=== PATIENT | male | born 1965 | race African-American/Black ===

== ENCOUNTER 2021-09-11 08:19 | Emergency (ER) | payer OTHER ==
[2021-09-11 08:28] VITALS: TEMP 98.8
[2021-09-11] MEDS ORDERED: SODIUM CHLORIDE 0.9% 1,000 ML IV STA (08:35)
[2021-09-11] MEDS ORDERED: HYDROmorphone 1 MG/ML 1 ML SYRINGE IVP STA (08:40)
[2021-09-11 08:55] LABS: Basophils # (A) 0.1 k/uL (0-0.2); Basophils % (A) 1 %; Eosinophils # (A) 0.2 k/uL (0-0.7); Eosinophils % (A) 4 %; HCT 44.8 % (39.0-53.0); HGB 14.7 gm/dL (13.0-17.5); Lymphocytes # (A) 2.5 k/uL (1.0-4.8); Lymphocytes % (A) 38 %; MCH 25.8 pg (25.0-35.0); MCHC 32.7 g/dL (31.0-37.0); MCV 78.9 fL (80.0-100.0); Mean Platelet Volume 7.1; Monocytes # (A) 0.6 k/uL (0-1.0); Monocytes % (A) 9 %; Neutrophils # (A) 3.1 k/uL (1.3-7.7); Neutrophils % (A) 47 %; Platelet Count 267 k/uL (150-450); RBC 5.68 m/uL (4.30-5.90); RDW 14.7 % (11.5-15.5); WBC 6.6 k/uL (3.8-10.6)
[2021-09-11 08:59] LABS: Appearance,Urine Clear (Clear); Bilirubin,Urine Negative (Negative); Blood,Urine Small (Negative); Color,Urine Yellow; Glucose,Urine (UA) Negative (Negative); Ketones,Urine Negative (Negative); Leukocyte Esterase,Urine Negative (Negative); Mucus,Urine Rare /hpf; Nitrite,Urine Negative (Negative); Protein,Urine Negative (Negative); RBC,Urine 1 /hpf (0-5); Specific Gravity,Urine 1.026 (1.001-1.035); Urobilinogen,Urine <2.0 mg/dL (<2.0); WBC,Urine 2 /hpf (0-5)
[2021-09-11 09:05] LABS: ALT 24 U/L (4-49); AST 25 U/L (17-59); African American GFR (CKD) >90 (>60 ml/min/1.73 sqM); Albumin 4.2 g/dL (3.5-5.0); Alkaline Phosphatase 91 U/L (38-126); Amylase 95 U/L (30-110); Anion Gap 9 mmol/L; Blood Urea Nitrogen 18 mg/dL (9-20); Calcium 9.4 mg/dL (8.4-10.2); Carbon Dioxide 24 mmol/L (22-30); Chloride 105 mmol/L (98-107); Glucose 120 mg/dL (74-99); Lipase 66 U/L (23-300); Non-African American GFR(CKD) 79 (>60 ml/min/1.73 sqM); Potassium 4.3 mmol/L (3.5-5.1); Sodium 138 mmol/L (137-145); Total Bilirubin 0.5 mg/dL (0.2-1.3); Total Protein 8.1 g/dL (6.3-8.2)
--- NOTE | 2021-09-11 10:03 | CT ---
EXAMINATION TYPE: CT abdomen pelvis w con DATE OF EXAM: 09/11/2021 COMPARISON: None HISTORY: Left lower quadrant pain. CT DLP: 1332.4 mGycm, Automated Exposure Control for Dose Reduction was Utilized. CONTRAST: CT scan of the abdomen and pelvis is performed without oral but with IV Contrast, patient injected wi th 100 mL of Isovue 300. FINDINGS: LUNG BASES: No significant abnormality is appreciated. LIVER/GB: There is rim calcified 2.3 cm inferior gallstone. No surrounding inflammatory change or fat stranding. PANCREAS: No significant abnormality is seen. SPLEEN: No significant abnormality is seen. ADRENALS: No significant abnormality is seen. KIDNEYS: There are simple appearing 2.8 cm thin-walled cyst lower pole left kidney. Subcentimeter les ion centrally axial image 23 delayed phase images. Symmetric cortical uptake and excretion without hy dronephrosis seen bilaterally. BOWEL: Small bowel feces sign terminal ileum. No suspicious small bowel dilatation. Findings consist ent with delayed passage of ingested material to colonic level. Normal-appearing appendix ascending f rom cecum. PROSTATE/SEMINAL VESICLES: Enlarged prostate consistent with BPH. Scattered tiny bilateral pelvic phl eboliths. LYMPH NODES: No greater than 1cm abdominal or pelvic lymph nodes are appreciated. OSSEOUS STRUCTURES: Mild to moderate multilevel spurring. [id number] disc space narrowing L3-L4 and L4-L5 levels. Facet arthropathy in the lower lumbar spine. OTHER: No significant additional abnormality is seen. IMPRESSION: No significant acute finding is seen to account for patient's clinical symptoms of left lower quadrant pain.
--- NOTE | 2021-09-11 10:30 | ED ---
Abdominal Pain HPI - General Chief Complaint: Abdominal Pain Stated Complaint: L side swollen & tingling, Hypertension Time Seen by Provider: 09/11/21 08:33 Source: patient, RN notes reviewed Mode of arrival: ambulatory Limitations: no limitations - History of Present Illness Initial Comments: Patient is a 55-year-old male that presents to the emergency department complaining of high blood pressure left lower quadrant abdominal pain. Patient notes this pain started late last night early this morning. Patient denied any history of kidney stones diverticulitis or any other abdominal issues. Patient did appear to be moderately uncomfortable sitting up in bed. Patient denied any ALLERGIES to medications. Patient denied chest pain shortness of breath headache nausea vomiting diarrhea constipation fever fatigue chills. - Related Data Home Medications Medication Instructions Recorded Confirmed Albuterol Sulfate [Ventolin HFA] 1 puff INHALATION RT-QID PRN 09/11/21 09/11/21 Budesonide/Formoterol Fumarate 2 puff INHALATION RT-BID 09/11/21 09/11/21 [Symbicort 160-4.5 Mcg Inhaler] Chlorthalidone [Hygroton] 25 mg PO DAILY 09/11/21 09/11/21 Ergocalciferol [Vitamin D2 (1250 1,250 mcg PO Q30D 09/11/21 09/11/21 Mcg = 99017 Iu)] Ipratropium-Albuterol Nebulize 3 ml INHALATION RT-QID 09/11/21 09/11/21 [Duoneb 0.5 mg-3 mg/3 ml Soln] Losartan Potassium [Cozaar] 100 mg PO DAILY 09/11/21 09/11/21 Montelukast [Singulair] 10 mg PO DAILY 09/11/21 09/11/21 amLODIPine [Norvasc] 10 mg PO DAILY 09/11/21 09/11/21 hydrALAZINE HCL [Apresoline] 25 mg PO TID 09/11/21 09/11/21 Allergies Allergy/AdvReac Type Severity Reaction Status Date / Time No Known Allergies Allergy Verified 09/11/21 10:26 Review of Systems ROS Statement: Those systems with pertinent positive or pertinent negative responses have been documented in the HPI. ROS Other: All systems not noted in ROS Statement are negative. Past Medical History Past Medical History: Asthma, Hypertension History of Any Multi-Drug Resistant Organisms: None Reported Past Surgical History: No Surgical Hx Reported Past Psychological History: No Psychological Hx Reported Smoking Status: Never smoker Past Alcohol Use History: None Reported Past Drug Use History: None Reported General Exam Limitations: no limitations General appearance: alert, in no apparent distress Head exam: Present: atraumatic, normocephalic, normal inspection Eye exam: Present: normal appearance, PERRL, EOMI. Absent: scleral icterus, conjunctival injection, periorbital swelling ENT exam: Present: normal exam, mucous membranes moist Neck exam: Present: normal inspection Respiratory exam: Present: normal lung sounds bilaterally. Absent: respiratory distress, wheezes, rales, rhonchi, stridor Cardiovascular Exam: Present: regular rate, normal rhythm, normal heart sounds. Absent: systolic murmur, diastolic murmur, rubs, gallop, clicks GI/Abdominal exam: Present: soft, tenderness (Left lower quadrant, left flank.), normal bowel sounds. Absent: distended, guarding, rebound, rigid Extremities exam: Present: normal inspection, full ROM, normal capillary refill. Absent: tenderness, pedal edema, joint swelling, calf tenderness Neurological exam: Present: alert, oriented X3 Psychiatric exam: Present: normal affect, normal mood Skin exam: Present: warm, dry, intact, normal color. Absent: rash Course Vital Signs 09/11/21 09/11/21 08:25 10:27 Temperature 98.8 F Pulse Rate 74 64 Respiratory 20 18 Rate Blood Pressure 151/91 128/80 O2 Sat by Pulse 98 94 L Oximetry Medical Decision Making - Medical Decision Making 55-year-old male complaining of left lower quadrant pain was one. Labs, 1 L normal saline, a milligram of Dilaudid CT of the abdomen and pelvis ordered. Labs unremarkable. CT shows no acute findings. Given small to blood in the urine patient most likely has a small kidney stone. Case discussed with Dr. Hernandez, patient discharge home. Patient will be given referral to GI specialist. - Lab Data Result diagrams: 09/11/21 08:42 09/11/21 08:42 Lab Results 09/11/21 09/11/21 09/11/21 Range/Units 08:42 08:42 08:42 WBC 6.6 (3.8-10.6) k/uL RBC 5.68 (4.30-5.90) m/uL Hgb 14.7 (13.0-17.5) gm/dL Hct 44.8 (39.0-53.0) % MCV 78.9 L (80.0-100.0) fL MCH 25.8 (25.0-35.0) pg MCHC 32.7 (31.0-37.0) g/dL RDW 14.7 (11.5-15.5) % Plt Count 267 (150-450) k/uL MPV 7.1 Neutrophils % 47 % Lymphocytes % 38 % Monocytes % 9 % Eosinophils % 4 % Basophils % 1 % Neutrophils # 3.1 (1.3-7.7) k/uL Lymphocytes # 2.5 (1.0-4.8) k/uL Monocytes # 0.6 (0-1.0) k/uL Eosinophils # 0.2 (0-0.7) k/uL Basophils # 0.1 (0-0.2) k/uL Sodium 138 (137-145) mmol/L Potassium 4.3 (3.5-5.1) mmol/L Chloride 105 (98-107) mmol/L Carbon Dioxide 24 (22-30) mmol/L Anion Gap 9 mmol/L BUN 18 (9-20) mg/dL Creatinine 1.07 (0.66-1.25) mg/dL Est GFR (CKD-EPI)AfAm >90 (>60 ml/min/1.73 sqM) Est GFR (CKD-EPI)NonAf 79 (>60 ml/min/1.73 sqM) Glucose 120 H (74-99) mg/dL Calcium 9.4 (8.4-10.2) mg/dL Total Bilirubin 0.5 (0.2-1.3) mg/dL AST 25 (17-59) U/L ALT 24 (4-49) U/L Alkaline Phosphatase 91 (38-126) U/L Total Protein 8.1 (6.3-8.2) g/dL Albumin 4.2 (3.5-5.0) g/dL Amylase 95 (30-110) U/L Lipase 66 (23-300) U/L Urine Color Yellow Urine Appearance Clear (Clear) Urine pH 5.0 (5.0-8.0) Ur Specific [place] 1.026 (1.001-1.035) Urine Protein Negative (Negative) Urine Glucose (UA) Negative (Negative) Urine Ketones Negative (Negative) Urine Blood Small H (Negative) Urine Nitrite Negative (Negative) Urine Bilirubin Negative (Negative) Urine Urobilinogen <2.0 (<2.0) mg/dL Ur Leukocyte Esterase Negative (Negative) Urine RBC 1 (0-5) /hpf Urine WBC 2 (0-5) /hpf Urine Mucus Rare H (None) /hpf - EKG Data -: EKG Interpreted by Me EKG shows normal: sinus rhythm Rate: normal EKG Comments: Ventricular rate 62 bpm, WV interval 146 ms, QRS duration 96 ms, QTC 456 ms, PRT axes 62/49/67, normal sinus rhythm, normal ECG. - Radiology Data Radiology results: report reviewed, image reviewed CT of the abdomen and pelvis: No significant acute findings seen to come for patient's clinical symptoms of left lower quadrant pain. Disposition Clinical Impression: Abdominal pain Disposition: HOME SELF-CARE Condition: Stable Instructions (If sedation given, give patient instructions): Abdominal Pain (ED) Additional Instructions: Please return to the Emergency Department if symptoms worsen or any other concerns. Follow-up with primary care 1-2 days. Follow-up with GI specialist when feasible. Take Tylenol Motrin alternating every 3 hours as needed for pain. Is patient prescribed a controlled substance at d/c from ED?: No Referrals: Jeff Fine MD [Primary Care Provider] - 1-2 days Time of Disposition: 10:41
[2021-09-11 10:36] VITALS: BP 128/80; PULSE 64; RESP 18
== END 2021-09-11 10:55 | disposition home or self-care (01) ==
LOC: EC 08:19
DX: R10.9 Unspecified abdominal pain (principal); J45.909 Unspecified asthma, uncomplicated; I10 Essential (primary) hypertension; Z79.51 Long term (current) use of inhaled steroids; Z79.899 Other long term (current) drug therapy
CPT/HCPCS: 36415; 80053; 82150; 83690; 85025; 81001; 74177; 99284; 96374; 96361; J1170; Q9967

== ENCOUNTER → 2022-05-14 | Outpatient (CLI) | payer OTHER ==
--- NOTE | 2022-05-14 23:02 | CT ---
EXAMINATION TYPE: CT abdomen w con CT DLP: 903 mGycm, Automated exposure control for dose reduction was used. DATE OF EXAM: 05/14/2022 6:17 PM COMPARISON: 09/11/2021 CT abdomen pelvis. CLINICAL INDICATION:Male, 56 years old with history of R10.12 LUQ abd pain; LUQ sharp pain that radia jackson to his side and back x2 months TECHNIQUE: Axial CT of the abdomen. Sagittal and [facility] Contrast used:100 mL of Isovue 300 with IV Contrast, Oral contrast used: with Oral Contrast FINDINGS: LOWER CHEST: Unremarkable ABDOMEN LIVER: Diffusely hypoattenuating parenchyma. GALLBLADDER AND BILE DUCTS: The gallbladder demonstrates diffuse circumferential wall thickening chacho uring up to 15 mm with ill-defined borders of the gallbladder extending along the inferior margin of the liver. PANCREAS: Unremarkable. SPLEEN: Unremarkable. ADRENAL GLANDS: Unremarkable. KIDNEYS AND URETERS: No evidence of hydronephrosis or renal calculus. The ureters are unremarkable. STOMACH AND BOWEL: There is circumferential thickening of the distal esophagus extending into the gas tric cardia measuring up to 9 mm in thickness and the distal esophagus with diffusely thickened super ior aspect of the gastric lumen measuring up to 2.1 cm. No evidence of bowel obstruction. Appendix is normal/ PERITONEUM: No evidence of pneumoperitoneum or free fluid. VASCULATURE: No evidence of aortic aneurysm. MUSCULOSKELETAL: Destructive osseous lesion with soft tissue component involving the redundant abdome n (no medial aspect of the left 11th rib measuring approximately 3.4 x 2.5 x by 2.3 cm. There is a crowe spicious lesion within the right iliac bone series 3 image 61 measuring 6 mm along with the vertebral body L1 measuring up to 15 mm. Lucent area within the right zone 1 of the sacrum measuring up to 16 mm with another 6 mm lesion more anteriorly. LYMPH NODES: Scattered enlarged lymph nodes are seen along the retroperitoneum example includes more confluent area to the left of the aorta measuring at least 3.8 x 1.6 cm. SOFT TISSUE/ABDOMINAL WALL: Unremarkable IMPRESSION: 1. Distal esophageal wall thickening extending into the gastric cardia , this in combination with le ft rib #11 expansile soft tissue lesion, retroperitoneal lymphadenopathy and other osseous lesions ar e concerning for primary malignancy with metastatic disease. 2. Diffuse marked gallbladder wall thickening measuring up to 15 mm with ill-defined border with the liver. This may represent a separate infectious/inflammatory process versus metastatic disease from # 1 versus primary synchronous malignancy. Further evaluation with dedicated right upper quadrant limit ed ultrasound of the gallbladder is recommended. 3. Hepatic steatosis.
== END | disposition home or self-care (01) ==
LOC: RADCTMAIN 16:58
PROVIDERS: ATTEND Family Medicine
DX: K76.0 Fatty (change of) liver, not elsewhere classified (principal); K82.8 Other specified diseases of gallbladder
CPT/HCPCS: 74160; Q9967

== ENCOUNTER 2022-06-09 04:43 | Inpatient (IN) | payer OTHER ==
[2022-06-09] MEDS ORDERED: HYDROmorphone 1 MG/ML 1 ML SYRINGE IVP STA (05:04)
[2022-06-09] MEDS ORDERED: PANTOPRAZOLE 40 MG/10 ML VIAL IVP STA (05:04)
[2022-06-09] MEDS ORDERED: PROCHLORPERAZINE INJ 10 MG/2 ML VIAL IVP STA (05:04)
--- NOTE | 2022-06-09 05:05 | ED ---
GI Bleed HPI - General Chief complaint: GI Bleed Stated complaint: SOB Time Seen by Provider: 06/09/22 04:48 Source: patient, EMS, RN notes reviewed, old records reviewed Mode of arrival: EMS Limitations: no limitations - History of Present Illness Initial comments: This is a 56-year-old male to the emergency department for evaluation. Patient's well-known to our emergency department, patient presents today for evaluation of abdominal pain chest pain and vomiting blood. Patient is significantly nauseous. Patient does have chest pain and abdominal pain. Patient is not lightheaded dizzy or weak. Patient has no prior history of bleeding from his stomach MD complaint: blood streaked emesis -: hour(s) Radiation: none Severity scale (1-10): 7 Quality: sharp, constant Consistency: constant Improves with: none Worsens with: vomiting Context: history of GI bleed Associated Symptoms: abdominal pain, nausea, vomiting Treatments Prior to Arrival: none - Related Data Home Medications Medication Instructions Recorded Confirmed Budesonide/Formoterol Fumarate 2 puff INHALATION RT-BID 09/11/21 05/26/22 [Symbicort 160-4.5 Mcg Inhaler] Chlorthalidone [Hygroton] 25 mg PO DAILY 09/11/21 05/26/22 Losartan Potassium [Cozaar] 100 mg PO DAILY 09/11/21 05/26/22 Montelukast [Singulair] 10 mg PO DAILY 09/11/21 05/26/22 amLODIPine [Norvasc] 10 mg PO DAILY 09/11/21 05/26/22 Albuterol Sulfate [Proair Hfa] 1 puff INHALATION RT-QID PRN 05/26/22 05/26/22 hydrALAZINE HCL [Apresoline] 10 mg PO BID 05/26/22 05/26/22 Previous Rx's Medication Instructions Recorded Tamsulosin [Flomax] 0.4 mg PO PC-SUPPER #30 cap 05/29/22 Allergies Allergy/AdvReac Type Severity Reaction Status Date / Time No Known Allergies Allergy Verified 06/09/22 04:48 Review of Systems ROS Statement: Those systems with pertinent positive or pertinent negative responses have been documented in the HPI. ROS Other: All systems not noted in ROS Statement are negative. Past Medical History Past Medical History: Asthma, Cancer, Hypertension Additional Past Medical History / Comment(s): Recent difficulty swallowing/esophageal stricture. Stomach CA History of Any Multi-Drug Resistant Organisms: None Reported Past Surgical History: No Surgical Hx Reported Past Anesthesia/Blood Transfusion Reactions: Unable to Obtain Additional Past Anesthesia/Blood Transfusion Reaction / Comment(s): Pt has never had surgery/anesthesia. Past Psychological History: No Psychological Hx Reported Smoking Status: Never smoker Past Alcohol Use History: None Reported Past Drug Use History: None Reported - Past Family History Father Family Medical History: No Reported History Additional Family Medical History / Comment(s): Father is healthy Mother Additional Family Medical History / Comment(s): Mother has a trach/pt cannot recall reason. Brother(s) Additional Family Medical History / Comment(s): Brother has colostomy, pt cannot recall reason. General Exam Limitations: no limitations General appearance: alert, in no apparent distress Head exam: Present: atraumatic, normocephalic, normal inspection Eye exam: Present: normal appearance, PERRL, EOMI. Absent: scleral icterus, conjunctival injection, periorbital swelling ENT exam: Present: normal exam, mucous membranes moist Neck exam: Present: normal inspection. Absent: tenderness, meningismus, lymphadenopathy Respiratory exam: Present: normal lung sounds bilaterally. Absent: respiratory distress, wheezes, rales, rhonchi, stridor Cardiovascular Exam: Present: normal rhythm, tachycardia, normal heart sounds. Absent: systolic murmur, diastolic murmur, rubs, gallop, clicks GI/Abdominal exam: Present: soft, normal bowel sounds. Absent: distended, tenderness, guarding, rebound, rigid Extremities exam: Present: normal inspection, full ROM, normal capillary refill. Absent: tenderness, pedal edema, joint swelling, calf tenderness Back exam: Present: normal inspection Neurological exam: Present: alert, oriented X3, CN II-XII intact Psychiatric exam: Present: normal affect, normal mood Skin exam: Present: warm, dry, intact, normal color. Absent: rash Course Vital Signs 06/09/22 06/09/22 06/09/22 04:48 04:55 06:00 Temperature 100 F H 98.9 F Pulse Rate 100 96 100 Respiratory 16 16 Rate Blood Pressure 86/59 102/62 97/62 O2 Sat by Pulse 98 97 Oximetry - Reevaluation(s) Reevaluation #1: 06/09/22 07:54 Record is reviewed Reevaluation #2: 06/09/22 07:54 No active upper GI bleeding or vomiting of blood here in the ER Reevaluation #3: 06/09/22 07:55 Patient informed results questions answered - Consultations Consultation #1: Spoke with Dr. Fine who agrees to admit this patient Medical Decision Making - Medical Decision Making 56 male presents today for evaluation. Presents for known history of stomach cancer today vomiting blood. He does have significant anemia which she will transfuse. Surgery consult - Lab Data Result diagrams: 06/09/22 05:04 06/09/22 05:04 Lab Results 06/09/22 06/09/22 06/09/22 Range/Units 05:00 05:04 05:04 WBC 10.4 (3.8-10.6) k/uL RBC 2.61 L (4.30-5.90) m/uL Hgb 6.3 L* D (13.0-17.5) gm/dL Hct 20.5 L (39.0-53.0) % MCV 78.4 L (80.0-100.0) fL MCH 24.0 L (25.0-35.0) pg MCHC 30.6 L (31.0-37.0) g/dL RDW 16.4 H (11.5-15.5) % Plt Count 552 H (150-450) k/uL MPV 7.6 Neutrophils % 73 % Lymphocytes % 20 % Monocytes % 4 % Eosinophils % 1 % Basophils % 1 % Neutrophils # 7.6 (1.3-7.7) k/uL Lymphocytes # 2.1 (1.0-4.8) k/uL Monocytes # 0.4 (0-1.0) k/uL Eosinophils # 0.1 (0-0.7) k/uL Basophils # 0.1 (0-0.2) k/uL Hypochromasia Moderate Anisocytosis Slight PT 11.7 (9.0-12.0) sec INR 1.1 (<1.2) APTT 21.7 L (22.0-30.0) sec Sodium (137-145) mmol/L Potassium (3.5-5.1) mmol/L Chloride (98-107) mmol/L Carbon Dioxide (22-30) mmol/L Anion Gap mmol/L BUN (9-20) mg/dL Creatinine (0.66-1.25) mg/dL Est GFR (CKD-EPI)AfAm (>60 ml/min/1.73 sqM) Est GFR (CKD-EPI)NonAf (>60 ml/min/1.73 sqM) Glucose (74-99) mg/dL Calcium (8.4-10.2) mg/dL Total Bilirubin (0.2-1.3) mg/dL AST (17-59) U/L ALT (4-49) U/L Alkaline Phosphatase (38-126) U/L Troponin I (0.000-0.034) ng/mL Total Protein (6.3-8.2) g/dL Albumin (3.5-5.0) g/dL Lipase (23-300) U/L Blood Type Blood Type Confirm O Positive Blood Type Recheck Bld Type Recheck Status Antibody Screen Crossmatch Spec Expiration Date 06/09/22 06/09/22 06/09/22 Range/Units 05:04 05:04 05:04 WBC (3.8-10.6) k/uL RBC (4.30-5.90) m/uL Hgb (13.0-17.5) gm/dL Hct (39.0-53.0) % MCV (80.0-100.0) fL MCH (25.0-35.0) pg MCHC (31.0-37.0) g/dL RDW (11.5-15.5) % Plt Count (150-450) k/uL MPV Neutrophils % % Lymphocytes % % Monocytes % % Eosinophils % % Basophils % % Neutrophils # (1.3-7.7) k/uL Lymphocytes # (1.0-4.8) k/uL Monocytes # (0-1.0) k/uL Eosinophils # (0-0.7) k/uL Basophils # (0-0.2) k/uL Hypochromasia Anisocytosis PT (9.0-12.0) sec INR (<1.2) APTT (22.0-30.0) sec Sodium 130 L (137-145) mmol/L Potassium 3.5 (3.5-5.1) mmol/L Chloride 94 L (98-107) mmol/L Carbon Dioxide 20 L (22-30) mmol/L Anion Gap 16 mmol/L BUN 35 H (9-20) mg/dL Creatinine 1.09 (0.66-1.25) mg/dL Est GFR (CKD-EPI)AfAm 88 (>60 ml/min/1.73 sqM) Est GFR (CKD-EPI)NonAf 76 (>60 ml/min/1.73 sqM) Glucose 196 H (74-99) mg/dL Calcium 8.4 (8.4-10.2) mg/dL Total Bilirubin 0.3 (0.2-1.3) mg/dL AST 23 (17-59) U/L ALT 18 (4-49) U/L Alkaline Phosphatase 96 (38-126) U/L Troponin I <0.012 (0.000-0.034) ng/mL Total Protein 6.5 (6.3-8.2) g/dL Albumin 3.2 L (3.5-5.0) g/dL Lipase (23-300) U/L Blood Type O Positive Blood Type Confirm Blood Type Recheck No Previous Record Bld Type Recheck Status CABO Indicated Antibody Screen NEGATIVE Crossmatch See Detail Spec Expiration Date 06/12/2022 - 230306/09/22 Range/Units 05:04 WBC (3.8-10.6) k/uL RBC (4.30-5.90) m/uL Hgb (13.0-17.5) gm/dL Hct (39.0-53.0) % MCV (80.0-100.0) fL MCH (25.0-35.0) pg MCHC (31.0-37.0) g/dL RDW (11.5-15.5) % Plt Count (150-450) k/uL MPV Neutrophils % % Lymphocytes % % Monocytes % % Eosinophils % % Basophils % % Neutrophils # (1.3-7.7) k/uL Lymphocytes # (1.0-4.8) k/uL Monocytes # (0-1.0) k/uL Eosinophils # (0-0.7) k/uL Basophils # (0-0.2) k/uL Hypochromasia Anisocytosis PT (9.0-12.0) sec INR (<1.2) APTT (22.0-30.0) sec Sodium (137-145) mmol/L Potassium (3.5-5.1) mmol/L Chloride (98-107) mmol/L Carbon Dioxide (22-30) mmol/L Anion Gap mmol/L BUN (9-20) mg/dL Creatinine (0.66-1.25) mg/dL Est GFR (CKD-EPI)AfAm (>60 ml/min/1.73 sqM) Est GFR (CKD-EPI)NonAf (>60 ml/min/1.73 sqM) Glucose (74-99) mg/dL Calcium (8.4-10.2) mg/dL Total Bilirubin (0.2-1.3) mg/dL AST (17-59) U/L ALT (4-49) U/L Alkaline Phosphatase (38-126) U/L Troponin I (0.000-0.034) ng/mL Total Protein (6.3-8.2) g/dL Albumin (3.5-5.0) g/dL Lipase 83 (23-300) U/L Blood Type Blood Type Confirm Blood Type Recheck Bld Type Recheck Status Antibody Screen Crossmatch Spec Expiration Date - EKG Data -: EKG Interpreted by Me (EKG is sinus rhythm 97 NE 144 QRS 94 QTC 462) Critical Care Time Critical Care Time: Yes Total Critical Care Time: 31 Disposition Clinical Impression: Anemia, Abdominal pain, Stomach cancer, UGIB (upper gastrointestinal bleed) Disposition: ADMITTED IP TO THIS [facility] Condition: Serious Is patient prescribed a controlled substance at d/c from ED?: No Referrals: Jeff Fine MD [Primary Care Provider] - 1-2 days Time of Disposition: 07:55
[2022-06-09 05:23] LABS: Anisocytosis Slight; Basophils # (A) 0.1 k/uL (0-0.2); Basophils % (A) 1 %; Eosinophils # (A) 0.1 k/uL (0-0.7); Eosinophils % (A) 1 %; HCT 20.5 % (39.0-53.0); Hypochromasia Moderate; Lymphocytes # (A) 2.1 k/uL (1.0-4.8); Lymphocytes % (A) 20 %; MCHC 30.6 g/dL (31.0-37.0); MCV 78.4 fL (80.0-100.0); Mean Platelet Volume 7.6; Monocytes # (A) 0.4 k/uL (0-1.0); Monocytes % (A) 4 %; Neutrophils # (A) 7.6 k/uL (1.3-7.7); Neutrophils % (A) 73 %; Platelet Count 552 k/uL (150-450); RBC 2.61 m/uL (4.30-5.90); RDW 16.4 % (11.5-15.5); WBC 10.4 k/uL (3.8-10.6)
[2022-06-09 05:33] LABS: Albumin 3.2 g/dL (3.5-5.0); Calcium 8.4 mg/dL (8.4-10.2); Potassium 3.5 mmol/L (3.5-5.1); Total Bilirubin 0.3 mg/dL (0.2-1.3); Total Protein 6.5 g/dL (6.3-8.2)
[2022-06-09 05:34] LABS: HGB 6.3 gm/dL (13.0-17.5)
[2022-06-09 05:40] LABS: INR 1.1 (<1.2); Partial Thromboplastin Time 21.7 sec (22.0-30.0); Prothrombin Time 11.7 sec (9.0-12.0)
[2022-06-09] MEDS ORDERED: NALOXONE 0.4 MG/ML 1 ML VIAL IV PRN (07:28)
[2022-06-09] MEDS ORDERED: HYDROmorphone 1 MG/ML 1 ML SYRINGE IVP PRN (07:29)
[2022-06-09] MEDS: SODIUM CHLORIDE 0.9% 1,000 ML IV SCH ×3 (11:49→23:12)
--- NOTE | 2022-06-09 18:35 | P.GSCN ---
History of Present Illness Consult date: 06/09/22 Reason for Consult: Vomiting blood History of present illness: Patient is known to me due to recent EGD where we diagnosed cancer at the GE junction. Tomorrow he scheduled to start chemotherapy. He still hasn't been able to eat well. He's taking some liquids. The patient has had some vomiting blood and was very lightheaded and dizzy so CBC done showing marked anemia denies blood in the stool or dark tarry stool. Denies abdominal pain Review of Systems All systems: negative Past Medical History Past Medical History: Asthma, Cancer, Hypertension Additional Past Medical History / Comment(s): Recent difficulty swallowing/esophageal stricture. Stomach CA History of Any Multi-Drug Resistant Organisms: None Reported Past Surgical History: No Surgical Hx Reported Past Anesthesia/Blood Transfusion Reactions: Unable to Obtain Additional Past Anesthesia/Blood Transfusion Reaction / Comm: Pt has never had surgery/anesthesia. Past Psychological History: No Psychological Hx Reported Additional Psychological History / Comment(s): Pt resides alone. He uses no assitive device. He does not drive, he walks. Smoking Status: Never smoker Past Alcohol Use History: None Reported Past Drug Use History: None Reported - Past Family History Father Family Medical History: No Reported History Additional Family Medical History / Comment(s): Father is healthy Mother Additional Family Medical History / Comment(s): Mother has a trach/pt cannot recall reason. Brother(s) Additional Family Medical History / Comment(s): Brother has colostomy, pt cannot recall reason. Medications and Allergies Home Medications Medication Instructions Recorded Confirmed Type Budesonide/Formoterol Fumarate 2 puff INHALATION RT-BID 09/11/21 06/09/22 History [Symbicort 160-4.5 Mcg Inhaler] Chlorthalidone [Hygroton] 25 mg PO DAILY 09/11/21 06/09/22 History Losartan Potassium [Cozaar] 100 mg PO DAILY 09/11/21 06/09/22 History Montelukast [Singulair] 10 mg PO DAILY 09/11/21 06/09/22 History amLODIPine [Norvasc] 10 mg PO DAILY 09/11/21 06/09/22 History Albuterol Sulfate [Proair Hfa] 1 puff INHALATION RT-QID PRN 05/26/22 06/09/22 History hydrALAZINE HCL [Apresoline] 10 mg PO BID 05/26/22 06/09/22 History Tamsulosin [Flomax] 0.4 mg PO PC-SUPPER #30 cap 05/29/22 06/09/22 Rx HYDROcodone/APAP 5-325MG [[place] 1 tab PO QID PRN 06/09/22 06/09/22 History 5-325] Allergies Allergy/AdvReac Type Severity Reaction Status Date / Time No Known Allergies Allergy Verified 06/09/22 08:11 Surgical - Exam Osteopathic Statement: *. No significant issues noted on an osteopathic structural exam other than those noted in the History and Physical/Consult. Vital Signs Temp Pulse Resp BP Pulse Ox 100 F H 100 16 86/59 98 06/09/22 04:48 06/09/22 04:48 06/09/22 04:48 06/09/22 04:48 06/09/22 04:48 - General no distress - Eyes normal ocular movement - Abdomen Abdomen: soft, non tender Results - Labs 06/09/22 05:04 06/09/22 05:04 Abnormal Lab Results - Last 24 Hours (Table) 06/09/22 06/09/22 06/09/22 Range/Units 05:04 05:04 05:04 RBC 2.61 L (4.30-5.90) m/uL Hgb 6.3 L* D (13.0-17.5) gm/dL Hct 20.5 L (39.0-53.0) % MCV 78.4 L (80.0-100.0) fL MCH 24.0 L (25.0-35.0) pg MCHC 30.6 L (31.0-37.0) g/dL RDW 16.4 H (11.5-15.5) % Plt Count 552 H (150-450) k/uL APTT 21.7 L (22.0-30.0) sec Sodium 130 L (137-145) mmol/L Chloride 94 L (98-107) mmol/L Carbon Dioxide 20 L (22-30) mmol/L BUN 35 H (9-20) mg/dL Glucose 196 H (74-99) mg/dL Albumin 3.2 L (3.5-5.0) g/dL Crossmatch 06/09/22 Range/Units 05:04 RBC (4.30-5.90) m/uL Hgb (13.0-17.5) gm/dL Hct (39.0-53.0) % MCV (80.0-100.0) fL MCH (25.0-35.0) pg MCHC (31.0-37.0) g/dL RDW (11.5-15.5) % Plt Count (150-450) k/uL APTT (22.0-30.0) sec Sodium (137-145) mmol/L Chloride (98-107) mmol/L Carbon Dioxide (22-30) mmol/L BUN (9-20) mg/dL Glucose (74-99) mg/dL Albumin (3.5-5.0) g/dL Crossmatch See Detail Diabetes panel 06/09/22 Range/Units 05:04 Sodium 130 L (137-145) mmol/L Potassium 3.5 (3.5-5.1) mmol/L Chloride 94 L (98-107) mmol/L Carbon Dioxide 20 L (22-30) mmol/L BUN 35 H (9-20) mg/dL Creatinine 1.09 (0.66-1.25) mg/dL Glucose 196 H (74-99) mg/dL Calcium 8.4 (8.4-10.2) mg/dL AST 23 (17-59) U/L ALT 18 (4-49) U/L Alkaline Phosphatase 96 (38-126) U/L Total Protein 6.5 (6.3-8.2) g/dL Albumin 3.2 L (3.5-5.0) g/dL Calcium panel 06/09/22 Range/Units 05:04 Calcium 8.4 (8.4-10.2) mg/dL Albumin 3.2 L (3.5-5.0) g/dL Pituitary panel 06/09/22 Range/Units 05:04 Sodium 130 L (137-145) mmol/L Potassium 3.5 (3.5-5.1) mmol/L Chloride 94 L (98-107) mmol/L Carbon Dioxide 20 L (22-30) mmol/L BUN 35 H (9-20) mg/dL Creatinine 1.09 (0.66-1.25) mg/dL Glucose 196 H (74-99) mg/dL Calcium 8.4 (8.4-10.2) mg/dL Adrenal panel 06/09/22 Range/Units 05:04 Sodium 130 L (137-145) mmol/L Potassium 3.5 (3.5-5.1) mmol/L Chloride 94 L (98-107) mmol/L Carbon Dioxide 20 L (22-30) mmol/L BUN 35 H (9-20) mg/dL Creatinine 1.09 (0.66-1.25) mg/dL Glucose 196 H (74-99) mg/dL Calcium 8.4 (8.4-10.2) mg/dL Total Bilirubin 0.3 (0.2-1.3) mg/dL AST 23 (17-59) U/L ALT 18 (4-49) U/L Alkaline Phosphatase 96 (38-126) U/L Total Protein 6.5 (6.3-8.2) g/dL Albumin 3.2 L (3.5-5.0) g/dL Assessment and Plan (1) Adenocarcinoma of gastroesophageal junction Current Visit: Yes Status: Acute Code(s): C16.0 - MALIGNANT NEOPLASM OF CARDIA SNOMED Code(s): 171041022 (2) Anemia Current Visit: Yes Status: Acute Code(s): D64.9 - ANEMIA, UNSPECIFIED SNOMED Code(s): 789987947 Plan: Bleeding is due to the known gastroesophageal junction cancer. With no active bleeding at would not recommend endoscopy. Have him transfused for symptoms of anemia. Follow-up with his oncologist.
[2022-06-09 18:48] LABS: Anisocytosis Slight; Basophils # (A) 0.1 k/uL (0-0.2); Basophils % (A) 0 %; Eosinophils # (A) 0.1 k/uL (0-0.7); Eosinophils % (A) 1 %; HCT 28.1 % (39.0-53.0); HGB 8.9 gm/dL (13.0-17.5); Hypochromasia Slight; Lymphocytes # (A) 1.9 k/uL (1.0-4.8); Lymphocytes % (A) 16 %; MCH 26.6 pg (25.0-35.0); MCHC 31.9 g/dL (31.0-37.0); MCV 83.5 fL (80.0-100.0); Mean Platelet Volume 7.6; Monocytes # (A) 0.7 k/uL (0-1.0); Monocytes % (A) 6 %; Neutrophils # (A) 9.5 k/uL (1.3-7.7); Neutrophils % (A) 77 %; Platelet Count 425 k/uL (150-450); Poikilocytosis Slight; RBC 3.36 m/uL (4.30-5.90); RDW 17.8 % (11.5-15.5); WBC 12.3 k/uL (3.8-10.6)
[2022-06-09] MEDS: ONDANSETRON 4 MG/2 ML VIAL IVP PRN (23:11)
[2022-06-10 08:17] LABS: Anisocytosis Slight; Basophils # (A) 0.1 k/uL (0-0.2); Basophils % (A) 1 %; Eosinophils # (A) 0.2 k/uL (0-0.7); Eosinophils % (A) 1 %; HCT 25.3 % (39.0-53.0); HGB 8.2 gm/dL (13.0-17.5); Hypochromasia Moderate; Lymphocytes % (A) 18 %; MCH 27.4 pg (25.0-35.0); MCHC 32.2 g/dL (31.0-37.0); MCV 85.1 fL (80.0-100.0); Mean Platelet Volume 7.8; Monocytes # (A) 0.6 k/uL (0-1.0); Monocytes % (A) 5 %; Neutrophils # (A) 8.3 k/uL (1.3-7.7); Neutrophils % (A) 74 %; Platelet Count 365 k/uL (150-450); Poikilocytosis Slight; RBC 2.97 m/uL (4.30-5.90); RDW 18.3 % (11.5-15.5); WBC 11.2 k/uL (3.8-10.6)
[2022-06-10 08:39] LABS: ALT 13 U/L (4-49); AST 17 U/L (17-59); African American GFR (CKD) >90 (>60 ml/min/1.73 sqM); Albumin 2.8 g/dL (3.5-5.0); Alkaline Phosphatase 85 U/L (38-126); Anion Gap 9 mmol/L; Blood Urea Nitrogen 23 mg/dL (9-20); Calcium 8.5 mg/dL (8.4-10.2); Carbon Dioxide 24 mmol/L (22-30); Chloride 99 mmol/L (98-107); Glucose 104 mg/dL (74-99); Non-African American GFR(CKD) >90 (>60 ml/min/1.73 sqM); Potassium 3.8 mmol/L (3.5-5.1); Sodium 132 mmol/L (137-145); Total Bilirubin 0.5 mg/dL (0.2-1.3); Total Protein 5.8 g/dL (6.3-8.2)
[2022-06-10] MEDS: PANTOPRAZOLE 40 MG/10 ML VIAL IV SCH (09:26)
[2022-06-10] MEDS: HYDROmorphone 1 MG/ML 1 ML SYRINGE IVP PRN (17:30)
[2022-06-10] MEDS ORDERED: RX INFO: IV CONTRAST WAS GIVEN 1 EACH MISC MISCELLANE PRN (17:40)
--- NOTE | 2022-06-10 17:58 | P.CONS ---
History of Present Illness - Reason for Consult Consult date: 06/10/22 New diagnosis of GE junction adenocarcinoma Requesting physician: Lily Foster - Chief Complaint Hematemesis, anorexia - History of Present Illness Mr Jovel is a very pleasant 56-year-old man who was seen initially in consult about 2 weeks ago. He was admitted with left abdominal pain, radiating through to the back, constipation for about 3-4 weeks, dysphagia and weight loss as he had not been able to eat. He was seen by his PCP Dr. Fine who sent him for a CT scan when he 1st presented with c/o. CT AP showed esophageal wall thickening extending into the gastric cardia, expansile soft tissue lesion into 11th rib, retroperitoneal lymphadenopathy and other osseous lesions. Diffuse gallbladder thickening. Patient was scheduled to see gastroenterology but, he ended up inpatient. He was seen by Dr. Foster. He had an EGD 05/28/22, mass, found, biopsy positive for adenocarcinoma. Patient was scheduled to see the Medical Oncologist today for biopsy results and plan of care. Patient states he was found on the floor at home, unconscious, and a pool of blood. Currently patient is denying ongoing hematemesis, black or bloody stool, no abdominal pain unless it is being palpated. He can tolerate liquids. He is status post 2 units of blood for a hemoglobin of 6.3 on admit. His hemoglobin is now 8.2. Review of Systems 10 point review of systems is negative except as stated in HPI Past Medical History Past Medical History: Asthma, Cancer, Hypertension Additional Past Medical History / Comment(s): Recent difficulty swallowing/esophageal stricture. Stomach CA History of Any Multi-Drug Resistant Organisms: None Reported Past Surgical History: No Surgical Hx Reported Past Anesthesia/Blood Transfusion Reactions: Unable to Obtain Additional Past Anesthesia/Blood Transfusion Reaction / Comm: Pt has never had surgery/anesthesia. Past Psychological History: No Psychological Hx Reported Additional Psychological History / Comment(s): Pt resides alone. He uses no assitive device. He does not drive, he walks. Smoking Status: Never smoker Past Alcohol Use History: None Reported Past Drug Use History: None Reported - Past Family History Father Family Medical History: No Reported History Additional Family Medical History / Comment(s): Father is healthy Mother Additional Family Medical History / Comment(s): Mother has a trach/pt cannot recall reason. Brother(s) Additional Family Medical History / Comment(s): Brother has colostomy, pt cannot recall reason. Medications and Allergies Home Medications Medication Instructions Recorded Confirmed Type Budesonide/Formoterol Fumarate 2 puff INHALATION RT-BID 09/11/21 06/09/22 History [Symbicort 160-4.5 Mcg Inhaler] Chlorthalidone [Hygroton] 25 mg PO DAILY 09/11/21 06/09/22 History Losartan Potassium [Cozaar] 100 mg PO DAILY 09/11/21 06/09/22 History Montelukast [Singulair] 10 mg PO DAILY 09/11/21 06/09/22 History amLODIPine [Norvasc] 10 mg PO DAILY 09/11/21 06/09/22 History Albuterol Sulfate [Proair Hfa] 1 puff INHALATION RT-QID PRN 05/26/22 06/09/22 History hydrALAZINE HCL [Apresoline] 10 mg PO BID 05/26/22 06/09/22 History Tamsulosin [Flomax] 0.4 mg PO PC-SUPPER #30 cap 05/29/22 06/09/22 Rx HYDROcodone/APAP 5-325MG [[place] 1 tab PO QID PRN 06/09/22 06/09/22 History 5-325] Allergies Allergy/AdvReac Type Severity Reaction Status Date / Time No Known Allergies Allergy Verified 06/09/22 08:11 Physical Exam Vitals: Vital Signs Temp Pulse Pulse Pulse Resp BP BP 06/10/22 04:00 74 16 101/62 06/09/22 23:19 83 99/64 06/09/22 19:47 98.2 F 81 18 98/65 06/09/22 17:00 97.8 F 82 97/63 06/09/22 16:00 97.8 F 82 97/63 06/09/22 14:50 98.0 F 80 102/66 06/09/22 14:20 97.9 F 84 102/67 06/09/22 14:10 98.0 F 84 100/60 06/09/22 14:00 81 20 06/09/22 11:44 97.4 F L 81 20 102/65 06/09/22 10:54 98.0 F 83 102/63 06/09/22 10:52 97 F L 74 20 98/70 06/09/22 08:56 97 F L 81 20 100/70 Pulse Ox 06/10/22 04:00 98 06/09/22 23:19 100 06/09/22 19:47 100 06/09/22 17:00 99 06/09/22 16:00 99 06/09/22 14:50 99 06/09/22 14:20 100 06/09/22 14:10 100 06/09/22 14:00 06/09/22 11:44 100 06/09/22 10:54 100 06/09/22 10:52 100 06/09/22 08:56 100 Intake and Output 06/09/22 06/10/22 06/10/22 22:59 06:59 14:59 Intake Total 310 240 Balance 310 240 Intake: Oral 240 Blood Product 310 Rc As-1 Unit 310 [id number] Other: # Voids 2 - Constitutional General appearance: average body habitus, cooperative, no acute distress - EENT Eyes: anicteric sclerae, EOMI ENT: hearing grossly normal, normal oropharynx - Neck Neck: no lymphadenopathy - Respiratory Respiratory: bilateral: CTA - Cardiovascular Rhythm: regular Heart sounds: normal: S1, S2 Abnormal Heart Sounds: no systolic murmur, no diastolic murmur, no rub, no S3 Gallop, no S4 Gallop, no click, no other leg Peripheral Edema: bilateral: None - Gastrointestinal General gastrointestinal: no absent bowel sounds, no decreased bowel sounds, no distended, no hepatomegaly, no hyperactive bowel sounds, normal bowel sounds, no organomegaly, no rigid, no scaphoid, soft, no splenomegaly, tenderness, no umbilical hernia, no ventral hernia Localized gastrointestinal: tender: RUQ (severe) - Integumentary Integumentary: normal turgor - Neurologic Neurologic: CNII-XII intact - Musculoskeletal Musculoskeletal: strength equal bilaterally - Psychiatric Psychiatric: A&O x's 3, appropriate affect, intact judgment & insight Results CBC & Chem 7: 06/10/22 07:24 06/10/22 07:24 Labs: Abnormal Lab Results - Last 24 Hours (Table) 06/09/22 06/09/22 06/10/22 Range/Units 05:04 18:03 07:24 WBC 12.3 H 11.2 H (3.8-10.6) k/uL RBC 3.36 L 2.97 L (4.30-5.90) m/uL Hgb 8.9 L D 8.2 L (13.0-17.5) gm/dL Hct 28.1 L 25.3 L (39.0-53.0) % RDW 17.8 H 18.3 H (11.5-15.5) % Neutrophils # 9.5 H 8.3 H (1.3-7.7) k/uL Sodium (137-145) mmol/L BUN (9-20) mg/dL Glucose (74-99) mg/dL Total Protein (6.3-8.2) g/dL Albumin (3.5-5.0) g/dL Crossmatch See Detail 06/10/22 Range/Units 07:24 WBC (3.8-10.6) k/uL RBC (4.30-5.90) m/uL Hgb (13.0-17.5) gm/dL Hct (39.0-53.0) % RDW (11.5-15.5) % Neutrophils # (1.3-7.7) k/uL Sodium 132 L (137-145) mmol/L BUN 23 H (9-20) mg/dL Glucose 104 H (74-99) mg/dL Total Protein 5.8 L (6.3-8.2) g/dL Albumin 2.8 L (3.5-5.0) g/dL Crossmatch Assessment and Plan (1) Adenocarcinoma of gastroesophageal junction Current Visit: Yes Status: Acute Priority: High Code(s): C16.0 - MALIGNANT NEOPLASM OF CARDIA SNOMED Code(s): 784462562 (2) Anemia Current Visit: Yes Status: Acute Code(s): D64.9 - ANEMIA, UNSPECIFIED SNOMED Code(s): 918271032 Plan: 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 NGS and PDL 1 pending. Patient does need CT of the chest and the pelvis to complete staging. This will be done while he is inpatient. Trying to find an appointment for patient in the next several days or very early next week so that options for treatment can be discussed davi. Until treatment of the cancer is started episodes of GI bleeding can happen spontaneously. We will keep his CBC monitored in the outpatient setting. Transfuse as needed. For his anemia, 2 doses of IV iron are ordered. We can continue to give iron in the outpatient setting as well. Recommended to patient to ingest a soft diet, mainly liquids for now, so as to not irritate the mucosa of his esophagus or stomach. He verbalized understanding. attests: I have seen and examined patient, performed H&P, developed impression and plan of care. Discussed with dictator. Agree with dictation, documented as a scribe
[2022-06-10] MEDS: IOPAMIDOL CONTRAST (ORAL USE) VIAL PO PRN ×2 (18:31→20:04)
[2022-06-10] MEDS: SODIUM CHLORIDE 0.9% 1,000 ML IV SCH ×2 (19:18→20:58)
[2022-06-10] MEDS: SODIUM FERRIC GLUCONAT-SUCROSE 125 MG in SODIUM CHLORIDE 0.9% 100 ML IVPB SCH (20:59)
--- NOTE | 2022-06-10 21:50 | CT ---
EXAMINATION TYPE: CT ChestAbdPelvis w con DATE OF EXAM: 06/10/2022 COMPARISON: CT abdomen 09/11/2021 HISTORY: staging for eso adenocarcinoma CT DLP: 1033.5 mGycm Automated exposure control for dose reduction was used. CONTRAST: Performed with IV Contrast, patient injected with 100 mL of Isovue 300. Images obtained from the thoracic inlet to the floor of the pelvis with the IV contrast. The lungs are clear of infiltrate. Heart size is normal. No pericardial effusion. No mediastinal elijah opathy. There are no hilar masses. There is no evidence of filling defect in the pulmonary arteries. The thoracic aorta is intact. No aneurysm. There is 2 cm rounded hypodensity with some peripheral enhancement in the inferior right lobe of the liver. There is fluid and apparent wall thickening involving the gallbladder. Gallbladder wall measur es up to 12 mm. There is adjacent fat stranding. There is no evidence of pancreatic mass. There is in creased density at the gastroesophageal junction consistent with tumor. There is circumferential wall thickening at the junction measuring up to 2 cm in thickness. The distal stomach appears intact. Spl een is intact. There is no adrenal mass. Kidneys show satisfactory contrast opacification. There is no hydronephrosi s. There is renal cortical cysts that measure up to 3 cm. No retroperitoneal adenopathy. There is mil d abdominal ascites fluid. The bladder distends smoothly. There is enlarged prostate that measures 5. 6 cm. There is no mesenteric edema. No free air. No sign of a bowel obstruction. There is destructive changes in the T2 vertebral body with compression deformity 25%. There is a 3 cm destructive lesion in the right lateral aspect of the S2 vertebra. This extends to the sacroiliac leyla int. There is some lytic and blastic changes in the right ilium adjacent to the inferior sacroiliac j oint. There is acetabular spurring with degenerative cyst formation in the right acetabulum. There is destructive change involving the posterior left 11th rib with pleural thickening. The sternum is int act. IMPRESSION: Irregular mass at the gastroesophageal junction consistent with tumor. Edematous gallbladder with wall thickening and suggestive of cholecystitis. Gallbladder mass not excl uded. Appearance is not changed compared to recent exam. Destructive changes in the pelvis and sacrum and the T2 vertebra and left 11th rib consistent with me tastatic disease..
[2022-06-11 04:53] LABS: Anisocytosis Slight; HCT 24.4 % (39.0-53.0); Hypochromasia Moderate; MCH 28.1 pg (25.0-35.0); MCHC 32.8 g/dL (31.0-37.0); MCV 85.8 fL (80.0-100.0); Mean Platelet Volume 8.3; Platelet Count 362 k/uL (150-450); Poikilocytosis Slight; RBC 2.84 m/uL (4.30-5.90); RDW 18.7 % (11.5-15.5); WBC 12.4 k/uL (3.8-10.6)
[2022-06-11] MEDS: HYDROmorphone 1 MG/ML 1 ML SYRINGE IVP PRN ×2 (06:41→13:56)
[2022-06-11] MEDS: SODIUM CHLORIDE 0.9% 1,000 ML IV SCH ×3 (06:45→19:32)
[2022-06-11] MEDS: PANTOPRAZOLE 40 MG/10 ML VIAL IV SCH (09:33)
[2022-06-11] MEDS: HYDROcodone/APAP 5-325MG 1 EACH TAB PO PRN ×3 (09:33→21:41)
[2022-06-11] MEDS: polyethylene glycoL 3350 17 GM POWD.PACK PO SCH ×3 (09:34→21:41)
[2022-06-11] MEDS: SODIUM FERRIC GLUCONAT-SUCROSE 125 MG in SODIUM CHLORIDE 0.9% 100 ML IVPB SCH (09:34)
[2022-06-12] MEDS: HYDROmorphone 1 MG/ML 1 ML SYRINGE IVP PRN ×4 (00:10→21:47)
[2022-06-12] MEDS: SODIUM CHLORIDE 0.9% 1,000 ML IV SCH ×3 (06:06→23:15)
--- NOTE | 2022-06-12 06:45 | PN ---
PROGRESS NOTE CHIEF COMPLAINT: Difficulty swallowing and hematemesis. HISTORY OF PRESENT ILLNESS: This gentleman is fairly stable. Dilaudid has been increased and that is helping the pain in his abdomen. He is being evaluated by the Oncology and Radiation Therapy. PHYSICAL EXAMINATION: CHEST: Clear. CARDIAC: Normal. ABDOMEN: Slightly distended, and he has upper abdominal fullness and tenderness. IMPRESSION: Metastatic adenocarcinoma of the esophagus. PLAN: 1. Referred to Palliative Care. 2. Await recommendations from Oncology and by Radiation Therapy. MMODL / IJN: [id number] /
[2022-06-12] MEDS: PANTOPRAZOLE 40 MG/10 ML VIAL IV SCH (08:34)
[2022-06-12] MEDS: polyethylene glycoL 3350 17 GM POWD.PACK PO SCH ×3 (08:35→23:15)
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
[2022-06-12] MEDS: HYDROcodone/APAP 5-325MG 1 EACH TAB PO PRN ×2 (13:28→20:08)
--- NOTE | 2022-06-12 14:29 | P.PN ---
Progress Note - Text Progress Note Date: 06/12/22 PEG tube can be placed if oncology doesn't feel he will be a candidate for surgical resection. If he is a surgical candidate, a jejunal feeding tube can be placed. Await oncology recommendations
[2022-06-12 15:24] LABS: Anisocytosis Slight; Basophils % (A) 0 %; Eosinophils # (A) 0.1 k/uL (0-0.7); Eosinophils % (A) 0 %; HCT 24.2 % (39.0-53.0); HGB 7.7 gm/dL (13.0-17.5); Hypochromasia Marked; Lymphocytes # (A) 1.2 k/uL (1.0-4.8); Lymphocytes % (A) 7 %; MCH 27.9 pg (25.0-35.0); MCHC 31.9 g/dL (31.0-37.0); MCV 87.5 fL (80.0-100.0); Mean Platelet Volume 7.6; Monocytes % (A) 6 %; Neutrophils # (A) 15.2 k/uL (1.3-7.7); Neutrophils % (A) 86 %; Platelet Count 342 k/uL (150-450); Poikilocytosis Slight; RBC 2.77 m/uL (4.30-5.90); RDW 19.6 % (11.5-15.5); WBC 17.6 k/uL (3.8-10.6)
[2022-06-12 15:29] LABS: ALT 11 U/L (4-49); AST 22 U/L (17-59); African American GFR (CKD) >90 (>60 ml/min/1.73 sqM); Albumin 2.7 g/dL (3.5-5.0); Alkaline Phosphatase 115 U/L (38-126); Anion Gap 11 mmol/L; Blood Urea Nitrogen 9 mg/dL (9-20); Calcium 8.6 mg/dL (8.4-10.2); Carbon Dioxide 21 mmol/L (22-30); Chloride 100 mmol/L (98-107); Glucose 95 mg/dL (74-99); Magnesium 1.6 mg/dL (1.6-2.3); Non-African American GFR(CKD) >90 (>60 ml/min/1.73 sqM); Potassium 3.8 mmol/L (3.5-5.1); Sodium 132 mmol/L (137-145); Total Bilirubin 0.6 mg/dL (0.2-1.3); Total Protein 5.7 g/dL (6.3-8.2)
--- NOTE | 2022-06-12 20:07 | P.PN ---
Subjective Progress Note Date: 06/12/[address] with patient and educated on bone scan, discussed nutrition with nursing and agree with feeding tube temporary Objective - Vital Signs Vital signs: Vital Signs Temp 99.0 F 06/12/22 11:23 Pulse 142 H 06/12/22 11:23 Resp 16 06/12/22 11:23 BP 104/69 06/12/22 11:23 Pulse Ox 97 06/12/22 11:23 FiO2 Intake & Output 06/11/22 06/12/22 06/12/22 18:59 06:59 18:59 Intake Total 828 677 6192 Balance 265 999 8320 Intake: Intake, IV Titration 1200 Amount Sodium Chloride 0.9% 1, 1200 000 ml @ 130 mls/hr IV . Q7H42M [facility] Rx#:[id number] Oral 120 100 Other: # Voids 1 1 - Exam - Constitutional General appearance: average body habitus, cooperative, no acute distress - EENT Eyes: anicteric sclerae, EOMI ENT: hearing grossly normal, normal oropharynx - Neck Neck: no lymphadenopathy - Respiratory Respiratory: bilateral: CTA - Cardiovascular Rhythm: regular Heart sounds: normal: S1, S2 Abnormal Heart Sounds: no systolic murmur, no diastolic murmur, no rub, no S3 Gallop, no S4 Gallop, no click, no other leg Peripheral Edema: bilateral: None - Gastrointestinal General gastrointestinal: no absent bowel sounds, no decreased bowel sounds, no distended, no hepatomegaly, no hyperactive bowel sounds, normal bowel sounds, no organomegaly, no rigid, no scaphoid, soft, no splenomegaly, tenderness, no umbilical hernia, no ventral hernia Localized gastrointestinal: tender: RUQ (severe) - Integumentary Integumentary: normal turgor - Neurologic Neurologic: CNII-XII intact - Musculoskeletal Musculoskeletal: strength equal bilaterally - Psychiatric Psychiatric: A&O x's 3, appropriate affect, intact judgment & insight - Labs CBC & Chem 7: 06/12/22 14:39 06/12/22 14:39 Assessment and Plan Plan: Assessment and Plan (1) Adenocarcinoma of gastroesophageal junction Current Visit: Yes Status: Acute Priority: High Code(s): C16.0 - MALIGNANT NEOPLASM OF CARDIA SNOMED Code(s): 641488850 (2) Anemia Current Visit: Yes Status: Acute Code(s): D64.9 - ANEMIA, UNSPECIFIED SNOMED Code(s): 051025596 Plan: 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 NGS and PDL [address] revealed destructive bone lesions sacrum - Bone scan ordered Decreqased po intake - dysphagia, Dr. Foster following, ?Feeding tube temprarily can be considered Repeat CBC today and daily Evidence iron deficiency and status post 2 doses of IV iron are ordered. attests: I have seen and examined patient, performed H&P, developed impression and plan of care. Discussed with dictator. Agree with dictation, documented as a scribe
--- NOTE | 2022-06-12 23:00 | NM ---
EXAMINATION TYPE: NM bone scan whole body DATE OF EXAM: 06/12/2022 COMPARISON: NONE HISTORY: Metastatic disease Delayed whole-body scanning was performed following the injection of 23 mCi Tc 99m MDP. Images acqui red 5.5 hours post injection. FINDINGS: There is focal increased uptake in the inferior aspect of the right sacroiliac joint. There is some i ncreased uptake in the proximal left femur at the greater trochanter. No significant increased uptake seen in the T2 vertebral body or in the left 11th rib. No significant increased uptake in the right lateral mass of the sacrum which is the area of destructive change on the recent CT scan. IMPRESSION: Increased uptake in the right inferior lateral sacroiliac joint is in the area of osteoblastic change in the ileum that measures 2 cm on the recent CT scan of 06/10/2022. The CT appearance is nonspecific . There is increased uptake in the region of the left greater trochanter of the left femur which coul d be osseous metastatic disease. In any event the multiple lytic lesions seen in the 11th rib and the T2 vertebra and the left side of the sacrum on the recent CT scan do not have increased uptake and c ould be rapidly progressing metastatic disease. Also consider myeloma.
[2022-06-13] MEDS: HYDROmorphone 1 MG/ML 1 ML SYRINGE IVP PRN ×4 (02:40→21:37)
--- NOTE | 2022-06-13 04:57 | HP ---
HISTORY AND PHYSICAL CHIEF COMPLAINT: Abdominal pain and hematemesis. HISTORY OF PRESENT ILLNESS: This is a first admission of this 56-year-old -Al[place] male. He has been in the office over the last several weeks with complaints of left abdominal pain and chest pain with difficulty swallowing and weight loss. Studies have determined that he likely has a large carcinoma at the distal esophagus with possible metastasis of the chest. He started to throw up blood and came to the emergency room. He is having significant abdominal pain. He is awaiting endoscopy. REVIEW OF SYSTEMS: He has had no headaches, cough, hemoptysis, melena, hematochezia, urinary complaints, etc. He has lost a great deal of weight over the last several months. Remainder of his history is unremarkable. PHYSICAL EXAMINATION: VITAL SIGNS: Pulse 99, blood pressure is 94/66. GENERAL: He appeared to be in a great deal of discomfort. HEENT: Head, ears, eyes, nose, mouth and throat are normal. CHEST: Clear. CARDIAC: Normal. He does have a tenderness in the left chest wall area. ABDOMEN: Slightly distended and he is tender over the epigastrium. Bowel sounds present. EXTREMITIES: Normal. Neurologically is intact. DIAGNOSES: He was admitted with hospital diagnoses, 1. Hematemesis. 2. Dysphagia. 3. Abnormal weight loss. 4. 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 PLAN: 1. Bedrest. 2. IV fluids. 3. Further workup. 4. Consult with Radiation therapy and Oncology. 5. for discharge planning. MMODL / IJN: [id number] /
[2022-06-13] MEDS: polyethylene glycoL 3350 17 GM POWD.PACK PO SCH ×3 (07:50→21:41)
[2022-06-13] MEDS: PANTOPRAZOLE 40 MG/10 ML VIAL IV SCH (07:50)
[2022-06-13] MEDS: SODIUM CHLORIDE 0.9% 1,000 ML IV SCH ×3 (07:50→18:18)
[2022-06-13] MEDS ORDERED: IV FLUID CONTINUATION 1,000 ML IV ONE ×2 (08:56)
[2022-06-13] MEDS ORDERED: BUPIVACAIN-EPI 0.25%-1:200,000 30 ML VIAL SQ ONE (09:10)
--- NOTE | 2022-06-13 09:19 | P.OP ---
Date of Procedure: 06/13/22 Preoperative Diagnosis: Adenocarcinoma GE junction, dysphagia, protein calorie malnutrition Postoperative Diagnosis: Adenocarcinoma GE junction, protein calorie malnutrition, dysphasia Procedure(s) Performed: PEG tube placement Anesthesia: MAC Surgeon: Lily Foster Estimated Blood Loss (ml): 2 Pathology: none sent Condition: stable Disposition: PACU Description of Procedure: The patient's taken to the endoscopy suite were gastroscope is passed per mouth into the stomach. The tumor is noted at the GE junction but I am able to easily traversed pass this. The stomach is insufflated and palpated no site for placement was chosen. The abdomen was prepped with ChloraPrep. Local anesthetic was instilled in the skin and abdominal wall. A skin lizandro was made. An introducer needle was placed into the stomach. A guidewire was then placed through the needle and grasped with a polypectomy snare. The endoscope and guidewire are removed per mouth. A Ponsky pull PEG tube is attached to the guidewire and this is placed on traction and brought through the abdominal wall. The tube was then trimmed to size and the appropriate adapters were placed. The endoscope was reinserted and the márquez was noted to seat against the gastric wall with no bleeding. He tolerated the procedure without difficulty and is taken to recovery room in satisfactory condition.
[2022-06-13 10:52] LABS: Anisocytosis Slight; Basophils % (A) 0 %; Eosinophils # (A) 0.1 k/uL (0-0.7); Eosinophils % (A) 1 %; HCT 22.3 % (39.0-53.0); Hypochromasia Marked; Lymphocytes # (A) 1.1 k/uL (1.0-4.8); Lymphocytes % (A) 8 %; MCH 27.5 pg (25.0-35.0); MCHC 31.1 g/dL (31.0-37.0); MCV 88.5 fL (80.0-100.0); Mean Platelet Volume 8.1; Monocytes # (A) 0.9 k/uL (0-1.0); Monocytes % (A) 7 %; Neutrophils # (A) 11.2 k/uL (1.3-7.7); Neutrophils % (A) 83 %; Platelet Count 327 k/uL (150-450); RBC 2.52 m/uL (4.30-5.90); RDW 18.9 % (11.5-15.5); WBC 13.5 k/uL (3.8-10.6)
[2022-06-13 10:56] LABS: HGB 6.9 gm/dL (13.0-17.5)
[2022-06-13 11:05] LABS: ALT 11 U/L (4-49); African American GFR (CKD) >90 (>60 ml/min/1.73 sqM); Albumin 2.5 g/dL (3.5-5.0); Anion Gap 9 mmol/L; Blood Urea Nitrogen 8 mg/dL (9-20); Calcium 7.9 mg/dL (8.4-10.2); Carbon Dioxide 22 mmol/L (22-30); Chloride 102 mmol/L (98-107); Glucose 81 mg/dL (74-99); Non-African American GFR(CKD) >90 (>60 ml/min/1.73 sqM); Sodium 133 mmol/L (137-145); Total Bilirubin 0.7 mg/dL (0.2-1.3); Total Protein 5.4 g/dL (6.3-8.2)
[2022-06-13 11:07] LABS: AST 28 U/L (17-59); Alkaline Phosphatase 97 U/L (38-126); Potassium 3.9 mmol/L (3.5-5.1)
--- NOTE | 2022-06-13 11:13 | PN ---
PROGRESS NOTE CHIEF COMPLAINT: Abdominal pain with dysphagia. HISTORY OF PRESENT ILLNESS: This gentleman is doing about the same. Pain is under little bit better control with the Dilaudid. He is talking to people. PHYSICAL EXAMINATION: CHEST: Clear. ABDOMEN: Slightly distended, it is quite firm in the upper quadrant. IMPRESSION: Metastatic carcinoma of the distal esophagus. PLAN: Await treatment planning from Oncology and Radiation Therapy and then discharge to home care. MMODL / IJN: [id number] /
--- NOTE | 2022-06-13 20:33 | PN ---
PROGRESS NOTE CHIEF COMPLAINT: Upper abdominal pain. HISTORY OF PRESENT ILLNESS: This gentleman is having a lot of abdominal pain. He is having trouble swallowing his oral medications. His IV analgesic program will be increased. PHYSICAL EXAMINATION: CHEST: Clear. CARDIAC: Normal. ABDOMEN: Tender over the epigastrium. IMPRESSION: Esophageal carcinoma. PLAN: 1. Increase analgesics. 2. Await for treatment plan. He was told his course will be difficult and his prognosis is poor. MMODL / IJN: [id number] /
[2022-06-14] MEDS: SODIUM CHLORIDE 0.9% 1,000 ML IV SCH ×3 (00:01→16:56)
[2022-06-14] MEDS: HYDROmorphone 1 MG/ML 1 ML SYRINGE IVP PRN ×4 (03:35→21:45)
[2022-06-14] MEDS: polyethylene glycoL 3350 17 GM POWD.PACK PO SCH ×3 (07:31→21:46)
[2022-06-14] MEDS: PANTOPRAZOLE 40 MG/10 ML VIAL IV SCH (09:06)
--- NOTE | 2022-06-14 11:29 | P.PN ---
Subjective Progress Note Date: 06/13/22 Principal diagnosis: Adenocarcinoma GE junction, dysphagia, protein calorie malnutrition Status post PEG tube placement 56-year-old male to the emergency department for evaluation. Patient's well- known to our emergency department, patient presents today for evaluation of abdominal pain chest pain and vomiting blood. Patient is significantly nauseous. Patient does have chest pain and abdominal pain. Patient is not lightheaded dizzy or weak. 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; patient underwent PEG tube placement this morning; dietary consulted for recommendations on tube feedings Objective - Vital Signs Vital signs: Vital Signs Temp 98.9 F 06/13/22 11:58 Pulse 115 H 06/13/22 11:58 Resp 18 06/13/22 11:58 BP 115/77 06/13/22 11:58 Pulse Ox 98 06/13/22 11:58 FiO2 Intake & Output 06/12/22 06/13/22 06/13/22 18:59 06:59 18:59 Intake Total 1380 500 Balance 1380 500 Weight 68.039 kg Intake: IV 500 Intake, IV Titration 1200 Amount Sodium Chloride 0.9% 1, 1200 000 ml @ 130 mls/hr IV . Q7H42M [facility] Rx#:[id number] Oral 180 Other: Voiding Method Toilet Toilet Urinal Urinal - Exam General appearance: alert, in no apparent distress Head exam: Present: atraumatic, normocephalic, normal inspection Eye exam: Present: normal appearance, PERRL, EOMI. Absent: scleral icterus, conjunctival injection, periorbital swelling ENT exam: Present: normal exam, mucous membranes moist Neck exam: Present: normal inspection. Absent: tenderness, meningismus, lymphadenopathy Respiratory exam: Present: normal lung sounds bilaterally. Absent: respiratory distress, wheezes, rales, rhonchi, stridor Cardiovascular Exam: Present: normal rhythm, tachycardia, normal heart sounds. Absent: systolic murmur, diastolic murmur, rubs, gallop, clicks GI/Abdominal exam: Present: soft, normal bowel sounds. Absent: distended, tenderness, guarding, rebound, rigid Extremities exam: Present: normal inspection, full ROM, normal capillary refill. Absent: tenderness, pedal edema, joint swelling, calf tenderness Back exam: Present: normal inspection Neurological exam: Present: alert, oriented X3, CN II-XII intact - Labs CBC & Chem 7: 06/13/22 09:47 06/13/22 09:47 Labs: Abnormal Lab Results - Last 24 Hours (Table) 06/12/22 06/12/22 06/13/22 Range/Units 14:39 14:39 09:47 WBC 17.6 H 13.5 H (3.8-10.6) k/uL RBC 2.77 L 2.52 L (4.30-5.90) m/uL Hgb 7.7 L 6.9 L* (13.0-17.5) gm/dL Hct 24.2 L 22.3 L (39.0-53.0) % RDW 19.6 H 18.9 H (11.5-15.5) % Neutrophils # 15.2 H 11.2 H (1.3-7.7) k/uL Sodium 132 L (137-145) mmol/L Carbon Dioxide 21 L (22-30) mmol/L BUN (9-20) mg/dL Creatinine (0.66-1.25) mg/dL Calcium (8.4-10.2) mg/dL Total Protein 5.7 L (6.3-8.2) g/dL Albumin 2.7 L (3.5-5.0) g/dL 06/13/22 Range/Units 09:47 WBC (3.8-10.6) k/uL RBC (4.30-5.90) m/uL Hgb (13.0-17.5) gm/dL Hct (39.0-53.0) % RDW (11.5-15.5) % Neutrophils # (1.3-7.7) k/uL Sodium 133 L (137-145) mmol/L Carbon Dioxide (22-30) mmol/L BUN 8 L (9-20) mg/dL Creatinine 0.63 L (0.66-1.25) mg/dL Calcium 7.9 L (8.4-10.2) mg/dL Total Protein 5.4 L (6.3-8.2) g/dL Albumin 2.5 L (3.5-5.0) g/dL Assessment and Plan Assessment: 1. Abdominal pain/dysphagia - Related to adenocarcinoma of distal esophagus - Oncology and radiation oncology on board for further treatment likely postdischarge 2. Severe protein calorie malnutrition; related to dysphagia secondary to metas tatic carcinoma of distal esophagus - Patient has been evaluated by general surgery and underwent PEG tube placement; dietary service on board for recommendations 3. 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 NGS and PDL [address] revealed destructive bone lesions sacrum - Bone scan ordered 4. Chronic anemia; patient does have evidence of patient's; patient is status post 2 doses of IV iron supplement; we will continue to monitor CBC 5. COPD; not in exacerbation; continue with Symbicort inhaler; Singulair 10 mg daily; albuterol inhaler 4 times a day when necessary 6. Hypertension; hydralazine 10 mg twice a day; losartan 100 mg daily 7. BPH; Flomax 0.4 milligrams daily
[2022-06-14 11:57] LABS: ALT 13 U/L (4-49); AST 31 U/L (17-59); African American GFR (CKD) >90 (>60 ml/min/1.73 sqM); Albumin 2.7 g/dL (3.5-5.0); Alkaline Phosphatase 112 U/L (38-126); Anion Gap 11 mmol/L; Blood Urea Nitrogen 6 mg/dL (9-20); Calcium 8.3 mg/dL (8.4-10.2); Carbon Dioxide 23 mmol/L (22-30); Chloride 100 mmol/L (98-107); Glucose 95 mg/dL (74-99); Magnesium 1.8 mg/dL (1.6-2.3); Non-African American GFR(CKD) >90 (>60 ml/min/1.73 sqM); Potassium 3.7 mmol/L (3.5-5.1); Sodium 134 mmol/L (137-145); Total Bilirubin 1.2 mg/dL (0.2-1.3); Total Protein 5.9 g/dL (6.3-8.2)
[2022-06-14 12:11] LABS: Anisocytosis Slight; Basophils % (A) 0 %; Eosinophils # (A) 0.2 k/uL (0-0.7); Eosinophils % (A) 2 %; HCT 28.5 % (39.0-53.0); Hypochromasia Marked; Lymphocytes % (A) 8 %; MCH 28.2 pg (25.0-35.0); MCHC 31.8 g/dL (31.0-37.0); MCV 88.6 fL (80.0-100.0); Monocytes # (A) 0.7 k/uL (0-1.0); Monocytes % (A) 5 %; Neutrophils # (A) 10.3 k/uL (1.3-7.7); Neutrophils % (A) 83 %; Platelet Count 374 k/uL (150-450); Poikilocytosis Moderate; RBC 3.21 m/uL (4.30-5.90); RDW 18.2 % (11.5-15.5); WBC 12.3 k/uL (3.8-10.6)
[2022-06-14 12:21] LABS: HGB 9.1 gm/dL (13.0-17.5)
--- NOTE | 2022-06-14 12:51 | P.PN ---
Progress Note - Text Progress Note Date: 06/14/22 The patient is seen on rounds. Denies any abdominal pain. Tube feeding has just been started. Tube feeding to be slowly advanced to goal. I'll follow up as needed.
--- NOTE | 2022-06-14 16:38 | P.PN ---
Subjective Progress Note Date: 06/14/22 Principal diagnosis: Adenocarcinoma GE junction, dysphagia, protein calorie malnutrition Status post PEG tube placement 56-year-old male to the emergency department for evaluation. Patient's well- known to our emergency department, patient presents today for evaluation of abdominal pain chest pain and vomiting blood. Patient is significantly nauseous. Patient does have chest pain and abdominal pain. Patient is not lightheaded dizzy or weak. 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; patient underwent PEG tube placement this morning; dietary consulted for recommendations on tube feedings 06/14/2022 Patient is seen and evaluated sitting up in bedside chair; has been started on tube feedings Vital signs are reviewed and remained stable Lab review shows CBC of 12.3, hemoglobin improved to 9.1 from 6.9 yesterday after transfusion with 1 unit of packed RBCs, sodium of 134, potassium 3.7, BUN/creatinine of 6/0.63 Patient admitted for severe protein calorie malnutrition related to dysphagia related to adenocarcinoma at GE junction Dietary consulted for optimization of tube feeding Objective - Vital Signs Vital signs: Vital Signs Temp 98.8 F 06/14/22 09:26 Pulse 90 06/14/22 09:26 Resp 16 06/14/22 09:26 BP 121/78 06/14/22 09:26 Pulse Ox 96 06/14/22 09:26 FiO2 Intake & Output 06/13/22 06/14/22 06/14/22 18:59 06:59 18:59 Intake Total 500 1510 Balance 500 1510 Weight 73.5 kg Intake: IV 500 Intake, IV Titration 1200 Amount Sodium Chloride 0.9% 1, 1200 000 ml @ 130 mls/hr IV . Q7H42M [facility] Rx#:[id number] Blood Product 0 310 Rc As-1 Unit 0 310 [id number] Other: Voiding Method Toilet Toilet Toilet Urinal Urinal Urinal # Voids 2 # Bowel Movements 0 - Exam General appearance: alert, in no apparent distress Head exam: Present: atraumatic, normocephalic, normal inspection Eye exam: Present: normal appearance, PERRL, EOMI. Absent: scleral icterus, conjunctival injection, periorbital swelling ENT exam: Present: normal exam, mucous membranes moist Neck exam: Present: normal inspection. Absent: tenderness, meningismus, lymphadenopathy Respiratory exam: Present: normal lung sounds bilaterally. Absent: respiratory distress, wheezes, rales, rhonchi, stridor Cardiovascular Exam: Present: normal rhythm, tachycardia, normal heart sounds. Absent: systolic murmur, diastolic murmur, rubs, gallop, clicks GI/Abdominal exam: Present: soft, normal bowel sounds. Absent: distended, tenderness, guarding, rebound, rigid Extremities exam: Present: normal inspection, full ROM, normal capillary refill. Absent: tenderness, pedal edema, joint swelling, calf tenderness Back exam: Present: normal inspection Neurological exam: Present: alert, oriented X3, CN II-XII intact - Labs CBC & Chem 7: 06/14/22 11:21 06/14/22 11:21 Labs: Abnormal Lab Results - Last 24 Hours (Table) 06/13/22 Range/Units 15:43 Crossmatch See Detail Assessment and Plan Assessment: 1. Abdominal pain/dysphagia - Related to adenocarcinoma of distal esophagus - Oncology and radiation oncology on board for further treatment likely postdischarge 2. Severe protein calorie malnutrition; related to dysphagia secondary to metastatic carcinoma of distal esophagus - Patient has been evaluated by general surgery and underwent PEG tube placement ; dietary service on board for recommendations 3. 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 NGS and PDL [address] revealed destructive bone lesions sacrum - Bone scan ordered 4. Chronic anemia; patient does have evidence of patient's; patient is status post 2 doses of IV iron supplement; we will continue to monitor CBC 5. COPD; not in exacerbation; continue with Symbicort inhaler; Singulair 10 mg daily; albuterol inhaler 4 times a day when necessary 6. Hypertension; hydralazine 10 mg twice a day; losartan 100 mg daily 7. BPH; Flomax 0.4 milligrams daily
[2022-06-15] MEDS: HYDROmorphone 1 MG/ML 1 ML SYRINGE IVP PRN ×5 (02:51→21:58)
[2022-06-15] MEDS: SODIUM CHLORIDE 0.9% 1,000 ML IV SCH ×3 (02:51→14:19)
[2022-06-15] MEDS: PANTOPRAZOLE 40 MG/10 ML VIAL IV SCH (10:14)
[2022-06-15] MEDS: ONDANSETRON 4 MG/2 ML VIAL IVP PRN (10:14)
[2022-06-15] MEDS: polyethylene glycoL 3350 17 GM POWD.PACK PO SCH ×3 (10:16→14:43)
--- NOTE | 2022-06-15 14:14 | P.PN ---
Subjective 56-year-old male to the emergency department for evaluation. Patient's well- known to our emergency department, patient presents today for evaluation of abdominal pain chest pain and vomiting blood. Patient is significantly nauseous. Patient does have chest pain and abdominal pain. Patient is not lightheaded dizzy or weak. 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; patient underwent PEG tube placement this morning; dietary consulted for recommendations on tube feedings 06/14/2022 Patient is seen and evaluated sitting up in bedside chair; has been started on tube feedings Vital signs are reviewed and remained stable Lab review shows CBC of 12.3, hemoglobin improved to 9.1 from 6.9 yesterday after transfusion with 1 unit of packed RBCs, sodium of 134, potassium 3.7, BUN/creatinine of 6/0.63 Patient admitted for severe protein calorie malnutrition related to dysphagia 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 Patient complaining of from stomach pain about 8/10, patient with no vomiting or diarrhea. He had low-grade fever of 99.8 We are going to start the patient empirically on Unasyn antibiotic for possible intra-abdominal infection. We will check a pro-calcitonin and labs tomorrow. Oncology team also on the case for possible metastatic disease to the sacral bone with bone scan is ordered showing increased uptake in the right sacroiliac joint and left femoral greater trochanter as well as 11th rib, T2 and L sacral. Objective - Vital Signs Vital signs: Vital Signs Temp 98.2 F 06/15/22 08:00 Pulse 93 06/15/22 08:00 Resp 18 06/15/22 08:00 BP 119/70 06/15/22 08:00 Pulse Ox 96 06/15/22 08:00 FiO2 Intake & Output 06/14/22 06/15/22 06/15/22 18:59 06:59 18:59 Intake Total 1280 160 Output Total 400 Balance 880 160 Weight 73.5 kg 75 kg Intake: Intake, IV Titration 1200 Amount Sodium Chloride 0.9% 1, 1200 000 ml @ 130 mls/hr IV . Q7H42M [facility] Rx#:[id number] Oral 0 Tube Feeding 80 160 Output: Urine 400 Other: Voiding Method Toilet Toilet Urinal Urinal # Voids 1 - Exam GENERAL: The patient is alert and oriented x3, not in any acute distress. Well developed, well nourished. HEENT: Pupils are round and equally reacting to light. EOMI. No scleral icterus. No conjunctival pallor. Normocephalic, atraumatic. No pharyngeal erythema. No thyromegaly. CARDIOVASCULAR: S1 and S2 present. No murmurs, rubs, or gallops. PULMONARY: Chest is clear to auscultation, no wheezing or crackles. -ABDOMEN: Soft, epigastric tenderness , no rebound tenderness,, nondistended, normoactive bowel sounds. No palpable organomegaly. MUSCULOSKELETAL: No joint swelling or deformity. EXTREMITIES: No cyanosis, clubbing, or pedal edema. NEUROLOGICAL: Gross neurological examination did not reveal any focal deficits. SKIN: No rashes. no petechiae. - Labs CBC & Chem 7: 06/14/22 11:21 06/14/22 11:21 Labs: Abnormal Lab Results - Last 24 Hours (Table) 06/14/22 06/14/22 Range/Units 11:21 11:21 WBC 12.3 H (3.8-10.6) k/uL RBC 3.21 L (4.30-5.90) m/uL Hgb 9.1 L D (13.0-17.5) gm/dL Hct 28.5 L (39.0-53.0) % RDW 18.2 H (11.5-15.5) % Neutrophils # 10.3 H (1.3-7.7) k/uL Sodium 134 L (137-145) mmol/L BUN 6 L (9-20) mg/dL Creatinine 0.63 L (0.66-1.25) mg/dL Calcium 8.3 L (8.4-10.2) mg/dL Total Protein 5.9 L (6.3-8.2) g/dL Albumin 2.7 L (3.5-5.0) g/dL Assessment and Plan Assessment: 1. Abdominal pain/dysphagia - Related to adenocarcinoma of distal esophagus - Oncology and radiation oncology on board for further treatment likely postdischarge -Start patient on Unasyn empirically for fever and pain 2. Severe protein calorie malnutrition; related to dysphagia secondary to metastatic carcinoma of distal esophagus - Patient has been evaluated by general surgery and underwent PEG tube placement; continue with tube feeding 3. 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 NGS and PDL [address]. - CT revealed destructive bone lesions sacrum - Bone scan: Multiple metastasis suspected on the right sacroiliac joint, left femur, 11th rib, T12 and the sacrum - Oncology team on the case 4. Chronic anemia; patient does have evidence of patient's; patient is status post 2 doses of IV iron supplement; we will continue to monitor CBC 5. COPD; not in exacerbation; continue with Symbicort inhaler; Singulair 10 mg daily; albuterol inhaler 4 times a day when necessary 6. Hypertension; hydralazine 10 mg twice a day; losartan 100 mg daily 7. BPH; Flomax 0.4 milligrams daily GI prophylaxis no anticoagulation for his significant anemia and possible GI bleed GI prophylaxis: Protonix Dr ayon will resume the care of the patient tomorrow
[2022-06-15] MEDS: AMPICILLIN-SULBACTAM 3 GM in SODIUM CHLORIDE 0.9% 100 ML IVPB SCH (14:20)
[2022-06-15 16:15] LABS: Anisocytosis Slight; Basophils % (A) 0 %; Eosinophils # (A) 0.3 k/uL (0-0.7); Eosinophils % (A) 3 %; HCT 24.6 % (39.0-53.0); HGB 7.7 gm/dL (13.0-17.5); Hypochromasia Marked; Lymphocytes # (A) 0.8 k/uL (1.0-4.8); Lymphocytes % (A) 9 %; MCH 27.5 pg (25.0-35.0); MCHC 31.4 g/dL (31.0-37.0); MCV 87.5 fL (80.0-100.0); Mean Platelet Volume 7.4; Monocytes # (A) 0.6 k/uL (0-1.0); Monocytes % (A) 6 %; Neutrophils # (A) 7.8 k/uL (1.3-7.7); Neutrophils % (A) 81 %; Platelet Count 393 k/uL (150-450); Poikilocytosis Moderate; RBC 2.81 m/uL (4.30-5.90); RDW 18.2 % (11.5-15.5); WBC 9.7 k/uL (3.8-10.6)
[2022-06-15 16:19] LABS: ALT 13 U/L (4-49); AST 24 U/L (17-59); African American GFR (CKD) >90 (>60 ml/min/1.73 sqM); Albumin 2.3 g/dL (3.5-5.0); Alkaline Phosphatase 109 U/L (38-126); Anion Gap 7 mmol/L; Blood Urea Nitrogen 8 mg/dL (9-20); Calcium 7.9 mg/dL (8.4-10.2); Carbon Dioxide 25 mmol/L (22-30); Chloride 102 mmol/L (98-107); Glucose 119 mg/dL (74-99); Magnesium 1.7 mg/dL (1.6-2.3); Non-African American GFR(CKD) >90 (>60 ml/min/1.73 sqM); Potassium 3.5 mmol/L (3.5-5.1); Sodium 134 mmol/L (137-145); Total Bilirubin 0.3 mg/dL (0.2-1.3); Total Protein 5.4 g/dL (6.3-8.2)
[2022-06-15] MEDS ORDERED: HYDROmorphone 1 MG/ML 1 ML SYRINGE IVP STA (18:16)
[2022-06-15 18:52] LABS: Anisocytosis Slight; HCT 26.5 % (39.0-53.0); HGB 8.1 gm/dL (13.0-17.5); Hypochromasia Marked; MCHC 30.7 g/dL (31.0-37.0); MCV 87.8 fL (80.0-100.0); Mean Platelet Volume 7.4; Platelet Count 339 k/uL (150-450); Poikilocytosis Slight; RBC 3.02 m/uL (4.30-5.90); RDW 17.8 % (11.5-15.5); WBC 10.4 k/uL (3.8-10.6)
--- NOTE | 2022-06-15 19:23 | CT ---
EXAMINATION TYPE: CT abdomen pelvis wo con DATE OF EXAM: 06/15/2022 COMPARISON: CT scan 06/10/2022 HISTORY: GI BLEED, increase pain CT DLP: 637 mGycm Automated exposure control for dose reduction was used. Images obtained from the diaphragm to the floor the pelvis with no contrast. There are [id number] bilateral pleural effusions. Heart size is top normal. No pericardial effu yuval. There is infiltrate and atelectasis at both lung bases. There is a 7 cm low-density mass in the right lobe of the liver. There is a central posterior annular ring density. There is a 3 cm hypodensity in the inferior lateral right lobe of the liver. There is poorly marginated 2.5 cm hypodensity in the inferior right lobe of the liver. Spleen is intact. There is some wall thickening of the gastric fundus extending into the distal esophagus. No pancreatic mas s. There is gastrostomy tube noted. There is no adrenal mass. Kidneys have normal size and contour. No hydronephrosis. There is 4 cm tita ical cyst posterior left kidney. No retroperitoneal adenopathy. Bladder distends smoothly. There is e nlarged prostate that measures 6.5 cm. No inguinal hernia. There is small amount of low-density fluid in the pelvis. There is no ascites or free air. No sign of a bowel obstruction. The lumbar spine is intact. No compression fracture. The bony pelvis is intact. There is a destructive lesion involving t he posterior left 11th rib with soft tissue mass that measures 2.5 cm in thickness. There is a 2.5 cm osteolytic focus in the right side of the sacrum. There is subcutaneous edema around the lower abdom en posteriorly. IMPRESSION: There are bilateral pleural effusions with basilar atelectasis and infiltrate which appear new compar ed to recent exam. There is wall thickening at the gastric fundus and gastroesophageal junction consistent with tumor. U nchanged. Destructive lesion left 11th rib, right side of the sacrum consistent with metastatic disease. Multip le hepatic lesions consistent with metastatic disease. There is small amount of low-density free fluid in the pelvis similar to last exam.
[2022-06-15] MEDS ORDERED: bisacodyL 10 MG SUPP RECTAL STA (19:41)
[2022-06-15 20:24] LABS: Anisocytosis Slight; HCT 23.6 % (39.0-53.0); HGB 7.2 gm/dL (13.0-17.5); Hypochromasia Marked; MCH 26.3 pg (25.0-35.0); MCHC 30.4 g/dL (31.0-37.0); MCV 86.7 fL (80.0-100.0); Mean Platelet Volume 7.3; Platelet Count 363 k/uL (150-450); Poikilocytosis Slight; RBC 2.72 m/uL (4.30-5.90); RDW 17.7 % (11.5-15.5); WBC 9.1 k/uL (3.8-10.6)
[2022-06-16] MEDS: polyethylene glycoL 3350 17 GM POWD.PACK PO SCH ×4 (00:16→22:10)
[2022-06-16 01:59] LABS: Anisocytosis Slight; HCT 24.5 % (39.0-53.0); HGB 7.8 gm/dL (13.0-17.5); Hypochromasia Marked; MCH 27.7 pg (25.0-35.0); MCHC 31.8 g/dL (31.0-37.0); MCV 86.9 fL (80.0-100.0); Mean Platelet Volume 8.8; Platelet Count 387 k/uL (150-450); Poikilocytosis Moderate; RBC 2.82 m/uL (4.30-5.90); WBC 11.3 k/uL (3.8-10.6)
[2022-06-16] MEDS: AMPICILLIN-SULBACTAM 3 GM in SODIUM CHLORIDE 0.9% 100 ML IVPB SCH ×5 (02:39→23:11)
[2022-06-16] MEDS: HYDROmorphone 1 MG/ML 1 ML SYRINGE IVP PRN ×4 (03:42→20:27)
[2022-06-16] MEDS: SODIUM CHLORIDE 0.9% 1,000 ML IV SCH ×4 (04:39→23:11)
[2022-06-16 05:35] LABS: Anisocytosis Slight; HCT 24.5 % (39.0-53.0); HGB 7.5 gm/dL (13.0-17.5); Hypochromasia Marked; MCH 27.4 pg (25.0-35.0); MCHC 30.6 g/dL (31.0-37.0); MCV 89.5 fL (80.0-100.0); Mean Platelet Volume 7.3; Platelet Count 309 k/uL (150-450); Poikilocytosis Slight; RBC 2.74 m/uL (4.30-5.90); RDW 17.5 % (11.5-15.5); WBC 8.7 k/uL (3.8-10.6)
[2022-06-16] MEDS: PANTOPRAZOLE 40 MG/10 ML VIAL IV SCH ×2 (08:54→10:39)
[2022-06-16 09:38] LABS: Anisocytosis Slight; HCT 26.1 % (39.0-53.0); HGB 8.1 gm/dL (13.0-17.5); Hypochromasia Marked; MCH 27.2 pg (25.0-35.0); MCV 87.8 fL (80.0-100.0); Mean Platelet Volume 7.6; Platelet Count 346 k/uL (150-450); Poikilocytosis Slight; RBC 2.97 m/uL (4.30-5.90); RDW 17.4 % (11.5-15.5); WBC 9.1 k/uL (3.8-10.6)
[2022-06-16] MEDS: SENNOSIDES-DOCUSATE SODIUM 1 EACH TAB PO SCH (10:34)
[2022-06-16] MEDS ORDERED: IPRATROPIUM-ALBUTEROL 3 ML NEB INHALATION PRN (20:05)
--- NOTE | 2022-06-16 21:30 | P.PN ---
Subjective Progress Note Date: 06/16/22 Principal diagnosis: Metastatic esophageal cancer -Had PEG tube placed on 06/13/22 -Reported to have bleeding from around PEG tube site over past 24 hours, which has since resolved -Received 1 unit of pRBCs this morning -Reports having leakage around PEG tube with tube feedings -He is not having any hematemesis, melena, hematochezia, or BRBPR Objective - Vital Signs Vital signs: Vital Signs Temp 98.4 F 06/16/22 19:38 Pulse 76 06/16/22 20:47 Resp 18 06/16/22 20:47 BP 126/78 06/16/22 19:38 Pulse Ox 94 L 06/16/22 19:38 FiO2 Intake & Output 06/16/22 06/16/22 06/17/22 06:59 18:59 06:59 Intake Total 2242 Balance 2242 Intake: Intake, IV Titration 1660 Amount Ampicillin-Sulbactam 3 gm 100 In Sodium Chloride 0.9% 100 ml @ 200 mls/hr IVPB Q6H [facility] Rx#:[id number] Sodium Chloride 0.9% 1, 1560 000 ml @ 130 mls/hr IV . Q7H42M [facility] Rx#:[id number] Blood Product 582 Rc Pheresis As-3 Unit 291 [id number] Other: Voiding Method Toilet Toilet Urinal # Voids 1 - Constitutional General appearance: Present: average body habitus, no acute distress - EENT Eyes: Present: EOMI - Respiratory Respiratory: bilateral: CTA - Cardiovascular Rhythm: regular - Gastrointestinal Gastrointestinal Comment(s): PEG tube site c/d/i with mild tenderness. No erythema or discharge currently around site General gastrointestinal: Present: distended, normal bowel sounds - Integumentary Integumentary: Present: normal - Neurologic Neurologic: Present: CNII-XII intact. Absent: focal deficits - Psychiatric Psychiatric: Present: appropriate affect - Labs CBC & Chem 7: 06/16/22 09:06 06/15/22 15:40 Labs: Abnormal Lab Results - Last 24 Hours (Table) 06/13/22 06/16/22 06/16/22 Range/Units 15:43 00:44 05:15 WBC 11.3 H (3.8-10.6) k/uL RBC 2.82 L 2.74 L (4.30-5.90) m/uL Hgb 7.8 L 7.5 L (13.0-17.5) gm/dL Hct 24.5 L 24.5 L (39.0-53.0) % MCHC 30.6 L (31.0-37.0) g/dL RDW 18.0 H 17.5 H (11.5-15.5) % Crossmatch See Detail 06/16/22 Range/Units 09:06 WBC (3.8-10.6) k/uL RBC 2.97 L (4.30-5.90) m/uL Hgb 8.1 L (13.0-17.5) gm/dL Hct 26.1 L (39.0-53.0) % MCHC (31.0-37.0) g/dL RDW 17.4 H (11.5-15.5) % Crossmatch Assessment and Plan Assessment: Mr. Jovel is a 56 year old gentleman with recently diagnosed metastatic esop hageal adenocarcinoma yet to start treatment who presented with acute anemia secondary to GI bleed, which has since resolved. He is now s/p PEG tube placement on 06/13/22. Plan: #GI bleeding -Required 3 units pRBCs on admission with appropriate response -He has not any further bleeding since initial presentation -Unclear if he bleeding from esophageal mass or from other part of GI tract -Continue to monitor Hgb daily, transfuse for Hgb < 7 #Metastatic esophageal adenocarcinoma -Noted to have metastases to right rib along with retroperitoneal lymphadenopathy -He had PEG tube placed on 06/13/22 -Agree with initiating tube feedings and advancing until goal -NGS and PD-L1 testing from original biopsy of esophageal mass has been sent and is pending -He should have CT chest prior to discharge to complete staging workup for assessment of disease burden prior to starting systemic treatment outpatient
[2022-06-16] MEDS ORDERED: MAGNESIUM HYDROXIDE 2,400 MG/10 ML CUP PO ONE (21:52)
[2022-06-16] MEDS: MELATONIN 3 MG TABLET PO SCH (23:10)
[2022-06-17] MEDS: HYDROmorphone 1 MG/ML 1 ML SYRINGE IVP PRN ×4 (02:31→21:08)
[2022-06-17] MEDS: ONDANSETRON 4 MG/2 ML VIAL IVP PRN ×2 (02:44→08:10)
[2022-06-17] MEDS: AMPICILLIN-SULBACTAM 3 GM in SODIUM CHLORIDE 0.9% 100 ML IVPB SCH ×5 (05:15→22:14)
[2022-06-17] MEDS: SODIUM CHLORIDE 0.9% 1,000 ML IV SCH ×2 (06:03→14:30)
[2022-06-17] MEDS: PANTOPRAZOLE 40 MG/10 ML VIAL IV SCH (07:59)
[2022-06-17] MEDS: polyethylene glycoL 3350 17 GM POWD.PACK PO SCH ×3 (08:00→21:08)
[2022-06-17] MEDS: SENNOSIDES-DOCUSATE SODIUM 1 EACH TAB PO SCH (08:00)
[2022-06-17] MEDS: IPRATROPIUM-ALBUTEROL 3 ML NEB INHALATION SCH ×3 (08:23→19:58)
--- NOTE | 2022-06-17 08:37 | PN ---
PROGRESS NOTE SUBJECTIVE: The patient is seen on rounds. He is having less abdominal discomfort today. A little tenderness around the PEG tube site. No nausea or vomiting. He was given Dulcolax suppositories yesterday in addition to his MiraLAX and senna and has still not had a bowel movement for greater than a week. PHYSICAL EXAMINATION: VITAL SIGNS: Stable. He is afebrile. ABDOMEN: Softly distended. Positive bowel sounds. A PEG tube site is unremarkable. ASSESSMENT: Status post PEG tube placement for adenocarcinoma at the gastroesophageal junction, blood loss anemia due to cancer, constipation. PLAN: The tube feedings will be re-initiated. Monitor H and H and transfuse as needed. I explained to the patient the bleeding will likely occur sporadically until he starts his chemotherapy. We will give him 1/2 bottle of magnesium citrate to stimulate bowel function. Currently nonsurgical. MMBLADEL / WALDEMARN: [id number] /
[2022-06-17] MEDS ORDERED: MAGNESIUM HYDROXIDE 2,400 MG/10 ML CUP PO ONE (09:00)
--- NOTE | 2022-06-17 09:37 | PN ---
PROGRESS NOTE CHIEF COMPLAINT: Carcinoma in the esophagus. HISTORY OF PRESENT ILLNESS: This gentleman's pain is under a little bit better control. We are looking to get him discharged soon. He has been evaluated by Palliative Care and we will determine how all of his other care can be managed as an outpatient. PEG tube is in place now. PHYSICAL EXAMINATION: ABDOMEN: PEG tube is in place and the dressing is dry. CHEST: Clear. CARDIAC: Normal. IMPRESSION: Carcinoma of the esophagus with metastases. PLAN: Home once arrangements can be made and he is doing well with his PEG tube. MMODL / IJN: [id number] /
--- NOTE | 2022-06-17 10:07 | P.PN ---
Subjective Progress Note Date: 06/16/22 Principal diagnosis: GIB The patient is a 56-year-old man who presented to the emergency department on 06/09/22 with complaints of abdominal pain and vomiting blood. Patient is significantly nauseous. Patient does have chest pain and abdominal pain. Patient is not lightheaded dizzy or weak. Patient has no prior history of bleeding from his stomach. He was admitted approximately 2 weeks ago with left abdominal pain, radiating through to the back, constipation for about 3-4 weeks, dysphagia and weight loss as he had not been able to eat. He was seen by his PCP Dr. Fine who sent him for a CT scan. CT AP showed esophageal wall thickening extending into the gastric cardia, expansile soft tissue lesion into 11th rib, retroperitoneal lymphadenopathy and other osseous lesions. Diffuse gallbladder thickening. Patient was scheduled to see gastroenterology but, he ended up inpatient. He was seen by Dr. Foster. He had an EGD 05/28/22, mass, found, biopsy positive for adenocarcinoma. Patient was scheduled to see the Medical Oncologist on 06/10/22 for biopsy results and plan of care. He is status post 2 units of blood for a hemoglobin of 6.3 on admit. His hemoglobin is now 8.2. 06/12 The patient is resting in bed and appears to be uncomfortable. RN notified that patient would like pain medication. Education provided regarding palliative care philosophies and services. The patient states he has just been diagnosed with esophageal cancer on 05/28/22. He had an appointment with his oncologist scheduled for 06/10 to discuss biopsy results and plan of care. He met with the oncology team here. They ordered an abdominal/pelvis CT to complete staging. He states that the scan was done, but no one discussed the results with him. The patient states his goal is prolonged survival. He is interested in finding out what his treatment option are. During this assessment, his PCP stopped in to examine the patient. He mentioned that the patient needs a feeding tube placed. He stated general surgery has already been consulted. The patient admits to having trouble swallowing solid food, but has never had a swallow eval. 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 Dietary consulted for recommendations on tube feedings. Objective - Vital Signs Vital signs: Vital Signs Temp 98.5 F 06/17/22 08:03 Pulse 100 06/17/22 08:41 Resp 16 06/17/22 08:03 BP 124/76 06/17/22 08:03 Pulse Ox 95 06/17/22 04:00 FiO2 Intake & Output 06/16/22 06/17/22 06/17/22 18:59 06:59 18:59 Other: Voiding Method Toilet # Voids 1 3 - Exam General: Well developed, well nourished. No acute distress. Chronically ill appearing HEENT: Head is atraumatic, normocephalic. Sclerae are clear. Pupils equal, round and reactive to light bilaterally. Mucus membranes moist. CV: Heart regular in rate and rhythm positive S1 and S2. No clicks, rubs or murmurs. Peripheral pulses equal. 2/4 Lungs: Clear to auscultation bilaterally. No wheezes rales or rhonchi. Respirations even and nonlabored. on RA Abdomen/GI: Soft. Bowel sounds present in all 4 quadrants.No guarding, or rigidity. + RUQ abdominal tenderness. PEG tube in place Musculoskeletal/ Extremities: WALL, no joint deformity or swelling. No gross atrophy. + generalized weakness Vascular: Radial pulses equal. 2/4. No peripheral edema Skin: Warm and dry, No rash or lesions. Neurologic: Awake, alert and oriented times 3. CN II-XII grossly intact. No focal deficits. Psychiatric: Appropriate mood and affect. - Labs CBC & Chem 7: 06/16/22 09:06 06/15/22 15:40 Assessment and Plan Assessment: Symptoms * Pain - "improved" 4/10 abdominal pain, Continue [place] and Dilaudid prn * Fatigue - + generalized weakness and fatigue, continue iron infusions, monitor Hgb closely and transfuse as needed * SOB - No, on RA * Insomnia - + trouble sleeping, continue Melatonin * N/V - Occasional nausea, continue Zofran * Anxiety - No * Depression - No * Confusion - No * Agitation - No * Hallucinations - No * Appetite/weight loss - + appetite loss and recent weight loss. PEG tube in place with tube feedings, appreciate awning maker recommendations for advancing tube feedings * Dysphagia - + dysphagia 2/2 esopogeal mass * Constipation - + constipation, does not remember when his LBM was. Continue Miralax, Senokot-S added * Incontinence - No * Itch - No Plan: Summary/Goals - The patient is resting in bed. He states he is still having abdominal pain, but it has improved. He states he does get relief with the [place] and Dilaudid. His goal remains to be discharged home and to start treatment for his cancer on an outpatient basis. He is waiting for oncology to discuss treatment options available. He is tolerating tube feeding well and denies any nausea or vomiting. Per oncology, NGS and PD-L1 testing from original biopsy of esophageal mass has been sent and is pending and he should have CT chest prior to discharge to complete staging workup for assessment of disease burden prior to starting systemic treatment outpatient. Recommendations - Discharge home, when cleared medically, with home health care and palliative care. Advanced Directives - No Code Status - Full Code Thank you for this consult Marianna Rain [facility] Palliative Care [facility] [id number] Email: [email or web address] Time with Patient: Less than 30
--- NOTE | 2022-06-17 11:21 | P.PN ---
Subjective 56-year-old male to the emergency department for evaluation. Patient's well- known to our emergency department, patient presents today for evaluation of abdominal pain chest pain and vomiting blood. Patient is significantly nauseous. Patient does have chest pain and abdominal pain. Patient is not lightheaded dizzy or weak. 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; patient underwent PEG tube placement this morning; dietary consulted for recommendations on tube feedings 06/14/2022 Patient is seen and evaluated sitting up in bedside chair; has been started on tube feedings Vital signs are reviewed and remained stable Lab review shows CBC of 12.3, hemoglobin improved to 9.1 from 6.9 yesterday after transfusion with 1 unit of packed RBCs, sodium of 134, potassium 3.7, BUN/creatinine of 6/0.63 Patient admitted for severe protein calorie malnutrition related to dysphagia 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 Patient complaining of from stomach pain about 8/10, patient with no vomiting or diarrhea. He had low-grade fever of 99.8 We are going to start the patient empirically on Unasyn antibiotic for possible intra-abdominal infection. We will check a pro-calcitonin and labs tomorrow. Oncology team also on the case for possible metastatic disease to the sacral bone with bone scan is ordered showing increased uptake in the right sacroiliac joint and left femoral greater trochanter as well as 11th rib, T2 and L sacral. 06/17/2022 Patient is still complaining from upper abdominal pain and tenderness, currently his pain is controlled with 2 milligram of Dilaudid every 3 hours. No significant flow vomiting but patient still has nausea. Also no more episodes of vomiting blood for now. Hemodynamically stable. No labs from today. We will check labs tomorrow. PEG tube in a Place, he wasn't 10 mL/h however because of his pain was going to hold it for today and check it tomorrow. He remains on Unasyn for possible intra-abdominal infection. Objective - Vital Signs Vital signs: Vital Signs Temp 98.5 F 06/17/22 08:03 Pulse 90 06/17/22 09:00 Resp 16 06/17/22 09:00 BP 124/76 06/17/22 08:03 Pulse Ox 95 06/17/22 04:00 FiO2 Intake & Output 06/16/22 06/17/22 06/17/22 18:59 06:59 18:59 Other: Voiding Method Toilet Toilet Urinal # Voids 1 3 - Exam GENERAL: The patient is alert and oriented x3, not in any acute distress. Well d eveloped, well nourished. HEENT: Pupils are round and equally reacting to light. EOMI. No sclera PULMONARY: Chest is clear to auscultation, no wheezing or crackles. -ABDOMEN: Soft, epigastric tenderness , no rebound tenderness,, nondistended, normoactive bowel sounds. No palpable organomegaly. MUSCULOSKELETAL: No joint swelling or deformity. EXTREMITIES: No cyanosis, clubbing, or pedal edema. NEUROLOGICAL: Gross neurological examination did not reveal any focal deficits. SKIN: No rashes. no petechiae. - Labs CBC & Chem 7: 06/16/22 09:06 06/15/22 15:40 Assessment and Plan Assessment: 1. 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 Severe protein calorie malnutrition; related to dysphagia secondary to me tastatic carcinoma of distal esophagus - Patient has been evaluated by general surgery and underwent PEG tube placement; continue with tube feeding (held on 06/17 for abdominal pain) 3. 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 NGS and PDL 1 pending. - CT revealed destructive bone lesions sacrum - Bone scan: Multiple metastasis suspected on the right sacroiliac joint, left femur, 11th rib, T12 and the sacrum - Oncology team on the case 4. Chronic anemia; patient does have evidence of patient's; patient is status post 2 doses of IV iron supplement; we will continue to monitor CBC - Monitor hemoglobin - Continue with normal saline 5. COPD; not in exacerbation; continue with Symbicort inhaler; Singulair 10 mg daily; albuterol inhaler 4 times a day when necessary 6. Hypertension; hydralazine 10 mg twice a day; losartan 100 mg daily 7. BPH; Flomax 0.4 milligrams daily GI prophylaxis no anticoagulation for his significant anemia and possible GI bleed GI prophylaxis: Protonix Dr ayon will resume the care of the patient tomorrow
[2022-06-17] MEDS ORDERED: bisacodyL 10 MG SUPP RECTAL PRN (11:41)
[2022-06-17 12:23] VITALS: BMI 25.9
[2022-06-17 12:32] LABS: Anisocytosis Slight; HCT 23.4 % (39.0-53.0); HGB 7.3 gm/dL (13.0-17.5); Hypochromasia Marked; MCH 27.5 pg (25.0-35.0); MCV 88.5 fL (80.0-100.0); Mean Platelet Volume 7.8; Platelet Count 287 k/uL (150-450); Poikilocytosis Slight; RBC 2.64 m/uL (4.30-5.90); RDW 17.7 % (11.5-15.5); WBC 8.6 k/uL (3.8-10.6)
--- NOTE | 2022-06-17 13:45 | P.PN ---
Subjective Progress Note Date: 06/17/22 Principal diagnosis: GIB The patient is a 56-year-old man who presented to the emergency department on 06/09/22 with complaints of abdominal pain and vomiting blood. Patient is significantly nauseous. Patient does have chest pain and abdominal pain. Patient is not lightheaded dizzy or weak. Patient has no prior history of bleeding from his stomach. He was admitted approximately 2 weeks ago with left abdominal pain, radiating through to the back, constipation for about 3-4 weeks, dysphagia and weight loss as he had not been able to eat. He was seen by his PCP Dr. Fine who sent him for a CT scan. CT AP showed esophageal wall thickening extending into the gastric cardia, expansile soft tissue lesion into 11th rib, retroperitoneal lymphadenopathy and other osseous lesions. Diffuse gallbladder thickening. Patient was scheduled to see gastroenterology but, he ended up inpatient. He was seen by Dr. Foster. He had an EGD 05/28/22, mass, found, biopsy positive for adenocarcinoma. Patient was scheduled to see the Medical Oncologist on 06/10/22 for biopsy results and plan of care. He is status post 2 units of blood for a hemoglobin of 6.3 on admit. His hemoglobin is now 8.2. 06/12 The patient is resting in bed and appears to be uncomfortable. RN notified that patient would like pain medication. Education provided regarding palliative care philosophies and services. The patient states he has just been diagnosed with esophageal cancer on 05/28/22. He had an appointment with his oncologist scheduled for 06/10 to discuss biopsy results and plan of care. He met with the oncology team here. They ordered an abdominal/pelvis CT to complete staging. He states that the scan was done, but no one discussed the results with him. The patient states his goal is prolonged survival. He is interested in finding out what his treatment option are. During this assessment, his PCP stopped in to examine the patient. He mentioned that the patient needs a feeding tube placed. He stated general surgery has already been consulted. The patient admits to having trouble swallowing solid food, but has never had a swallow eval. 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 Dietary consulted for recommendations on tube feedings. 06/16 The patient is resting in bed. He states he is still having abdominal pain, but it has improved. He states he does get relief with the [place] and Dilaudid. His goal remains to be discharged home and to start treatment for his cancer on an outpatient basis. He is waiting for oncology to discuss treatment options available. He is tolerating tube feeding well and denies any nausea or vomiting. Per oncology, NGS and PD-L1 testing from original biopsy of esophageal mass has been sent and is pending and he should have CT chest prior to discharge to complete staging workup for assessment of disease burden prior to starting systemic treatment outpatient. Objective - Vital Signs Vital signs: Vital Signs Temp 97.6 F 06/17/22 11:46 Pulse 92 06/17/22 12:37 Resp 20 06/17/22 11:46 BP 129/79 06/17/22 11:46 Pulse Ox 95 06/17/22 11:46 FiO2 Intake & Output 06/16/22 06/17/22 06/17/22 18:59 06:59 18:59 Weight 75 kg Other: Voiding Method Toilet Toilet Urinal # Voids 1 3 1 - Exam General: Well developed, well nourished. No acute distress. Chronically ill appearing HEENT: Head is atraumatic, normocephalic. Sclerae are clear. Pupils equal, round and reactive to light bilaterally. Mucus membranes moist. CV: Heart regular in rate and rhythm positive S1 and S2. No clicks, rubs or murmurs. Peripheral pulses equal. 2/4 Lungs: Clear to auscultation bilaterally. No wheezes rales or rhonchi. R espirations even and nonlabored. on RA Abdomen/GI: firm and distended. Bowel sounds present in all 4 quadrants.No guarding, or rigidity. + RUQ abdominal tenderness. PEG tube in place Musculoskeletal/ Extremities: WALL, no joint deformity or swelling. No gross atrophy. + generalized weakness Vascular: Radial pulses equal. 2/4. No peripheral edema Skin: Warm and dry, No rash or lesions. Neurologic: Awake, alert and oriented times 3. CN II-XII grossly intact. No focal deficits. Psychiatric: Appropriate mood and affect. - Labs CBC & Chem 7: 06/17/22 11:54 06/15/22 15:40 Labs: Abnormal Lab Results - Last 24 Hours (Table) 06/17/22 Range/Units 11:54 RBC 2.64 L (4.30-5.90) m/uL Hgb 7.3 L (13.0-17.5) gm/dL Hct 23.4 L (39.0-53.0) % RDW 17.7 H (11.5-15.5) % Assessment and Plan Assessment: Symptoms * Pain - 2/10 abdominal pain, Continue [place] and Dilaudid prn * Fatigue - + generalized weakness and fatigue, continue iron infusions, monitor Hgb closely and transfuse as needed * SOB - No, on RA * Insomnia - + trouble sleeping, continue Melatonin * N/V - Occasional nausea, continue Zofran * Anxiety - No * Depression - No * Confusion - No * Agitation - No * Hallucinations - No * Appetite/weight loss - + appetite loss and recent weight loss. PEG tube in place with tube feedings on hold secondary to abd pain and nausea yesterday evening. * Dysphagia - + dysphagia 2/2 esopogeal mass, recommend swallow eval * Constipation - + constipation, does not remember when his LBM was. Continue Miralax and Senokot-S. Dulcolax suppository ordered. * Incontinence - No * Itch - No Plan: Summary/Goals - The patient is awake and pleasant. He states he understands his diagnosis of esophageal cancer and that it is metastatic to his bone. He stated that Dr. Lock discussed the abd/pelvic CT scand with him and how he should have CT chest prior to discharge to complete staging workup for assessment of disease burden prior to starting systemic treatment outpatient. The patient stated that yesterday evening he had abdominal pain, was bloated and nauseas. His tube feeding placed on hold. He does not remember the last time he had a bowel movement, but thinks it was at least a week ago. Dulcolax suppository ordered. Recommendations - Discharge home, when cleared medically, with home health care and palliative care. Follow up with oncology. Advanced Directives - No Code Status - Full Code Thank you for this consult Marianna Rain [facility] Palliative Care [facility] [id number] Email: [email or web address] Time with Patient: Less than 30
[2022-06-17] MEDS: HYDROcodone/APAP 5-325MG 1 EACH TAB PO PRN (14:27)
--- NOTE | 2022-06-17 16:11 | P.PN ---
Subjective Progress Note Date: 06/17/22 The patient is seen on rounds. He wasn't tolerating tube feedings this morning so was discontinued. He still has not had a bowel movement. Prior computed tomography scan showed a lot of stool with contrast in the colon. Objective - Vital Signs Vital signs: Vital Signs Temp 97.6 F 06/17/22 11:46 Pulse 92 06/17/22 12:37 Resp 20 06/17/22 11:46 BP 129/79 06/17/22 11:46 Pulse Ox 95 06/17/22 11:46 FiO2 Intake & Output 06/16/22 06/17/22 06/17/22 18:59 06:59 18:59 Weight 75 kg Other: Voiding Method Toilet Toilet Urinal # Voids 1 3 1 - Constitutional General appearance: Present: cooperative - Gastrointestinal General gastrointestinal: Present: distended (Softly distended), normal bowel sounds - Labs CBC & Chem 7: 06/17/22 11:54 06/15/22 15:40 Labs: Abnormal Lab Results - Last 24 Hours (Table) 06/17/22 Range/Units 11:54 RBC 2.64 L (4.30-5.90) m/uL Hgb 7.3 L (13.0-17.5) gm/dL Hct 23.4 L (39.0-53.0) % RDW 17.7 H (11.5-15.5) % Assessment and Plan (1) Adenocarcinoma of gastroesophageal junction Current Visit: Yes Status: Acute Priority: High Code(s): C16.0 - MALIGNANT NEOPLASM OF CARDIA SNOMED Code(s): 000958366 (2) Anemia Current Visit: Yes Status: Acute Code(s): D64.9 - ANEMIA, UNSPECIFIED SNOMED Code(s): 221841356 (3) Obstipation Current Visit: Yes Status: Acute Code(s): K59.00 - CONSTIPATION, UNSPECIFIED SNOMED Code(s): 953690047 Plan: I feel the patient is not tolerating tube feedings due to the severe constipation. I ordered magnesium citrate yesterday however the hospital pharmacy does not have this in stock due to a shortage. The patient will be given a milk and molasses enema. The tube feeding formula lobe will be changed and they will try to restart it later this evening. Patient's currently nonsurgical. Hemoglobin is been stable. Bleeding is occurring intermittently from the tumor. It will likely persist until for chemotherapy starts
--- NOTE | 2022-06-17 16:30 | P.PN ---
Progress Note - Text Progress Note Date: 06/15/[address] Roy to evaluate the patient due to abdominal distention and pain with some blood from the PEG tube. Dr. roy ordered a computed tomography scan. I went in and evaluated the patient. He was slightly distended. The abdomen was otherwise unremarkable. The computed tomography scan didn't show any acute intra-abdominal process. There was a significant amount of stool in the colon with contrast. The bleeding was felt to be due to the tumor as it was bleeding prior to the PEG tube placement. The abdominal discomfort and distention is because these hasn't had a bowel movement and greater than 1 week. Orders were written for laxatives. We'll reevaluate him tomorrow.
[2022-06-17] MEDS: MELATONIN 3 MG TABLET PO SCH (21:09)
[2022-06-18] MEDS: HYDROmorphone 1 MG/ML 1 ML SYRINGE IVP PRN ×4 (02:19→18:46)
[2022-06-18] MEDS: AMPICILLIN-SULBACTAM 3 GM in SODIUM CHLORIDE 0.9% 100 ML IVPB SCH ×4 (04:39→21:20)
[2022-06-18] MEDS: ONDANSETRON 4 MG/2 ML VIAL IVP PRN (04:40)
[2022-06-18] MEDS: SODIUM CHLORIDE 0.9% 1,000 ML IV SCH ×2 (05:33→21:21)
[2022-06-18 07:26] LABS: Anisocytosis Slight; HCT 25.6 % (39.0-53.0); HGB 7.9 gm/dL (13.0-17.5); Hypochromasia Marked; MCH 27.6 pg (25.0-35.0); MCV 88.9 fL (80.0-100.0); Platelet Count 344 k/uL (150-450); Poikilocytosis Slight; RBC 2.88 m/uL (4.30-5.90); RDW 17.9 % (11.5-15.5); WBC 8.5 k/uL (3.8-10.6)
[2022-06-18] MEDS: IPRATROPIUM-ALBUTEROL 3 ML NEB INHALATION SCH ×3 (07:45→20:12)
[2022-06-18] MEDS: polyethylene glycoL 3350 17 GM POWD.PACK PO SCH ×3 (08:34→21:22)
[2022-06-18] MEDS: SENNOSIDES-DOCUSATE SODIUM 1 EACH TAB PO SCH (08:34)
[2022-06-18] MEDS: PANTOPRAZOLE 40 MG/10 ML VIAL IV SCH (08:34)
--- NOTE | 2022-06-18 08:59 | P.PN ---
Subjective Progress Note Date: 06/18/22 Patient is seen on rounds. He had a large bowel movement last night after enema. He had another 1 this morning. He is complaining of abdominal pain. No nausea or vomiting. He wants to try to eat some soft foods Objective - Vital Signs Vital signs: Vital Signs Temp 98.2 F 06/18/22 08:33 Pulse 79 06/18/22 08:33 Resp 18 06/18/22 08:33 BP 119/76 06/18/22 08:33 Pulse Ox 97 06/18/22 08:33 FiO2 Intake & Output 06/17/22 06/18/22 06/18/22 18:59 06:59 18:59 Weight 75 kg Other: Voiding Method Toilet Toilet Urinal Urinal # Voids 3 # Bowel Movements 1 - Constitutional Constitutional Comment(s): Anxious - Gastrointestinal General gastrointestinal: Present: normal bowel sounds, soft (Softly distended) - Labs CBC & Chem 7: 06/18/22 06:38 06/15/22 15:40 Labs: Abnormal Lab Results - Last 24 Hours (Table) 06/17/22 06/18/22 Range/Units 11:54 06:38 RBC 2.64 L 2.88 L (4.30-5.90) m/uL Hgb 7.3 L 7.9 L (13.0-17.5) gm/dL Hct 23.4 L 25.6 L (39.0-53.0) % RDW 17.7 H 17.9 H (11.5-15.5) % Assessment and Plan (1) Adenocarcinoma of gastroesophageal junction Current Visit: Yes Status: Acute Priority: High Code(s): C16.0 - MALIGNANT NEOPLASM OF CARDIA SNOMED Code(s): 690760426 (2) Anemia Current Visit: Yes Status: Acute Code(s): D64.9 - ANEMIA, UNSPECIFIED SNOMED Code(s): 582259106 (3) Obstipation Current Visit: Yes Status: Acute Code(s): K59.00 - CONSTIPATION, UNSPECIFIED SNOMED Code(s): 872319979 Plan: The obstipation has finally resolved. Continue something on a daily basis due to his ongoing need for narcotic pain medication. The patient's had significant difficulty with peripheral access. Multiple IVs have gone subcu and they are rodney ving trouble drawing blood. We discussed Thrasher placement as he will need IV access for chemotherapy. He is agreeable. I will see if Dr. Meraz can do this for him tomorrow.
--- NOTE | 2022-06-18 10:37 | P.PN ---
Subjective Progress Note Date: 06/18/22 Principal diagnosis: GIB The patient is a 56-year-old man who presented to the emergency department on 06/09/22 with complaints of abdominal pain and vomiting blood. Patient is significantly nauseous. Patient does have chest pain and abdominal pain. Patient is not lightheaded dizzy or weak. Patient has no prior history of bleeding from his stomach. He was admitted approximately 2 weeks ago with left abdominal pain, radiating through to the back, constipation for about 3-4 weeks, dysphagia and weight loss as he had not been able to eat. He was seen by his PCP Dr. Fine who sent him for a CT scan. CT AP showed esophageal wall thickening extending into the gastric cardia, expansile soft tissue lesion into 11th rib, retroperitoneal lymphadenopathy and other osseous lesions. Diffuse gallbladder thickening. Patient was scheduled to see gastroenterology but, he ended up inpatient. He was seen by Dr. Foster. He had an EGD 05/28/22, mass, found, biopsy positive for adenocarcinoma. Patient was scheduled to see the Medical Oncologist on 06/10/22 for biopsy results and plan of care. He is status post 2 units of blood for a hemoglobin of 6.3 on admit. His hemoglobin is now 8.2. 06/12 The patient is resting in bed and appears to be uncomfortable. RN notified that patient would like pain medication. Education provided regarding palliative care philosophies and services. The patient states he has just been diagnosed with esophageal cancer on 05/28/22. He had an appointment with his oncologist scheduled for 06/10 to discuss biopsy results and plan of care. He met with the oncology team here. They ordered an abdominal/pelvis CT to complete staging. He states that the scan was done, but no one discussed the results with him. The patient states his goal is prolonged survival. He is interested in finding out what his treatment option are. During this assessment, his PCP stopped in to examine the patient. He mentioned that the patient needs a feeding tube placed. He stated general surgery has already been consulted. The patient admits to having trouble swallowing solid food, but has never had a swallow eval. 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 Dietary consulted for recommendations on tube feedings. 06/16 The patient is resting in bed. He states he is still having abdominal pain, but it has improved. He states he does get relief with the [place] and Dilaudid. His goal remains to be discharged home and to start treatment for his cancer on an outpatient basis. He is waiting for oncology to discuss treatment options available. He is tolerating tube feeding well and denies any nausea or vomiting. Per oncology, NGS and PD-L1 testing from original biopsy of esophageal mass has been sent and is pending and he should have CT chest prior to discharge to complete staging workup for assessment of disease burden prior to starting systemic treatment outpatient. 06/17 The patient is awake and pleasant. He states he understands his diagnosis of esophageal cancer and that it is metastatic to his bone. He stated that Dr. Lock discussed the abd/pelvic CT scand with him and how he should have CT chest prior to discharge to complete staging workup for assessment of disease burden prior to starting systemic treatment outpatient. The patient stated that yesterday evening he had abdominal pain, was bloated and nauseous. His tube feeding placed on hold. He does not remember the last time he had a bowel movement, but thinks it was at least a week ago. Dulcolax suppository ordered. Objective - Vital Signs Vital signs: Vital Signs Temp 98.2 F 06/18/22 08:33 Pulse 79 06/18/22 08:33 Resp 18 06/18/22 08:33 BP 119/76 06/18/22 08:33 Pulse Ox 97 06/18/22 08:33 FiO2 Intake & Output 06/17/22 06/18/22 06/18/22 18:59 06:59 18:59 Weight 75 kg Other: Voiding Method Toilet Toilet Urinal Urinal # Voids 3 # Bowel Movements 1 - Exam General: Well developed, well nourished. No acute distress. Chronically ill appearing HEENT: Head is atraumatic, normocephalic. Sclerae are clear. Pupils equal, round and reactive to light bilaterally. Mucus membranes moist. CV: Heart regular in rate and rhythm positive S1 and S2. No clicks, rubs or murmurs. Peripheral pulses equal. 2/4 Lungs: Clear to auscultation bilaterally. No wheezes rales or rhonchi. Respirations even and nonlabored. on RA Abdomen/GI: soft and non-distended. Bowel sounds present in all 4 quadrants.No guarding, or rigidity. + RUQ abdominal tenderness. PEG tube in place Musculoskeletal/ Extremities: WALL, no joint deformity or swelling. No gross atrophy. + generalized weakness Vascular: Radial pulses equal. 2/4. No peripheral edema Skin: Warm and dry, No rash or lesions. Neurologic: Awake, alert and oriented times 3. CN II-XII grossly intact. No focal deficits. Psychiatric: Appropriate mood and affect. - Labs CBC & Chem 7: 06/18/22 06:38 06/15/22 15:40 Labs: Abnormal Lab Results - Last 24 Hours (Table) 06/17/22 06/18/22 Range/Units 11:54 06:38 RBC 2.64 L 2.88 L (4.30-5.90) m/uL Hgb 7.3 L 7.9 L (13.0-17.5) gm/dL Hct 23.4 L 25.6 L (39.0-53.0) % RDW 17.7 H 17.9 H (11.5-15.5) % Assessment and Plan Assessment: Symptoms * Pain - 0/10 abdominal pain, Continue [place] and Dilaudid prn * Fatigue - + generalized weakness and fatigue, continue iron infusions, monitor Hgb closely and transfuse as needed * SOB - No, on RA * Insomnia - + trouble sleeping, continue Melatonin * N/V - No nausea, continue Zofran * Anxiety - No * Depression - No * Confusion - No * Agitation - No * Hallucinations - No * Appetite/weight loss - + appetite loss and recent weight loss. PEG tube in place with tube feedings restarted & Dysphagia chopped diet * Dysphagia - + dysphagia 2/2 esopogeal mass, on Dysphagia chopped diet per [employer] recommendatins * Constipation - constipation - resolved. patient received Dulcolax suppository and MOM yesterday. + multiple BM's. Continue Miralax and Senokot-S. Dulcolax suppository ordered. * Incontinence - No * Itch - No Plan: Summary/Goals - The patient is sitting up in the chair. He states he feels much better today. He was able to have several bowel movements through out the night. His abdomen is softer and he denies any pain. He feels less bloated and denies any nausea. He was able to eat some breakfast and his tube feedings have been restarted. He is tolerating them well. He mentioned that the surgeon mentioned putting in a mediport. Not clear if this will be done this admission, or as an outpatient. He is anxious to get home and start his chemotherapy. Recommendations - Discharge home, when cleared medically, with home health care and palliative care. Follow up with oncology. Advanced Directives - No Code Status - Full Code Thank you for this consult Marianna Rain [facility]- Palliative Care [facility] [id number] Email: [email or web address] Time with Patient: Less than 30
[2022-06-18] MEDS: MELATONIN 3 MG TABLET PO SCH (21:20)
[2022-06-18 23:58] LABS: Glucose,Whole Blood 126 mg/dL (70-110)
[2022-06-19] MEDS: ONDANSETRON 4 MG/2 ML VIAL IVP PRN ×2 (00:16→11:26)
[2022-06-19] MEDS: HYDROmorphone 1 MG/ML 1 ML SYRINGE IVP PRN ×4 (01:14→21:55)
[2022-06-19] MEDS: AMPICILLIN-SULBACTAM 3 GM in SODIUM CHLORIDE 0.9% 100 ML IVPB SCH ×4 (04:39→21:54)
[2022-06-19 05:57] LABS: Glucose,Whole Blood 128 mg/dL (70-110)
[2022-06-19] MEDS: IPRATROPIUM-ALBUTEROL 3 ML NEB INHALATION SCH ×3 (07:17→19:48)
[2022-06-19 07:54] LABS: Anisocytosis Slight; HCT 23.2 % (39.0-53.0); HGB 7.3 gm/dL (13.0-17.5); Hypochromasia Marked; MCH 27.2 pg (25.0-35.0); MCHC 31.3 g/dL (31.0-37.0); MCV 86.8 fL (80.0-100.0); Mean Platelet Volume 7.7; Platelet Count 324 k/uL (150-450); Poikilocytosis Slight; RBC 2.67 m/uL (4.30-5.90); RDW 17.4 % (11.5-15.5); WBC 6.8 k/uL (3.8-10.6)
[2022-06-19] MEDS: SENNOSIDES-DOCUSATE SODIUM 1 EACH TAB PO SCH (10:27)
[2022-06-19] MEDS: polyethylene glycoL 3350 17 GM POWD.PACK PO SCH ×3 (10:28→21:55)
[2022-06-19] MEDS: PANTOPRAZOLE 40 MG/10 ML VIAL IV SCH (10:28)
--- NOTE | 2022-06-19 10:28 | P.PN ---
Subjective Progress Note Date: 06/19/22 Principal diagnosis: GIB The patient is a 56-year-old man who presented to the emergency department on 06/09/22 with complaints of abdominal pain and vomiting blood. Patient is significantly nauseous. Patient does have chest pain and abdominal pain. Patient is not lightheaded dizzy or weak. Patient has no prior history of bleeding from his stomach. He was admitted approximately 2 weeks ago with left abdominal pain, radiating through to the back, constipation for about 3-4 weeks, dysphagia and weight loss as he had not been able to eat. He was seen by his PCP Dr. Fine who sent him for a CT scan. CT AP showed esophageal wall thickening extending into the gastric cardia, expansile soft tissue lesion into 11th rib, retroperitoneal lymphadenopathy and other osseous lesions. Diffuse gallbladder thickening. Patient was scheduled to see gastroenterology but, he ended up inpatient. He was seen by Dr. Foster. He had an EGD 05/28/22, mass, found, biopsy positive for adenocarcinoma. Patient was scheduled to see the Medical Oncologist on 06/10/22 for biopsy results and plan of care. He is status post 2 units of blood for a hemoglobin of 6.3 on admit. His hemoglobin is now 8.2. 06/12 The patient is resting in bed and appears to be uncomfortable. RN notified that patient would like pain medication. Education provided regarding palliative care philosophies and services. The patient states he has just been diagnosed with esophageal cancer on 05/28/22. He had an appointment with his oncologist scheduled for 06/10 to discuss biopsy results and plan of care. He met with the oncology team here. They ordered an abdominal/pelvis CT to complete staging. He states that the scan was done, but no one discussed the results with him. The patient states his goal is prolonged survival. He is interested in finding out what his treatment option are. During this assessment, his PCP stopped in to examine the patient. He mentioned that the patient needs a feeding tube placed. He stated general surgery has already been consulted. The patient admits to having trouble swallowing solid food, but has never had a swallow eval. 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 Dietary consulted for recommendations on tube feedings. 06/16 The patient is resting in bed. He states he is still having abdominal pain, but it has improved. He states he does get relief with the Limestone and Dilaudid. His goal remains to be discharged home and to start treatment for his cancer on an outpatient basis. He is waiting for oncology to discuss treatment options available. He is tolerating tube feeding well and denies any nausea or vomiting. Per oncology, NGS and PD-L1 testing from original biopsy of esophageal mass has been sent and is pending and he should have CT chest prior to discharge to complete staging workup for assessment of disease burden prior to starting systemic treatment outpatient. 06/17 The patient is awake and pleasant. He states he understands his diagnosis of esophageal cancer and that it is metastatic to his bone. He stated that Dr. Lock discussed the abd/pelvic CT scand with him and how he should have CT chest prior to discharge to complete staging workup for assessment of disease burden prior to starting systemic treatment outpatient. The patient stated that yesterday evening he had abdominal pain, was bloated and nauseous. His tube feeding placed on hold. He does not remember the last time he had a bowel movement, but thinks it was at least a week ago. Dulcolax suppository ordered. 06/18 The patient is sitting up in the chair. He states he feels much better today. He was able to have several bowel movements through out the night. His abdomen is softer and he denies any pain. He feels less bloated and denies any nausea. He was able to eat some breakfast and his tube feedings have been restarted. He is tolerating them well. He mentioned that the surgeon mentioned putting in a mediport. Not clear if this will be done this admission, or as an outpatient. He is anxious to get home and start his chemotherapy. Objective - Vital Signs Vital signs: Vital Signs Temp 98.1 F 06/19/22 07:47 Pulse 78 06/19/22 07:47 Resp 15 06/19/22 07:47 BP 135/82 06/19/22 07:47 Pulse Ox 97 06/19/22 07:47 FiO2 Intake & Output 06/18/22 06/19/22 06/19/22 18:59 06:59 18:59 Intake Total 340 Balance 340 Weight 75 kg Intake: Oral 340 Other: Voiding Method Toilet Toilet Urinal Urinal - Exam General: Well developed, well nourished. No acute distress. Chronically ill appearing HEENT: Head is atraumatic, normocephalic. Sclerae are clear. Pupils equal, round and reactive to light bilaterally. Mucus membranes moist. CV: Heart regular in rate and rhythm positive S1 and S2. No clicks, rubs or murmurs. Peripheral pulses equal. 2/4 Lungs: Clear to auscultation bilaterally. No wheezes rales or rhonchi. Respirations even and nonlabored. on RA Abdomen/GI: soft and non-distended. Bowel sounds present in all 4 quadrants.No guarding, or rigidity. + mild RUQ abdominal tenderness. PEG tube in place Musculoskeletal/ Extremities: WALL, no joint deformity or swelling. No gross atrophy. + generalized weakness Vascular: Radial pulses equal. 2/4. 1+ lower extremity edema Skin: Warm and dry, No rash or lesions. Neurologic: Awake, alert and oriented times 3. CN II-XII grossly intact. No f ocal deficits. Psychiatric: Appropriate mood and affect. - Labs CBC & Chem 7: 06/19/22 07:12 06/15/22 15:40 Labs: Abnormal Lab Results - Last 24 Hours (Table) 06/18/22 06/19/22 06/19/22 Range/Units 23:56 05:55 07:12 RBC 2.67 L (4.30-5.90) m/uL Hgb 7.3 L (13.0-17.5) gm/dL Hct 23.2 L (39.0-53.0) % RDW 17.4 H (11.5-15.5) % POC Glucose (mg/dL) 126 H 128 H (70-110) mg/dL Assessment and Plan Assessment: Symptoms * Pain - 0/10 abdominal pain, Continue Limestone and Dilaudid prn * Fatigue - + generalized weakness and fatigue, continue iron infusions, monitor Hgb closely and transfuse as needed * SOB - No, on RA * Insomnia - + trouble sleeping, continue Melatonin * N/V - No nausea, continue Zofran * Anxiety - No * Depression - No * Confusion - No * Agitation - No * Hallucinations - No * Appetite/weight loss - + appetite loss and recent weight loss. PEG tube in place - currently clamped and patient NPO for procedure today * Dysphagia - + dysphagia 2/2 esophageal mass, currently NPO for procedure * Constipation - No,LBM 9/8 per patient. Continue Miralax and Senokot-S. Dulcolax suppository ordered. * Incontinence - No * Itch - No Plan: Summary/Goals - Patient up in the chair. He states he feels good today. He is currently NPO and tube feedings have been held for a mediport placement today. Prior to them being paced on hold, the patient states his tube feeding was up to goal and he was tolerating it well. He denies any abdominal pain, bloating, nausea or vomiting. He is anxious to go home. Recommendations - Discharge home, when cleared medically, with home health care and palliative care. Follow up with oncology. Advanced Directives - No Code Status - Full Code Thank you for this consult [facility] [id number] Email: [email or web address] Time with Patient: Less than 30
[2022-06-19] MEDS: SODIUM CHLORIDE 0.9% 1,000 ML IV SCH ×2 (11:27→21:55)
[2022-06-19 11:56] LABS: Glucose,Whole Blood 93 mg/dL (70-110)
[2022-06-19] MEDS ORDERED: IV FLUID CONTINUATION 1,000 ML IV ONE (12:50)
[2022-06-19] MEDS ORDERED: fentaNYL (PF) 50 MCG/ML 2 ML AMP ONE (12:56)
[2022-06-19] MEDS ORDERED: GLYCOPYRROLATE 0.2 MG/ML 2 ML VIAL ONE (12:56)
[2022-06-19] MEDS ORDERED: PROPOFOL 10 MG/ML 20 ML VIAL IV ONE (12:56)
[2022-06-19] MEDS ORDERED: KETAMINE 10 MG/ML 20 ML VIAL ONE (12:56)
[2022-06-19] MEDS ORDERED: MIDAZOLAM 2 MG/2 ML VIAL ONE (12:56)
[2022-06-19] MEDS ORDERED: SODIUM CHLORIDE 0.9% 50 ML with ceFAZolin 2,000 MG IV ONE ×2 (12:59)
[2022-06-19] MEDS ORDERED: BUPIVACAIN-EPI 0.25%-1:200,000 30 ML VIAL SQ ONE ×2 (13:24)
[2022-06-19] MEDS ORDERED: LACTATED RINGERS 1,000 ML IV ONE (13:37)
--- NOTE | 2022-06-19 14:10 | FL ---
Fluoroscopy History: Mediport Insertion 35sec fluoro time,1 image to PACS
--- NOTE | 2022-06-19 14:20 | XR ---
EXAMINATION TYPE: XR chest 1V DATE OF EXAM: 06/19/2022 HISTORY: Shortness of breath. COMPARISON: None. TECHNIQUE: Single view of the chest is submitted. FINDINGS: MediPort catheter with the distal tip overlying the SVC. No evidence for pneumothorax. Basilar parenc hymal densities noted which may reflect atelectasis and/or infiltrate. The heart is stable. Hilar and mediastinal structures are within normal limits. Degenerative changes are seen of the dorsal spine. IMPRESSION: 1. MediPort catheter with the distal tip overlying the SVC. No evidence for pneumothorax. Basilar pa renchymal densities noted which may reflect atelectasis and/or infiltrate.
[2022-06-19 16:39] LABS: Glucose,Whole Blood 93 mg/dL (70-110)
--- NOTE | 2022-06-19 17:07 | P.OP ---
Date of Procedure: 06/19/22 Preoperative Diagnosis: Adenocarcinoma GE Junction Postoperative Diagnosis: Adenocarcinoma GE junction Procedure(s) Performed: Mediport placement with fluoroscopy Anesthesia: MAC Surgeon: Beltran Meraz Pathology: none sent Condition: stable Disposition: floor Indications for Procedure: 56year old patient recently diagnosed with adenocarcinoma of the GE junction and poor venous access presents for Mediport placement for chemotherapy induction. Informed consent was obtained from the patient after explaining the risks, benefits and potential complications including bleeding, infection, pneumothorax and inadvertent arterial and venous injury. Patient demonstrated understanding and agreed to proceed with surgery. Operative Findings: Appropriate flush and withdrawal from port Description of Procedure: The patient was brought to the operating room and placed in supine position with both arms tucked.Chlorhexidine was used to prep the area followed by application of sterile drapes. A timeout was performed to verify correct patient, correct procedure and correct side. Patient was confirmed to receive perioperative IV antibiotics and bilateral SCDs. Local anesthesia was infiltrated along the propsed skin incision. Therightsubclavian vein was accessed on first attempt using the introducer needle. Dark venous backflow was obtained and syringe was discontinued followed by insertion of a guidewire. Fluoroscopy was performed to identify the tip of the guidewire in the right atrium. A 3 cm skin incision was made below therightclavicle and a subcutaneous pocket was developed above the pectoralis major fascia using electrocautery. Once appropriate pocket was created, a5 mm skin incision was made adjacent to the guidewire and the tract was dilated using a dilator sheath. The guidewire was then removed. Catheter was then placed through the dilator sheath. The peel-away sheath was removed as the catheter was advanced. The catheter was then tunneled to the pocket and connected to the port device.The port was positioned in the subcutaneous tissue without any kinks . Lock was then placed.Repeat fluoroscopy image was obtained to confirm the position of the catheter tip at the junction of SVC and right atrium. The port was flushed easily and blood could be withdrawn without any resistance. 10 mL of saline lock followed by 5 mL of Hep-Lock was inserted. The port was secured to the pectoralis muscle fascia using 2 stitches of 2- 0Prolene.. The incisions were closed in 2layers using interrupted sutures of 3-0 Vicryl followed by continuous sucuticular 4-0 Monocryl stitches. Steri-Strips were placed along with sterile dressing. The sponge, instrument and needle count were correct x 2. Patient tolerated the procedure well and was taken to post anesthesia care unit in stable condition A chest x-ray was ordered in the postanesthesia care unit.
[2022-06-19] MEDS: MELATONIN 3 MG TABLET PO SCH (21:55)
[2022-06-20 00:08] LABS: Glucose,Whole Blood 162 mg/dL (70-110)
[2022-06-20] MEDS: HYDROmorphone 1 MG/ML 1 ML SYRINGE IVP PRN ×4 (00:30→20:55)
--- NOTE | 2022-06-20 05:09 | PN ---
PROGRESS NOTE CHIEF COMPLAINT: Metastatic carcinoma of the esophagus. HISTORY OF PRESENT ILLNESS: This gentleman is doing a bit better. Pain is under little bit better control. He is going down today for a port for his chemotherapy. PHYSICAL EXAMINATION: GENERAL: He does appear to be losing weight and he is dehydrated. HEAD, EARS, EYES, NOSE, MOUTH: Normal except for dehydration. CHEST: Clear. CARDIAC: Demonstrates sinus tachycardia. IMPRESSION: Metastatic carcinoma of the esophagus. PLAN: He is going down today for a port and chemo and radiation will continue. MMODL / IJN: [id number] /
[2022-06-20] MEDS: AMPICILLIN-SULBACTAM 3 GM in SODIUM CHLORIDE 0.9% 100 ML IVPB SCH ×4 (05:18→20:34)
[2022-06-20 05:44] LABS: Glucose,Whole Blood 111 mg/dL (70-110)
--- NOTE | 2022-06-20 05:46 | PN ---
PROGRESS NOTE CHIEF COMPLAINT: Esophageal carcinoma. HISTORY OF PRESENT ILLNESS: This gentleman is doing fairly well, but he is still in quite a bit of pain. He is being set up for his radiation and chemotherapy. PHYSICAL EXAMINATION: LUNGS: Breath sounds are heard bilaterally. CARDIAC: Normal. GENERAL: He is dehydrated. IMPRESSION: Carcinoma of the esophagus. PLAN: Await discharge planning that will include arrangements for his radiation and chemotherapies. PEG tube is functioning well. MMODL / IJN: [id number] /
[2022-06-20] MEDS: IPRATROPIUM-ALBUTEROL 3 ML NEB INHALATION SCH ×3 (07:40→19:40)
[2022-06-20] MEDS: polyethylene glycoL 3350 17 GM POWD.PACK PO SCH ×3 (09:59→20:35)
[2022-06-20] MEDS: SENNOSIDES-DOCUSATE SODIUM 1 EACH TAB PO SCH (10:00)
[2022-06-20] MEDS: PANTOPRAZOLE 40 MG/10 ML VIAL IV SCH (10:00)
--- NOTE | 2022-06-20 11:05 | P.PN ---
Subjective 56-year-old male to the emergency department for evaluation. Patient's well- known to our emergency department, patient presents today for evaluation of abdominal pain chest pain and vomiting blood. Patient is significantly nauseous. Patient does have chest pain and abdominal pain. Patient is not lightheaded dizzy or weak. 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; patient underwent PEG tube placement this morning; dietary consulted for recommendations on tube feedings 06/14/2022 Patient is seen and evaluated sitting up in bedside chair; has been started on tube feedings Vital signs are reviewed and remained stable Lab review shows CBC of 12.3, hemoglobin improved to 9.1 from 6.9 yesterday after transfusion with 1 unit of packed RBCs, sodium of 134, potassium 3.7, BUN/creatinine of 6/0.63 Patient admitted for severe protein calorie malnutrition related to dysphagia 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 Patient complaining of from stomach pain about 8/10, patient with no vomiting or diarrhea. He had low-grade fever of 99.8 We are going to start the patient empirically on Unasyn antibiotic for possible intra-abdominal infection. We will check a pro-calcitonin and labs tomorrow. Oncology team also on the case for possible metastatic disease to the sacral bone with bone scan is ordered showing increased uptake in the right sacroiliac joint and left femoral greater trochanter as well as 11th rib, T2 and L sacral. 06/17/2022 Patient is still complaining from upper abdominal pain and tenderness, currently his pain is controlled with 2 milligram of Dilaudid every 3 hours. No significant flow vomiting but patient still has nausea. Also no more episodes of vomiting blood for now. Hemodynamically stable. No labs from today. We will check labs tomorrow. PEG tube in a Place, he wasn't 10 mL/h however because of his pain was going to hold it for today and check it tomorrow. He remains on Unasyn for possible intra-abdominal infection. Resume the care of the patient 06/20/2022 Patient today looks significantly different than last time I saw him, he is very comfortable and relaxed compared to severe distress and pain about 3 days ago. However on examination he still has mild epigastric tenderness present to his gastroesophageal junction tumor. He is able to tolerate his diet well and he is already eating, the same time his getting PEG tube feedings at 25 mL/h. Patient denies any more episodes of bleeding from the mouth are anywhere else. No more evidence of seizure-like activities. He is also hemodynamically stable. Hemoglobin yesterday 7.3, no labs from today, we going to check his hemoglobin tomorrow. He's also remains on Unasyn for possible intra-abdominal infection. Antibiotics can be considered to be switched to oral doses down the road so. Objective - Vital Signs Vital signs: Vital Signs Temp 98.5 F 06/20/22 04:00 Pulse 80 06/20/22 07:49 Resp 15 06/20/22 04:00 BP 131/87 06/20/22 04:00 Pulse Ox 95 06/20/22 04:00 FiO2 Intake & Output 06/19/22 06/20/22 06/20/22 18:59 06:59 18:59 Intake Total 450 Output Total 2 500 400 Balance 448 -500 -400 Weight 75 kg Intake: IV 450 Output: Urine 500 400 Estimated Blood Loss 2 Other: Voiding Method Toilet Toilet Urinal Urinal - Exam GENERAL: The patient is alert and oriented x3, not in any acute distress. Well developed, well nourished. HEENT: Pupils are round and equally reacting to light. EOMI. No sclera PULMONARY: Chest is clear to auscultation, no wheezing or crackles. -ABDOMEN: Soft, epigastric tenderness , no rebound tenderness,, nondistended, normoactive bowel sounds. No palpable organomegaly. MUSCULOSKELETAL: No joint swelling or deformity. EXTREMITIES: No cyanosis, clubbing, or pedal edema. NEUROLOGICAL: Gross neurological examination did not reveal any focal deficits. SKIN: No rashes. no petechiae. - Labs CBC & Chem 7: 06/19/22 07:12 06/15/22 15:40 Labs: Abnormal Lab Results - Last 24 Hours (Table) 06/20/22 06/20/22 Range/Units 00:07 05:43 POC Glucose (mg/dL) 162 H 111 H (70-110) mg/dL Assessment and Plan Assessment: 1. 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 Severe protein calorie malnutrition; related to dysphagia secondary to metastatic carcinoma of distal esophagus - Continue with tube feeding via PEG tube placement; patient also is eating his diet 3. 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 NGS and PDL [address]. - CT revealed destructive bone lesions sacrum - Bone scan: Multiple metastasis suspected on the right sacroiliac joint, left femur, 11th rib, T12 and the sacrum - Oncology team on the case 4. Chronic anemia; patient does have evidence of patient's; patient is status post 2 doses of IV iron supplement; we will continue to monitor CBC - Monitor hemoglobin - Continue with normal saline 5. COPD; not in exacerbation; continue with Symbicort inhaler; Singulair 10 mg daily; albuterol inhaler 4 times a day when necessary 6. Hypertension; hydralazine 10 mg twice a day; losartan 100 mg daily 7. BPH; Flomax 0.4 milligrams daily GI prophylaxis no anticoagulation for his significant anemia and possible GI bleed GI prophylaxis: Protonix Dr ayon will resume the care of the patient tomorrow
[2022-06-20 11:57] LABS: Glucose,Whole Blood 131 mg/dL (70-110)
[2022-06-20] MEDS: ONDANSETRON 4 MG/2 ML VIAL IVP PRN (15:03)
[2022-06-20] MEDS: SODIUM CHLORIDE 0.9% 1,000 ML IV SCH ×2 (16:30→16:31)
[2022-06-20 18:00] LABS: Glucose,Whole Blood 116 mg/dL (70-110)
[2022-06-20] MEDS: MELATONIN 3 MG TABLET PO SCH (20:35)
[2022-06-20 23:16] LABS: Glucose,Whole Blood 112 mg/dL (70-110)
[2022-06-21] MEDS: ONDANSETRON 4 MG/2 ML VIAL IVP PRN ×3 (02:26→23:38)
[2022-06-21] MEDS: HYDROmorphone 1 MG/ML 1 ML SYRINGE IVP PRN ×5 (02:26→23:38)
[2022-06-21] MEDS: AMPICILLIN-SULBACTAM 3 GM in SODIUM CHLORIDE 0.9% 100 ML IVPB SCH ×2 (04:11→10:02)
[2022-06-21 06:23] LABS: Glucose,Whole Blood 119 mg/dL (70-110)
[2022-06-21] MEDS: IPRATROPIUM-ALBUTEROL 3 ML NEB INHALATION SCH ×3 (08:34→19:25)
[2022-06-21 09:42] LABS: African American GFR (CKD) >90 (>60 ml/min/1.73 sqM); Anion Gap 7 mmol/L; Blood Urea Nitrogen 7 mg/dL (9-20); Calcium 8.3 mg/dL (8.4-10.2); Carbon Dioxide 29 mmol/L (22-30); Chloride 97 mmol/L (98-107); Glucose 109 mg/dL (74-99); Magnesium 1.9 mg/dL (1.6-2.3); Non-African American GFR(CKD) >90 (>60 ml/min/1.73 sqM); Potassium 3.6 mmol/L (3.5-5.1); Sodium 133 mmol/L (137-145)
[2022-06-21 09:50] LABS: Anisocytosis Slight; Basophils % (A) 1 %; Eosinophils # (A) 0.3 k/uL (0-0.7); Eosinophils % (A) 4 %; HCT 25.7 % (39.0-53.0); Hypochromasia Marked; Lymphocytes % (A) 13 %; MCH 26.7 pg (25.0-35.0); MCV 86.1 fL (80.0-100.0); Mean Platelet Volume 8.5; Monocytes # (A) 0.5 k/uL (0-1.0); Monocytes % (A) 6 %; Neutrophils # (A) 5.9 k/uL (1.3-7.7); Neutrophils % (A) 75 %; Platelet Count 385 k/uL (150-450); Poikilocytosis Slight; RBC 2.98 m/uL (4.30-5.90); RDW 17.8 % (11.5-15.5); WBC 7.9 k/uL (3.8-10.6)
[2022-06-21] MEDS: polyethylene glycoL 3350 17 GM POWD.PACK PO SCH ×3 (10:02→20:46)
[2022-06-21] MEDS: SENNOSIDES-DOCUSATE SODIUM 1 EACH TAB PO SCH (10:02)
[2022-06-21] MEDS: PANTOPRAZOLE 40 MG/10 ML VIAL IV SCH (10:02)
[2022-06-21] MEDS: SODIUM CHLORIDE 0.9% 1,000 ML IV SCH (10:07)
--- NOTE | 2022-06-21 10:58 | P.PN ---
Subjective 56-year-old male to the emergency department for evaluation. Patient's well- known to our emergency department, patient presents today for evaluation of abdominal pain chest pain and vomiting blood. Patient is significantly nauseous. Patient does have chest pain and abdominal pain. Patient is not lightheaded dizzy or weak. 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; patient underwent PEG tube placement this morning; dietary consulted for recommendations on tube feedings 06/14/2022 Patient is seen and evaluated sitting up in bedside chair; has been started on tube feedings Vital signs are reviewed and remained stable Lab review shows CBC of 12.3, hemoglobin improved to 9.1 from 6.9 yesterday after transfusion with 1 unit of packed RBCs, sodium of 134, potassium 3.7, BUN/creatinine of 6/0.63 Patient admitted for severe protein calorie malnutrition related to dysphagia 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 Patient complaining of from stomach pain about 8/10, patient with no vomiting or diarrhea. He had low-grade fever of 99.8 We are going to start the patient empirically on Unasyn antibiotic for possible intra-abdominal infection. We will check a pro-calcitonin and labs tomorrow. Oncology team also on the case for possible metastatic disease to the sacral bone with bone scan is ordered showing increased uptake in the right sacroiliac joint and left femoral greater trochanter as well as 11th rib, T2 and L sacral. 06/17/2022 Patient is still complaining from upper abdominal pain and tenderness, currently his pain is controlled with 2 milligram of Dilaudid every 3 hours. No significant flow vomiting but patient still has nausea. Also no more episodes of vomiting blood for now. Hemodynamically stable. No labs from today. We will check labs tomorrow. PEG tube in a Place, he wasn't 10 mL/h however because of his pain was going to hold it for today and check it tomorrow. He remains on Unasyn for possible intra-abdominal infection. Resume the care of the patient 06/20/2022 Patient today looks significantly different than last time I saw him, he is very comfortable and relaxed compared to severe distress and pain about 3 days ago. However on examination he still has mild epigastric tenderness present to his gastroesophageal junction tumor. He is able to tolerate his diet well and he is already eating, the same time his getting PEG tube feedings at 25 mL/h. Patient denies any more episodes of bleeding from the mouth are anywhere else. No more evidence of seizure-like activities. He is also hemodynamically stable. Hemoglobin yesterday 7.3, no labs from today, we going to check his hemoglobin tomorrow. He's also remains on Unasyn for possible intra-abdominal infection. Antibiotics can be considered to be switched to oral doses down the road so. 06/21/2022 Patient looks more comfortable today he does not look in distress or in severe pain while he is lying in his recliner. However when examining the patient he has significant epigastric tenderness but this is even the severe than on admission. Mostly related to his tumor. No more fever, leukocytosis and his Unasyn can be switched and to Augmentin. He still in normal saline 75 mL/h this can be stopped since he is getting PEG tube feeding. He sometimes tried to eat but he has very poor appetite. We will keep monitoring of blood pressure No more episodes of bleeding and his hemoglobin improved to 8.0. Continue with IV Protonix Objective - Vital Signs Vital signs: Vital Signs Temp 98.5 F 06/21/22 07:48 Pulse 72 06/21/22 07:48 Resp 16 06/21/22 07:48 BP 144/57 06/21/22 07:48 Pulse Ox 95 06/21/22 07:48 FiO2 Intake & Output 06/20/22 06/21/22 06/21/22 18:59 06:59 18:59 Intake Total 1200 Output Total 1100 875 Balance -1100 325 Intake: Intake, IV Titration 1200 Amount Ampicillin-Sulbactam 3 gm 200 In Sodium Chloride 0.9% 100 ml @ 200 mls/hr IVPB Q6H KARRIE Rx#:[id number] Sodium Chloride 0.9% 1, 1000 000 ml @ 75 mls/hr IV . [id number] KARRIE Rx#:[id number] Output: Urine 1100 875 Other: Voiding Method Toilet Toilet Urinal Urinal - Exam GENERAL: The patient is alert and oriented x3, not in any acute distress. Well developed, well nourished. HEENT: Pupils are round and equally reacting to light. EOMI. No sclera PULMONARY: Chest is clear to auscultation, no wheezing or crackles. -ABDOMEN: Soft, epigastric tenderness , no rebound tenderness,, nondistended, normoactive bowel sounds. No palpable organomegaly. MUSCULOSKELETAL: No joint swelling or deformity. EXTREMITIES: No cyanosis, clubbing, or pedal edema. NEUROLOGICAL: Gross neurological examination did not reveal any focal deficits. SKIN: No rashes. no petechiae. - Labs CBC & Chem 7: 06/21/22 09:04 06/21/22 09:04 Labs: Abnormal Lab Results - Last 24 Hours (Table) 06/20/22 06/20/22 06/20/22 Range/Units 11:54 17:59 23:15 POC Glucose (mg/dL) 131 H 116 H 112 H (70-110) mg/dL 06/21/22 Range/Units 06:22 POC Glucose (mg/dL) 119 H (70-110) mg/dL Assessment and Plan Assessment: 1. 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 Severe protein calorie malnutrition; related to dysphagia secondary to metastatic carcinoma of distal esophagus - Continue with tube feeding via PEG tube placement; patient also is eating his diet 3. 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 NGS and PDL 1 pending. - CT revealed destructive bone lesions sacrum - Bone scan: Multiple metastasis suspected on the right sacroiliac joint, left femur, 11th rib, T12 and the s acrum - Oncology team on the case 4. Chronic anemia; patient does have evidence of patient's; patient is status post 2 doses of IV iron supplement; we will continue to monitor CBC - Monitor hemoglobin - Continue with normal saline 5. COPD; not in exacerbation; continue with Symbicort inhaler; Singulair 10 mg daily; albuterol inhaler 4 times a day when necessary 6. Hypertension; hydralazine 10 mg twice a day; losartan 100 mg daily 7. BPH; Flomax 0.4 milligrams daily GI prophylaxis no anticoagulation for his significant anemia and possible GI bleed GI prophylaxis: Protonix Dr ayon will resume the care of the patient tomorrow 06/22
[2022-06-21 12:02] LABS: Glucose,Whole Blood 107 mg/dL (70-110)
[2022-06-21 18:02] LABS: Glucose,Whole Blood 110 mg/dL (70-110)
[2022-06-21] MEDS: MELATONIN 3 MG TABLET PO SCH (20:45)
[2022-06-21] MEDS: AMOXIC-POT CLAV 875-125MG 1 EACH TAB PEG/G-TUBE SCH (20:45)
[2022-06-22 01:12] LABS: Glucose,Whole Blood 101 mg/dL (70-110)
[2022-06-22] MEDS: ONDANSETRON 4 MG/2 ML VIAL IVP PRN ×3 (05:49→23:20)
[2022-06-22] MEDS: HYDROmorphone 1 MG/ML 1 ML SYRINGE IVP PRN ×2 (05:50→13:44)
[2022-06-22 06:39] LABS: Glucose,Whole Blood 116 mg/dL (70-110)
[2022-06-22] MEDS: IPRATROPIUM-ALBUTEROL 3 ML NEB INHALATION SCH ×3 (07:38→19:19)
[2022-06-22] MEDS: AMOXIC-POT CLAV 875-125MG 1 EACH TAB PEG/G-TUBE SCH ×2 (09:39→21:01)
[2022-06-22] MEDS: SENNOSIDES-DOCUSATE SODIUM 1 EACH TAB PO SCH (09:39)
[2022-06-22] MEDS: polyethylene glycoL 3350 17 GM POWD.PACK PO SCH ×3 (09:40→20:56)
[2022-06-22] MEDS: PANTOPRAZOLE 40 MG/10 ML VIAL IV SCH (09:40)
[2022-06-22] MEDS: HYDROcodone/APAP 10-325MG 1 EACH TAB PO PRN ×3 (11:52→23:19)
[2022-06-22 12:04] LABS: Glucose,Whole Blood 111 mg/dL (70-110)
--- NOTE | 2022-06-22 12:06 | P.PN ---
Subjective Progress Note Date: 06/22/22 Principal diagnosis: GIB The patient is a 56-year-old man who presented to the emergency department on 06/09/22 with complaints of abdominal pain and vomiting blood. Patient is significantly nauseous. Patient does have chest pain and abdominal pain. Patient is not lightheaded dizzy or weak. Patient has no prior history of bleeding from his stomach. He was admitted approximately 2 weeks ago with left abdominal pain, radiating through to the back, constipation for about 3-4 weeks, dysphagia and weight loss as he had not been able to eat. He was seen by his PCP Dr. Fine who sent him for a CT scan. CT AP showed esophageal wall thickening extending into the gastric cardia, expansile soft tissue lesion into 11th rib, retroperitoneal lymphadenopathy and other osseous lesions. Diffuse gallbladder thickening. Patient was scheduled to see gastroenterology but, he ended up inpatient. He was seen by Dr. Foster. He had an EGD 05/28/22, mass, found, biopsy positive for adenocarcinoma. Patient was scheduled to see the Medical Oncologist on 06/10/22 for biopsy results and plan of care. He is status post 2 units of blood for a hemoglobin of 6.3 on admit. His hemoglobin is now 8.2. 06/12 The patient is resting in bed and appears to be uncomfortable. RN notified that patient would like pain medication. Education provided regarding palliative care philosophies and services. The patient states he has just been diagnosed with esophageal cancer on 05/28/22. He had an appointment with his oncologist scheduled for 06/10 to discuss biopsy results and plan of care. He met with the oncology team here. They ordered an abdominal/pelvis CT to complete staging. He states that the scan was done, but no one discussed the results with him. The patient states his goal is prolonged survival. He is interested in finding out what his treatment option are. During this assessment, his PCP stopped in to examine the patient. He mentioned that the patient needs a feeding tube placed. He stated general surgery has already been consulted. The patient admits to having trouble swallowing solid food, but has never had a swallow eval. 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 Dietary consulted for recommendations on tube feedings. 06/16 The patient is resting in bed. He states he is still having abdominal pain, but it has improved. He states he does get relief with the [place] and Dilaudid. His goal remains to be discharged home and to start treatment for his cancer on an outpatient basis. He is waiting for oncology to discuss treatment options available. He is tolerating tube feeding well and denies any nausea or vomiting. Per oncology, NGS and PD-L1 testing from original biopsy of esophageal mass has been sent and is pending and he should have CT chest prior to discharge to complete staging workup for assessment of disease burden prior to starting systemic treatment outpatient. 06/17 The patient is awake and pleasant. He states he understands his diagnosis of esophageal cancer and that it is metastatic to his bone. He stated that Dr. Lock discussed the abd/pelvic CT scand with him and how he should have CT chest prior to discharge to complete staging workup for assessment of disease burden prior to starting systemic treatment outpatient. The patient stated that yesterday evening he had abdominal pain, was bloated and nauseous. His tube feeding placed on hold. He does not remember the last time he had a bowel movement, but thinks it was at least a week ago. Dulcolax suppository ordered. 06/18 The patient is sitting up in the chair. He states he feels much better today. He was able to have several bowel movements through out the night. His abdomen is softer and he denies any pain. He feels less bloated and denies any nausea. He was able to eat some breakfast and his tube feedings have been restarted. He is tolerating them well. He mentioned that the surgeon mentioned putting in a mediport. Not clear if this will be done this admission, or as an outpatient. He is anxious to get home and start his chemotherapy. 06/19 Patient up in the chair. He states he feels good today. He is currently NPO and tube feedings have been held for a mediport placement today. Prior to them being paced on hold, the patient states his tube feeding was up to goal and he was tolerating it well. He denies any abdominal pain, bloating, nausea or vomiting. He is anxious to go home. Objective - Vital Signs Vital signs: Vital Signs Temp 98.4 F 06/22/22 09:34 Pulse 77 06/22/22 09:34 Resp 16 06/22/22 09:34 BP 123/84 06/22/22 09:34 Pulse Ox 95 06/22/22 09:34 FiO2 Intake & Output 06/21/22 06/22/22 06/22/22 18:59 06:59 18:59 Intake Total 300 Output Total 1250 775 750 Balance -7219 -710 -105 Intake: Tube Feeding 300 Output: Urine 1250 775 750 Other: Voiding Method Toilet Toilet Urinal Urinal - Exam General: Well developed, well nourished. No acute distress. HEENT: Head is atraumatic, normocephalic. Sclerae are clear. Pupils equal, round and reactive to light bilaterally. Mucus membranes moist. CV: Heart regular in rate and rhythm positive S1 and S2. No clicks, rubs or murmurs. Peripheral pulses equal. 2/4 Lungs: Clear to auscultation bilaterally. No wheezes rales or rhonchi. Respirations even and nonlabored. on RA Abdomen/GI: soft and non-distended. Bowel sounds present in all 4 quadrants.No guarding, or rigidity. + mild abdominal tenderness. PEG tube in place Musculoskeletal/ Extremities: WALL, no joint deformity or swelling. No gross atrophy. + generalized weakness Vascular: Radial pulses equal. 2/4. Trace lower extremity edema Skin: Warm and dry, No rash or lesions. Right ACW incision with steri strips intact Neurologic: Awake, alert and oriented times 3. CN II-XII grossly intact. No focal deficits. Psychiatric: Appropriate mood and affect. - Labs CBC & Chem 7: 06/21/22 09:04 06/21/22 09:04 Labs: Abnormal Lab Results - Last 24 Hours (Table) 06/22/22 Range/Units 06:36 POC Glucose (mg/dL) 116 H (70-110) mg/dL Assessment and Plan Assessment: Symptoms * Pain - 5/10 abdominal pain, Continue [place] and Dilaudid prn * Fatigue - + generalized weakness and fatigue, continue iron infusions, monitor Hgb closely and transfuse as needed * SOB - No, on RA * Insomnia - + trouble sleeping, continue Melatonin * N/V - No nausea, continue Zofran * Anxiety - No * Depression - No * Confusion - No * Agitation - No * Hallucinations - No * Appetite/weight loss - + appetite loss and recent weight loss. PEG tube in place TF at goal, continue chopped diet, encourage oral intake, continue ensure supplement * Dysphagia - + dysphagia 2/2 esophageal mass, [employer] following, continue chopped diet * Constipation - No,LBM 06/18 per patient. Continue Miralax, Senokot-S, Dulcolax. * Incontinence - No * Itch - No Plan: Summary/Goals - The patient is resting in bed. He appears slightly uncomfortable, and c/o abdominal pain around peg tube. Peg tube site clean and dry. Patient encourage to start using oral pain medication, [place], instead of IV Dilaudid in anticipation of being discharged soon. He states the [place] does not work. Dosage increased accordingly. The patient states he has not had a BM since 06/18. He is on Miralax and Senokot-S daily. He was encouraged to ask for a Dulcolax. RN notified. Oncology at bedside and discussing treatment options. The patient has a positive attitude and eager to get started. It was explained to him that there is no cure for his metastatic disease. The hope is that treatment will shrink his esophageal tumor, making it easier to eat. Recommendations - Discharge home, when cleared medically, with home health care and palliative care. Follow up with oncology. Advanced Directives - No Code Status - Full Code Thank you for this consult Marianna Rain [facility] Palliative Care Spectralink [phone] Email: [email or web address] Time with Patient: Less than 30
--- NOTE | 2022-06-22 19:10 | P.PN ---
Subjective Progress Note Date: 06/22/22 Principal diagnosis: metastatic GE junction adenocarcinoma, stomach pain In f/u today pt states tolerating PEG feeds, mild tenderness around PEG insertion, less leakage, has felt better after BM. Objective - Vital Signs Vital signs: Vital Signs Temp 98.4 F 06/22/22 09:34 Pulse 77 06/22/22 09:34 Resp 16 06/22/22 09:34 BP 123/84 06/22/22 09:34 Pulse Ox 95 06/22/22 09:34 FiO2 Intake & Output 06/21/22 06/22/22 06/22/22 18:59 06:59 18:59 Intake Total 300 Output Total 1250 775 750 Balance -0591 -569 -750 Intake: Tube Feeding 300 Output: Urine 1250 775 750 Other: Voiding Method Toilet Toilet Urinal Urinal - Constitutional General appearance: Present: average body habitus, cooperative, no acute distress - EENT Eyes: Present: anicteric sclerae, EOMI ENT: Present: hearing grossly normal, normal oropharynx - Respiratory Respiratory: bilateral: CTA - Cardiovascular Rhythm: regular Heart sounds: normal: S1, S2 Abnormal Heart Sounds: Absent: systolic murmur, diastolic murmur, rub, S3 Gallop , S4 Gallop, click, other - Peripheral edema leg Peripheral Edema: bilateral: None - Gastrointestinal General gastrointestinal: Present: decreased bowel sounds, soft, tenderness (mild, around PEG) - Neurologic Neurologic: Present: CNII-XII intact - Musculoskeletal Musculoskeletal: Present: strength equal bilaterally - Psychiatric Psychiatric: Present: A&O x's 3, appropriate affect, intact judgment & insight - Labs CBC & Chem 7: 06/21/22 09:04 06/21/22 09:04 Labs: Abnormal Lab Results - Last 24 Hours (Table) 06/22/22 Range/Units 06:36 POC Glucose (mg/dL) 116 H (70-110) mg/dL Assessment and Plan (1) Adenocarcinoma of gastroesophageal junction Current Visit: Yes Status: Acute Priority: High Code(s): C16.0 - MALIGNANT NEOPLASM OF CARDIA SNOMED Code(s): 851068084 (2) Anemia Current Visit: Yes Status: Acute Code(s): D64.9 - ANEMIA, UNSPECIFIED SNOMED Code(s): 738161643 Plan: 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 NGS and PDL 1 pending. Metastatic disease. Port has been placed. Appointment for patient in ofc in 3 days-if he is able to be discharged before then. Options for treatment will be discussed. Until treatment of the cancer is started episodes of GI bleeding can happen spontaneously. For anemia, 2 doses of IV iron given. Hgb stable. We will keep his CBC monitored in the outpatient setting. Transfuse as needed. Pt has had PEG placed, now finally tolerating feeds. attests: I have seen and examined patient, performed H&P, developed impression and plan of care. Discussed with dictator. Agree with dictation, documented as a scribe
[2022-06-22] MEDS: MELATONIN 3 MG TABLET PO SCH (21:01)
[2022-06-23 00:06] LABS: Glucose,Whole Blood 105 mg/dL (70-110)
[2022-06-23 04:21] VITALS: RESP 18
[2022-06-23] MEDS: HYDROmorphone 1 MG/ML 1 ML SYRINGE IVP PRN ×3 (04:44→19:03)
[2022-06-23 05:59] LABS: Glucose,Whole Blood 110 mg/dL (70-110)
[2022-06-23] MEDS: IPRATROPIUM-ALBUTEROL 3 ML NEB INHALATION SCH ×2 (07:42→11:11)
[2022-06-23] MEDS: AMOXIC-POT CLAV 875-125MG 1 EACH TAB PEG/G-TUBE SCH (09:43)
[2022-06-23] MEDS: PANTOPRAZOLE 40 MG/10 ML VIAL IV SCH (09:43)
[2022-06-23] MEDS: polyethylene glycoL 3350 17 GM POWD.PACK PO SCH ×2 (09:43→17:05)
[2022-06-23] MEDS: SENNOSIDES-DOCUSATE SODIUM 1 EACH TAB PO SCH (09:43)
[2022-06-23] MEDS: HYDROcodone/APAP 10-325MG 1 EACH TAB PO PRN ×2 (09:44→14:33)
[2022-06-23 11:40] LABS: Glucose,Whole Blood 101 mg/dL (70-110)
--- NOTE | 2022-06-23 12:41 | P.PN ---
Subjective Progress Note Date: 06/23/22 Principal diagnosis: GIB The patient is a 56-year-old man who presented to the emergency department on 06/09/22 with complaints of abdominal pain and vomiting blood. Patient is significantly nauseous. Patient does have chest pain and abdominal pain. Patient is not lightheaded dizzy or weak. Patient has no prior history of bleeding from his stomach. He was admitted approximately 2 weeks ago with left abdominal pain, radiating through to the back, constipation for about 3-4 weeks, dysphagia and weight loss as he had not been able to eat. He was seen by his PCP Dr. Fine who sent him for a CT scan. CT AP showed esophageal wall thickening extending into the gastric cardia, expansile soft tissue lesion into 11th rib, retroperitoneal lymphadenopathy and other osseous lesions. Diffuse gallbladder thickening. Patient was scheduled to see gastroenterology but, he ended up inpatient. He was seen by Dr. Foster. He had an EGD 05/28/22, mass, found, biopsy positive for adenocarcinoma. Patient was scheduled to see the Medical Oncologist on 06/10/22 for biopsy results and plan of care. He is status post 2 units of blood for a hemoglobin of 6.3 on admit. His hemoglobin is now 8.2. 06/12 The patient is resting in bed and appears to be uncomfortable. RN notified that patient would like pain medication. Education provided regarding palliative care philosophies and services. The patient states he has just been diagnosed with esophageal cancer on 05/28/22. He had an appointment with his oncologist scheduled for 06/10 to discuss biopsy results and plan of care. He met with the oncology team here. They ordered an abdominal/pelvis CT to complete staging. He states that the scan was done, but no one discussed the results with him. The patient states his goal is prolonged survival. He is interested in finding out what his treatment option are. During this assessment, his PCP stopped in to examine the patient. He mentioned that the patient needs a feeding tube placed. He stated general surgery has already been consulted. The patient admits to having trouble swallowing solid food, but has never had a swallow eval. 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 Dietary consulted for recommendations on tube feedings. 06/16 The patient is resting in bed. He states he is still having abdominal pain, but it has improved. He states he does get relief with the Gormania and Dilaudid. His goal remains to be discharged home and to start treatment for his cancer on an outpatient basis. He is waiting for oncology to discuss treatment options available. He is tolerating tube feeding well and denies any nausea or vomiting. Per oncology, NGS and PD-L1 testing from original biopsy of esophageal mass has been sent and is pending and he should have CT chest prior to discharge to complete staging workup for assessment of disease burden prior to starting systemic treatment outpatient. 06/17 The patient is awake and pleasant. He states he understands his diagnosis of esophageal cancer and that it is metastatic to his bone. He stated that Dr. Lock discussed the abd/pelvic CT scand with him and how he should have CT chest prior to discharge to complete staging workup for assessment of disease burden prior to starting systemic treatment outpatient. The patient stated that yesterday evening he had abdominal pain, was bloated and nauseous. His tube feeding placed on hold. He does not remember the last time he had a bowel movement, but thinks it was at least a week ago. Dulcolax suppository ordered. 06/18 The patient is sitting up in the chair. He states he feels much better today. He was able to have several bowel movements through out the night. His abdomen is softer and he denies any pain. He feels less bloated and denies any nausea. He was able to eat some breakfast and his tube feedings have been restarted. He is tolerating them well. He mentioned that the surgeon mentioned putting in a mediport. Not clear if this will be done this admission, or as an outpatient. He is anxious to get home and start his chemotherapy. 06/19 Patient up in the chair. He states he feels good today. He is currently NPO and tube feedings have been held for a mediport placement today. Prior to them being paced on hold, the patient states his tube feeding was up to goal and he was tolerating it well. He denies any abdominal pain, bloating, nausea or vomiting. He is anxious to go home. Objective - Vital Signs Vital signs: Vital Signs Temp 97.9 F 06/23/22 04:00 Pulse 68 06/23/22 11:21 Resp 18 06/23/22 04:00 BP 150/82 06/23/22 04:00 Pulse Ox 95 06/23/22 04:00 FiO2 Intake & Output 06/22/22 06/23/22 06/23/22 18:59 06:59 18:59 Intake Total 275 945 Output Total 1350 2625 Balance -1075 -1680 Weight 75 kg Intake: Oral 120 Tube Feeding 275 825 Output: Urine 1350 2625 Other: Voiding Method Toilet Toilet Urinal Urinal - Exam General: Well developed, well nourished. No acute distress. HEENT: Head is atraumatic, normocephalic. Sclerae are clear. Pupils equal, round and reactive to light bilaterally. Mucus membranes moist. CV: Heart regular in rate and rhythm positive S1 and S2. No clicks, rubs or murmurs. Peripheral pulses equal. 2/4 Lungs: Clear to auscultation bilaterally. No wheezes rales or rhonchi. Respirations even and nonlabored. on RA Abdomen/GI: soft and non-distended. Bowel sounds present in all 4 quadrants.No guarding, or rigidity. + mild abdominal tenderness. PEG tube in place Musculoskeletal/ Extremities: WALL, no joint deformity or swelling. No gross atrophy. + generalized weakness Vascular: Radial pulses equal. 2/4. Trace lower extremity edema Skin: Warm and dry, No rash or lesions. Right ACW incision with steri strips intact Neurologic: Awake, alert and oriented times 3. CN II-XII grossly intact. No focal deficits. Psychiatric: Appropriate mood and affect. - Labs CBC & Chem 7: 06/21/22 09:04 06/21/22 09:04 Assessment and Plan Assessment: Symptoms * Pain - 5/10 abdominal pain, Continue Gormania and Dilaudid prn * Fatigue - + generalized weakness and fatigue, continue iron infusions, monitor Hgb closely and transfuse as needed * SOB - No, on RA * Insomnia - + trouble sleeping, continue Melatonin * N/V - No nausea, continue Zofran * Anxiety - No * Depression - No * Confusion - No * Agitation - No * Hallucinations - No * Appetite/weight loss - + appetite loss and recent weight loss. PEG tube in place with TF, continue chopped diet, encourage oral intake, continue ensure supplement * Dysphagia - + dysphagia 2/2 esophageal mass, [employer] following, continue chopped diet * Constipation - Continue Miralax, Senokot-S, Dulcolax. BM x 2 today * Incontinence - No * Itch - No Plan: Summary/Goals - The patient is resting in bed. He states he feels better because he was finally able to have a BM. He also stated that he was in a lot of pain last night. He tried to wait until his pain is at a 2-3/10 before asking for oral pain medication. His pain comes on fast. He stated by the time the nurse is able to bring it, and it takes time to work, the pain is out of control. He does not take the Gormania frequently. It was suggested that he ask for pain medication as soon as the pain starts instead of trying to wait. Recommendations - Discharge home, when cleared medically, with home health care and palliative care. Follow up with oncology. Advanced Directives - No Code Status - Full Code Thank you for this consult Marianna Rain [facility] [id number] Email: [email or web address] Time with Patient: Less than 30
[2022-06-23 14:47] VITALS: BP 152/84; PULSE 78; TEMP 98
--- NOTE | 2022-06-23 17:51 | P.PN ---
Subjective Progress Note Date: 06/23/22 Principal diagnosis: metastatic GE junction adenocarcinoma, stomach pain In f/u today pt continues to tolerate PEG feeds, no nausea, vomiting, heartburn. he continues to have left flank pain, this does radiate up towards his shoulder blade. reports that when he receives a Manitou, it takes about 30 minutes to work, it will decrease his pain score by about 2 points. he feels that he can function with a pain score around 2 or 3. No other acute complaints at this time. Objective - Vital Signs Vital signs: Vital Signs Temp 98.0 F 06/23/22 08:00 Pulse 78 06/23/22 14:00 Resp 18 06/23/22 14:00 BP 152/84 06/23/22 08:00 Pulse Ox 95 06/23/22 08:00 FiO2 Intake & Output 06/22/22 06/23/22 06/23/22 18:59 06:59 18:59 Intake Total 275 945 275 Output Total 1350 2625 725 Balance -1075 -1680 -450 Weight 75 kg Intake: Oral 120 Tube Feeding 275 825 275 Output: Urine 1350 2625 725 Other: Voiding Method Toilet Toilet Toilet Urinal Urinal Urinal - Constitutional General appearance: Present: average body habitus, cooperative, no acute distress - EENT Eyes: Present: anicteric sclerae, EOMI ENT: Present: hearing grossly normal - Respiratory Respiratory: bilateral: CTA - Cardiovascular Rhythm: regular Heart sounds: normal: S1, S2 Abnormal Heart Sounds: Absent: systolic murmur, diastolic murmur, rub, S3 Gallop, S4 Gallop, click, other - Peripheral edema leg Peripheral Edema: bilateral: None - Gastrointestinal Gastrointestinal Comment(s): PEG, scant amount of drainage around insertion site General gastrointestinal: Present: distended, soft - Neurologic Neurologic: Present: CNII-XII intact - Musculoskeletal Musculoskeletal: Present: generalized weakness - Psychiatric Psychiatric: Present: A&O x's 3, appropriate affect, intact judgment & insight - Labs CBC & Chem 7: 06/21/22 09:04 06/21/22 09:04 Assessment and Plan (1) Adenocarcinoma of gastroesophageal junction Current Visit: Yes Status: Acute Priority: High Code(s): C16.0 - MALIGNANT NEOPLASM OF CARDIA SNOMED Code(s): 088414449 (2) Anemia Current Visit: Yes Status: Acute Code(s): D64.9 - ANEMIA, UNSPECIFIED SNOMED Code(s): 218260302 Plan: 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 NGS and PDL 1 pending. Xgeva for bone metastases Metastatic disease. Port has been placed. Appointment 06/25 at 3:30pm. Options for treatment to be discussed. Hopefully we will have NGS and biomarker testing by then. Until treatment of the cancer is started episodes of GI bleeding can happen spontaneously. For anemia, 2 doses of IV iron given. Hgb stable. We will keep his CBC monitored in the outpatient setting. Transfuse as needed. PEG placed, tolerating feeds. after discussing pain management with the patient, have agreed to Manitou 10/325, 1 tab every 4 hours as needed for pain-prescription was sent from the office, spoke with RN once it was sent. Patient was educated on the importance of maintaining a soft, easily passable bowel movement and the use of senna/Colace. Rx for that was also sent to his [facility] on [address]. Time with Patient: Greater than 30
[2022-06-23 18:07] LABS: Glucose,Whole Blood 110 mg/dL (70-110)
[2022-06-23] MEDS: ONDANSETRON 4 MG/2 ML VIAL IVP PRN (19:04)
--- NOTE | 2022-06-24 18:47 | DS ---
DISCHARGE SUMMARY CHIEF COMPLAINT: Abdominal pain, difficulty swallowing along with anemia. HISTORY OF PRESENT ILLNESS AND PHYSICAL EXAMINATION: Details of this man's history and physical can be found in the initial workup. LABORATORY STUDIES: While he was in the hospital, he had laboratory studies, details of which can be found in the laboratory section of his chart. COURSE IN THE HOSPITAL: After admission, he was placed on bedrest, started on intravenous fluids and a workup to completely evaluate his carcinoma. He was found to have carcinoma of the distal esophagus. He was seen by Oncology and Radiology. While he was in the hospital, he had quite a bit of discomfort, but this was fairly well managed. Arrangements were made for him to start chemotherapy along with radiation therapy and discharge planning was carried out and it was felt that he could be discharged on the and he will go home and we will manage his care from there. FINAL DIAGNOSES: 1. Advanced metastatic carcinoma of the esophagus. 2. Anemia. OPERATIONS: Endoscopy and port placement as well as PEG tube placement. CONSULTATIONS: Radiation Therapy, Oncology, and Surgery. MMODL / IJN: [id number] /
--- NOTE | 2022-06-24 19:47 | PN ---
PROGRESS NOTE CHIEF COMPLAINT: Metastatic carcinoma of the esophagus. HISTORY OF PRESENT ILLNESS: This gentleman is doing reasonably well. PEG tube is in and ports placed. Working on discharge plan. His pain management has definitely improved. PHYSICAL EXAMINATION: CHEST: Clear. CARDIAC: Normal. ABDOMEN: A little bit tender over the epigastrium. IMPRESSION: Carcinoma of the esophagus, metastatic. PLAN: Probably home in the next day or two. MMODL / IJN: [id number] /
== END 2022-06-23 19:52 | disposition home health service (06) | DRG 374 ==
LOC: EC 04:43 → 3SCARD 07:32
PROVIDERS: ADMIT Family Medicine; ATTEND Family Medicine
PROC: 30233N1 Transfusion of Nonautologous Red Blood Cells into Peripheral Vein, Percutaneous Approach (ICD-10-PCS; 2022-06-09)
PROC: 3E0G76Z Introduction of Nutritional Substance into Upper GI, Via Natural or Artificial Opening (ICD-10-PCS; 2022-06-13)
PROC: 0DH63UZ Insertion of Feeding Device into Stomach, Percutaneous Approach (ICD-10-PCS; principal; 2022-06-13 09:00)
PROC: 02H633Z Insertion of Infusion Device into Right Atrium, Percutaneous Approach (ICD-10-PCS; 2022-06-19)
DX: C16.0 Malignant neoplasm of cardia (principal); E43 Unspecified severe protein-calorie malnutrition; K94.23 Gastrostomy malfunction; K92.0 Hematemesis; C79.51 Secondary malignant neoplasm of bone; D62 Acute posthemorrhagic anemia; I10 Essential (primary) hypertension; J44.9 Chronic obstructive pulmonary disease, unspecified; D63.0 Anemia in neoplastic disease; K22.2 Esophageal obstruction; R13.10 Dysphagia, unspecified; R47.02 Dysphasia; G47.00 Insomnia, unspecified; K59.00 Constipation, unspecified; N40.0 Benign prostatic hyperplasia without lower urinary tract symptoms; R50.81 Fever presenting with conditions classified elsewhere; Z79.51 Long term (current) use of inhaled steroids; Z79.899 Other long term (current) drug therapy; Z83.79 Family history of other diseases of the digestive system; Z83.6 Family history of other diseases of the respiratory system
CPT/HCPCS: 36415; 43246; 71045; 71260; 74176; 74177; 77001; 78306; 80048; 80053; 83690; 83735; 84100; 84484; 85025; 85027; 85610; 85730; 86850; 86900; 86901; 86920; 93005; 94640; 96374; 96375; 99291

== ENCOUNTER 2022-07-03 11:22 | Inpatient (IN) | payer OTHER ==
[2022-07-03] MEDS ORDERED: PANTOPRAZOLE 40 MG/10 ML VIAL IVP STA (13:28)
[2022-07-03 13:58] LABS: Calcium 10.4 mg/dL (8.4-10.2); Potassium 4.3 mmol/L (3.5-5.1); Total Bilirubin 0.6 mg/dL (0.2-1.3); Total Protein 8.1 g/dL (6.3-8.2)
[2022-07-03 14:02] LABS: Partial Thromboplastin Time 23.7 sec (22.0-30.0); Prothrombin Time 10.7 sec (9.0-12.0)
[2022-07-03 14:19] LABS: Anisocytosis Slight; Basophils # (A) 0.1 k/uL (0-0.2); Basophils % (A) 1 %; Eosinophils # (A) 0.2 k/uL (0-0.7); Eosinophils % (A) 2 %; HGB 8.2 gm/dL (13.0-17.5); Hypochromasia Moderate; Lymphocytes # (A) 1.6 k/uL (1.0-4.8); Lymphocytes % (A) 11 %; MCH 24.1 pg (25.0-35.0); MCHC 31.4 g/dL (31.0-37.0); Mean Platelet Volume 8.2; Microcytosis Slight; Monocytes # (A) 0.6 k/uL (0-1.0); Monocytes % (A) 4 %; Neutrophils # (A) 11.7 k/uL (1.3-7.7); Neutrophils % (A) 82 %; Platelet Count 667 k/uL (150-450); Poikilocytosis Slight; RDW 17.3 % (11.5-15.5); WBC 14.3 k/uL (3.8-10.6)
[2022-07-03 14:20] LABS: MCV 76.7 fL (80.0-100.0)
[2022-07-03 15:01] LABS: Poikilocytosis (M) Present; Target Cells Present
[2022-07-03] MEDS ORDERED: LORazepam 2 MG/ML INJ IV STA (15:13)
[2022-07-03] MEDS ORDERED: HYDROmorphone 0.5 MG/0.5 ML SYRINGE IVP STA (15:33)
[2022-07-03] MEDS: SODIUM CHLORIDE 0.9% 1,000 ML IV SCH (15:34)
[2022-07-03] MEDS ORDERED: NALOXONE 0.4 MG/ML 1 ML VIAL IV PRN (15:34)
--- NOTE | 2022-07-03 15:41 | ED ---
General Adult HPI - General Chief complaint: Abdominal Pain Stated complaint: Vomiting, [email or web address] Time Seen by Provider: 07/03/22 13:20 Source: patient, RN notes reviewed, old records reviewed Mode of arrival: ambulatory Limitations: no limitations - History of Present Illness Initial comments: 56-year-old male with recent diagnosis of carcinoma of the distal esophagus presents from the infusion center for evaluation of blood in his PEG tube. Patient has had abdominal pain since the time of discharge. He is found to have advanced adenocarcinoma. Patient was evaluated by oncology as well as general surgery. He states he noticed a small amount of blood in his PEG tube over the past 12-24 hours. - Related Data Home Medications Medication Instructions Recorded Confirmed Chlorthalidone [Hygroton] 25 mg PEG/G-TUBE DAILY 09/11/21 07/03/22 Losartan Potassium [Cozaar] 100 mg PEG/G-TUBE DAILY 09/11/21 07/03/22 Montelukast [Singulair] 10 mg PEG/G-TUBE DAILY 09/11/21 07/03/22 amLODIPine [Norvasc] 10 mg PEG/G-TUBE DAILY 09/11/21 07/03/22 Albuterol Sulfate [Proair Hfa] 1 puff INHALATION RT-QID PRN 05/26/22 07/03/22 hydrALAZINE HCL [Apresoline] 10 mg PEG/G-TUBE DAILY 05/26/22 07/03/22 Atorvastatin [Lipitor] 40 mg PEG/G-TUBE DIRECTED 07/03/22 07/03/22 HYDROcodone/APAP 10-325MG [[place] 1 tab PEG/G-TUBE Q4HR PRN 07/03/22 07/03/22 10-325] Ondansetron Odt [Zofran Odt] 8 mg PO Q8HR PRN 07/03/22 07/03/22 Sennosides/Docusate Sodium [Senna 2 cap PEG/G-TUBE BID 07/03/22 07/03/22 Plus 8.6-50 mg Softgel] Tamsulosin [Flomax] 0.4 mg PEG/G-TUBE DIRECTED 07/03/22 07/03/22 fentaNYL 12MCG/HR PATCH [Duragesic 1 patch TRANSDERM Q72H 07/03/22 07/03/22 12MCG/HR] Previous Rx's Medication Instructions Recorded Lidocaine-Prilocaine Cream [Emla 1 applic TOPICAL DIRECTED PRN 06/22/22 Cream 2.5%/2.5%] #30 gm Allergies Allergy/AdvReac Type Severity Reaction Status Date / Time No Known Allergies Allergy Verified 07/03/22 11:46 Review of Systems ROS Statement: Those systems with pertinent positive or pertinent negative responses have been documented in the HPI. ROS Other: All systems not noted in ROS Statement are negative. Past Medical History Past Medical History: Asthma, Cancer, Hypertension Additional Past Medical History / Comment(s): Recent difficulty swa llowing/esophageal stricture. Stomach CA History of Any Multi-Drug Resistant Organisms: None Reported Past Surgical History: No Surgical Hx Reported Past Anesthesia/Blood Transfusion Reactions: Unable to Obtain Additional Past Anesthesia/Blood Transfusion Reaction / Comment(s): Pt has never had surgery/anesthesia. Past Psychological History: No Psychological Hx Reported Smoking Status: Never smoker Past Alcohol Use History: None Reported Past Drug Use History: None Reported - Past Family History Father Family Medical History: No Reported History Additional Family Medical History / Comment(s): Father is healthy Mother Additional Family Medical History / Comment(s): Mother has a trach/pt cannot recall reason. Brother(s) Additional Family Medical History / Comment(s): Brother has colostomy, pt cannot recall reason. General Exam Limitations: no limitations General appearance: alert, in no apparent distress Head exam: Present: atraumatic, normocephalic Eye exam: Present: normal appearance, PERRL ENT exam: Present: mucous membranes dry Neck exam: Present: normal inspection. Absent: tenderness, meningismus Respiratory exam: Present: normal lung sounds bilaterally. Absent: respiratory distress Cardiovascular Exam: Present: regular rate, normal rhythm GI/Abdominal exam: Present: soft, tenderness (Mild generalized tenderness) Extremities exam: Present: normal inspection, normal capillary refill Neurological exam: Present: alert, oriented X3, CN II-XII intact. Absent: motor sensory deficit Psychiatric exam: Present: normal affect, normal mood Skin exam: Present: warm, dry, intact Course Vital Signs 07/03/22 11:41 Temperature 98.2 F Pulse Rate 91 Respiratory 20 Rate Blood Pressure 110/72 O2 Sat by Pulse 100 Oximetry Medical Decision Making - Medical Decision Making 56-year-old male with carcinoma of the lower esophagus and suspected upper GI bleed. Patient's hemodynamics are stable. His hemoglobin is stable and improved from recent laboratory testing. I did discuss case with his primary care physician Dr. Fine who is familiar with the patient. At this time we will admit with general surgery who is familiar with the patient on consult. Patient will be kept nothing by mouth, is provided IV hydration. He is placed on Protonix. Pain medicine has been ordered. - Lab Data Result diagrams: 07/03/22 13:31 07/03/22 13:31 Lab Results 07/03/22 07/03/22 07/03/22 Range/Units 13:31 13:31 13:31 WBC 14.3 H (3.8-10.6) k/uL RBC 3.40 L (4.30-5.90) m/uL Hgb 8.2 L (13.0-17.5) gm/dL Hct 26.0 L (39.0-53.0) % MCV 76.7 L D (80.0-100.0) fL MCH 24.1 L (25.0-35.0) pg MCHC 31.4 (31.0-37.0) g/dL RDW 17.3 H (11.5-15.5) % Plt Count 667 H (150-450) k/uL MPV 8.2 Neutrophils % 82 % Lymphocytes % 11 % Monocytes % 4 % Eosinophils % 2 % Basophils % 1 % Neutrophils # 11.7 H (1.3-7.7) k/uL Lymphocytes # 1.6 (1.0-4.8) k/uL Monocytes # 0.6 (0-1.0) k/uL Eosinophils # 0.2 (0-0.7) k/uL Basophils # 0.1 (0-0.2) k/uL Manual Slide Review Performed Hypochromasia Moderate Poikilocytosis Slight Poikilocytosis (manual Present Anisocytosis Slight Microcytosis Slight Target Cells Present PT 10.7 (9.0-12.0) sec INR 1.0 (<1.2) APTT 23.7 (22.0-30.0) sec Sodium 126 L (137-145) mmol/L Potassium 4.3 (3.5-5.1) mmol/L Chloride 86 L (98-107) mmol/L Carbon Dioxide 27 (22-30) mmol/L Anion Gap 13 mmol/L BUN 75 H (9-20) mg/dL Creatinine 1.41 H (0.66-1.25) mg/dL Est GFR (CKD-EPI)AfAm 65 (>60 ml/min/1.73 sqM) Est GFR (CKD-EPI)NonAf 56 (>60 ml/min/1.73 sqM) Glucose 111 H (74-99) mg/dL Plasma Lactic Acid Arpit (0.7-2.0) mmol/L Calcium 10.4 H (8.4-10.2) mg/dL Total Bilirubin 0.6 (0.2-1.3) mg/dL AST 35 (17-59) U/L ALT 25 (4-49) U/L Alkaline Phosphatase 263 H (38-126) U/L Total Protein 8.1 (6.3-8.2) g/dL Albumin 4.0 (3.5-5.0) g/dL Lipase 91 (23-300) U/L Blood Type Blood Type Recheck Bld Type Recheck Status Antibody Screen Spec Expiration Date 07/03/22 07/03/22 Range/Units 13:31 13:31 WBC (3.8-10.6) k/uL RBC (4.30-5.90) m/uL Hgb (13.0-17.5) gm/dL Hct (39.0-53.0) % MCV (80.0-100.0) fL MCH (25.0-35.0) pg MCHC (31.0-37.0) g/dL RDW (11.5-15.5) % Plt Count (150-450) k/uL MPV Neutrophils % % Lymphocytes % % Monocytes % % Eosinophils % % Basophils % % Neutrophils # (1.3-7.7) k/uL Lymphocytes # (1.0-4.8) k/uL Monocytes # (0-1.0) k/uL Eosinophils # (0-0.7) k/uL Basophils # (0-0.2) k/uL Manual Slide Review Hypochromasia Poikilocytosis Poikilocytosis (manual Anisocytosis Microcytosis Target Cells PT (9.0-12.0) sec INR (<1.2) APTT (22.0-30.0) sec Sodium (137-145) mmol/L Potassium (3.5-5.1) mmol/L Chloride (98-107) mmol/L Carbon Dioxide (22-30) mmol/L Anion Gap mmol/L BUN (9-20) mg/dL Creatinine (0.66-1.25) mg/dL Est GFR (CKD-EPI)AfAm (>60 ml/min/1.73 sqM) Est GFR (CKD-EPI)NonAf (>60 ml/min/1.73 sqM) Glucose (74-99) mg/dL Plasma Lactic Acid Arpit 0.9 (0.7-2.0) mmol/L Calcium (8.4-10.2) mg/dL Total Bilirubin (0.2-1.3) mg/dL AST (17-59) U/L ALT (4-49) U/L Alkaline Phosphatase (38-126) U/L Total Protein (6.3-8.2) g/dL Albumin (3.5-5.0) g/dL Lipase (23-300) U/L Blood Type O Positive Blood Type Recheck O Pos Bld Type Recheck Status No Antibody Screen NEGATIVE Spec Expiration Date 07/06/20222330 Disposition Clinical Impression: Anemia, Esophageal mass, Adenocarcinoma of gastroesophageal junction Disposition: ADMITTED IP TO THIS HOSP Condition: Stable Is patient prescribed a controlled substance at d/c from ED?: No Referrals: Jeff Fine MD [Primary Care Provider] - 1-2 days Time of Disposition: 15:41
--- NOTE | 2022-07-03 18:55 | P.GSCN ---
History of Present Illness Consult date: 07/03/22 Reason for Consult: History of stage IV esophageal cancer, bleeding seen at PEG tube, chronic anemia History of present illness: Patient is a 56-year-old gentleman sent to [facility] emergency department on 07/03/2022 after is some blood was seen within his PEG tube on an oncology follow-up appointment. 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 These undergone subsequent PEG placement. He's been treated with a chemotherapy, follows routinely with oncology. He has yet to be assessed by radiation oncology. He hasn't had another upper endoscopy since his PEG was placed within the past 2 months. A computed tomography scan of the abdomen and pelvis was reviewed from this past May showing evidence of bony metastases and a bulky tumor of the gastric cardia encroaching on the GE junction. Patient admits to some subjective chills today and some mild dizziness with position changes and diffuse abdominal pains that have persisted since he started chemotherapy. Laboratory studies today show a white blood cell count of 14.3, hemoglobin 8.2 which is higher than his historical values over the past 2 months, platelet count high at 667. MCV was 76.7, mean corpuscular hemoglobin 24.1, RDW 17.3. INR was 1.0. Metabolic panel shows hyponatremia with sodium of 126, potassium 4.3, CO2 of 27, creatinine slightly high at 1.41, glucose of 111. AST and MALT were 35 and 25 respectively, alkaline phosphatase a bit elevated at 263, total bilirubin 0.3, lipase 91. He tells me doesn't take nonsteroidal anti-inflammatory medications routinely, has never been diagnosed with discrete peptic ulcer disease, is not maintained on oral anticoagulant or antiplatelet medications. He remains full code. Review of Systems All systems: negative - Constitutional Reports as per HPI - EENT Ears, nose, mouth and throat: Reports as per HPI - Cardiovascular Reports as per HPI - Respiratory Reports as per HPI - Gastrointestinal Reports as per HPI - Genitourinary Reports as per HPI - Musculoskeletal Reports as per HPI - Integumentary Reports as per HPI - Neurological Reports as per HPI - Psychiatric Reports as per HPI - Endocrine Reports as per HPI - Hematologic/Lymphatic Reports as per HPI - Allergic/Immunologic Reports as per HPI Past Medical History Past Medical History: Asthma, Cancer, Hypertension Additional Past Medical History / Comment(s): Recent difficulty swallowing/esophageal stricture. Stomach CA History of Any Multi-Drug Resistant Organisms: None Reported Past Surgical History: No Surgical Hx Reported Past Anesthesia/Blood Transfusion Reactions: Unable to Obtain Additional Past Anesthesia/Blood Transfusion Reaction / Comm: Pt has never had surgery/anesthesia. Past Psychological History: No Psychological Hx Reported Smoking Status: Never smoker Past Alcohol Use History: None Reported Past Drug Use History: None Reported - Past Family History Father Family Medical History: No Reported History Additional Family Medical History / Comment(s): Father is healthy Mother Additional Family Medical History / Comment(s): Mother has a trach/pt cannot recall reason. Brother(s) Additional Family Medical History / Comment(s): Brother has colostomy, pt cannot recall reason. Medications and Allergies Home Medications Medication Instructions Recorded Confirmed Type Chlorthalidone [Hygroton] 25 mg PEG/G-TUBE DAILY 09/11/21 07/03/22 History Losartan Potassium [Cozaar] 100 mg PEG/G-TUBE DAILY 09/11/21 07/03/22 History Montelukast [Singulair] 10 mg PEG/G-TUBE DAILY 09/11/21 07/03/22 History amLODIPine [Norvasc] 10 mg PEG/G-TUBE DAILY 09/11/21 07/03/22 History Albuterol Sulfate [Proair Hfa] 1 puff INHALATION RT-QID PRN 05/26/22 07/03/22 History hydrALAZINE HCL [Apresoline] 10 mg PEG/G-TUBE DAILY 05/26/22 07/03/22 History Lidocaine-Prilocaine Cream [Emla 1 applic TOPICAL DIRECTED PRN 06/22/22 07/03/22 Rx Cream 2.5%/2.5%] #30 gm Atorvastatin [Lipitor] 40 mg PEG/G-TUBE DIRECTED 07/03/22 07/03/22 History HYDROcodone/APAP 10-325MG [Rotan 1 tab PEG/G-TUBE Q4HR PRN 07/03/22 07/03/22 History 10-325] Ondansetron Odt [Zofran Odt] 8 mg PO Q8HR PRN 07/03/22 07/03/22 History Sennosides/Docusate Sodium [Senna 2 cap PEG/G-TUBE BID 07/03/22 07/03/22 History Plus 8.6-50 mg Softgel] Tamsulosin [Flomax] 0.4 mg PEG/G-TUBE DIRECTED 07/03/22 07/03/22 History fentaNYL 12MCG/HR PATCH [Duragesic 1 patch TRANSDERM Q72H 07/03/22 07/03/22 History 12MCG/HR] Allergies Allergy/AdvReac Type Severity Reaction Status Date / Time No Known Allergies Allergy Verified 07/03/22 11:46 Surgical - Exam Osteopathic Statement: *. No significant issues noted on an osteopathic structural exam other than those noted in the History and Physical/Consult. Vital Signs Temp Pulse Resp BP Pulse Ox 98.2 F 91 20 110/72 100 07/03/22 11:41 07/03/22 11:41 07/03/22 11:41 07/03/22 11:41 07/03/22 11:41 - General well developed, no distress - Eyes PERRL, normal ocular movement - ENT normal pinna, normal nares, normal mucosa, no hearing loss - Neck no masses, trachea midline - Respiratory normal expansion, clear to auscultation - Cardiovascular Rhythm: regular - Abdomen Abdomen is soft with mild diffuse tenderness and voluntary guarding. No rebound or distention. PEG ios in place. I don't appreciate any signs of bleeding at present. - Integumentary no abnormal pigmentation - Neurologic normal coordination, normal sensation - Psychiatric oriented to time, oriented to person, oriented to place, speech is normal, memory intact Results - Labs 07/03/22 13:31 07/03/22 13:31 Abnormal Lab Results - Last 24 Hours (Table) 07/03/22 07/03/22 Range/Units 13:31 13:31 WBC 14.3 H (3.8-10.6) k/uL RBC 3.40 L (4.30-5.90) m/uL Hgb 8.2 L (13.0-17.5) gm/dL Hct 26.0 L (39.0-53.0) % MCV 76.7 L D (80.0-100.0) fL MCH 24.1 L (25.0-35.0) pg RDW 17.3 H (11.5-15.5) % Plt Count 667 H (150-450) k/uL Neutrophils # 11.7 H (1.3-7.7) k/uL Sodium 126 L (137-145) mmol/L Chloride 86 L (98-107) mmol/L BUN 75 H (9-20) mg/dL Creatinine 1.41 H (0.66-1.25) mg/dL Glucose 111 H (74-99) mg/dL Calcium 10.4 H (8.4-10.2) mg/dL Alkaline Phosphatase 263 H (38-126) U/L Diabetes panel 07/03/22 Range/Units 13:31 Sodium 126 L (137-145) mmol/L Potassium 4.3 (3.5-5.1) mmol/L Chloride 86 L (98-107) mmol/L Carbon Dioxide 27 (22-30) mmol/L BUN 75 H (9-20) mg/dL Creatinine 1.41 H (0.66-1.25) mg/dL Glucose 111 H (74-99) mg/dL Calcium 10.4 H (8.4-10.2) mg/dL AST 35 (17-59) U/L ALT 25 (4-49) U/L Alkaline Phosphatase 263 H (38-126) U/L Total Protein 8.1 (6.3-8.2) g/dL Albumin 4.0 (3.5-5.0) g/dL Calcium panel 07/03/22 Range/Units 13:31 Calcium 10.4 H (8.4-10.2) mg/dL Albumin 4.0 (3.5-5.0) g/dL Pituitary panel 07/03/22 Range/Units 13:31 Sodium 126 L (137-145) mmol/L Potassium 4.3 (3.5-5.1) mmol/L Chloride 86 L (98-107) mmol/L Carbon Dioxide 27 (22-30) mmol/L BUN 75 H (9-20) mg/dL Creatinine 1.41 H (0.66-1.25) mg/dL Glucose 111 H (74-99) mg/dL Calcium 10.4 H (8.4-10.2) mg/dL Adrenal panel 07/03/22 Range/Units 13:31 Sodium 126 L (137-145) mmol/L Potassium 4.3 (3.5-5.1) mmol/L Chloride 86 L (98-107) mmol/L Carbon Dioxide 27 (22-30) mmol/L BUN 75 H (9-20) mg/dL Creatinine 1.41 H (0.66-1.25) mg/dL Glucose 111 H (74-99) mg/dL Calcium 10.4 H (8.4-10.2) mg/dL Total Bilirubin 0.6 (0.2-1.3) mg/dL AST 35 (17-59) U/L ALT 25 (4-49) U/L Alkaline Phosphatase 263 H (38-126) U/L Total Protein 8.1 (6.3-8.2) g/dL Albumin 4.0 (3.5-5.0) g/dL - Imaging CT scan - abdomen: report reviewed, image reviewed CT scan - pelvis: report reviewed, image reviewed Assessment and Plan Assessment: 56-year-old gentleman with a history of a would appear to be 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 Microcytic, hypochromic anemia, chronic in nature. Hemoglobin today is about the hiatus it's been the past 2 months. Thrombocytosis, suspect relating to underlying malignancy. Reports of intermittent signs of bleeding at the gastrostomy tube. Patient has a hemodynamically stable appearance at present. Presenting lethargy, fatigue and chills. Suspect an element of dehydration with hyponatremia and elevation of serum creatinine. Plan: Options for treatment and workup were discussed with the patient. As he has a hemodynamically stable appearance at present I don't think rushing into an upper endoscopy would be cassidy for the time being. He was advised that cancers do have a tendency to be quite friable, will bleed on and off. It is no surprise that he been noticing some blood at the gastrostomy tube from time to time given his upward trend in hemoglobin 9 doubt its a hemodynamically significant amount of blood loss. It does look like he has a degree of dehydration, IV fluids are warranted in the meantime. Start with empiric treatment of peptic ulcer disease and gastritis with PPI twice daily. He has signs of pronounced acute bleeding upper endoscopy would be warranted, for the time being I think watchful waiting is the wisest choice. Ultimately this will calm down to a discussion of goals of care with his oncologist, there may be a role for palliative radiation. We will follow Time with Patient: Greater than 30
[2022-07-03] MEDS: HYDROmorphone 0.5 MG/0.5 ML SYRINGE IVP PRN (22:15)
[2022-07-03] MEDS: PANTOPRAZOLE 40 MG/10 ML VIAL IV SCH (22:18)
[2022-07-04] MEDS: HYDROmorphone 0.5 MG/0.5 ML SYRINGE IVP PRN ×4 (03:46→21:40)
--- NOTE | 2022-07-04 04:17 | HP ---
HISTORY AND PHYSICAL CHIEF COMPLAINT: GI bleed through PEG tube. HISTORY OF PRESENT ILLNESS: This is an another admission for this unfortunate gentleman, who has been diagnosed as advanced metastatic carcinoma of the distal esophagus and proximal stomach. He has gone home with a plan that he would be treated with chemo and radiation. PEG tube was placed. Blood was starting to come out around the PEG tube, and he came back to the emergency room. REVIEW OF SYSTEMS: He has had no headaches, chest pain, shortness of breath, melena, hematochezia, hypotension, etc. Past medical history, family history, and personal and social histories are all otherwise unchanged. PHYSICAL EXAMINATION: VITAL SIGNS: Blood pressure is 105/64 with a pulse of 83, respirations of 32. He is afebrile. GENERAL: He appeared to be slightly pale and weak. SKIN: Dry. HEAD, EARS, EYES, NOSE, MOUTH, AND THROAT: Normal. CHEST: Clear. CARDIAC: Normal. ABDOMEN: Slightly distended and firm in the upper quadrants. The PEG tube was in place with some blood evident. Bowel sounds are present. EXTREMITIES: Normal. NEUROLOGICAL: Intact. ASSESSMENT: He is admitted to the hospital with diagnoses: 1. Blood loss through PEG tube. 2. Advanced carcinoma of the esophagus. 3. Blood loss anemia. PLAN: 1. Bedrest. 2. IV fluids. 3. Monitor hemoglobin. 4. Surgery consult. MMODL / IJN: [id number] /
[2022-07-04] MEDS: SODIUM CHLORIDE 0.9% 1,000 ML IV SCH ×2 (05:26→13:41)
[2022-07-04] MEDS: PANTOPRAZOLE 40 MG/10 ML VIAL IV SCH ×2 (09:13→21:32)
[2022-07-04 12:25] LABS: Anisocytosis Slight; Basophils # (A) 0.1 k/uL (0-0.2); Basophils % (A) 1 %; Eosinophils # (A) 0.4 k/uL (0-0.7); Eosinophils % (A) 5 %; HGB 7.6 gm/dL (13.0-17.5); Hypochromasia Marked; Lymphocytes # (A) 1.3 k/uL (1.0-4.8); Lymphocytes % (A) 14 %; MCH 24.7 pg (25.0-35.0); MCHC 30.4 g/dL (31.0-37.0); MCV 81.3 fL (80.0-100.0); Mean Platelet Volume 7.3; Microcytosis Slight; Monocytes # (A) 0.2 k/uL (0-1.0); Monocytes % (A) 2 %; Neutrophils % (A) 78 %; Platelet Count 502 k/uL (150-450); Poikilocytosis Slight; RBC 3.07 m/uL (4.30-5.90); RDW 17.8 % (11.5-15.5)
[2022-07-04 12:43] LABS: ALT 26 U/L (4-49); AST 35 U/L (17-59); African American GFR (CKD) >90 (>60 ml/min/1.73 sqM); Albumin 3.3 g/dL (3.5-5.0); Albumin/Globulin Ratio 0.9; Alkaline Phosphatase 263 U/L (38-126); Anion Gap 11 mmol/L; Blood Urea Nitrogen 40 mg/dL (9-20); Calcium 9.1 mg/dL (8.4-10.2); Carbon Dioxide 26 mmol/L (22-30); Chloride 93 mmol/L (98-107); Globulin 3.7 g/dL; Glucose 90 mg/dL (74-99); Non-African American GFR(CKD) >90 (>60 ml/min/1.73 sqM); Potassium 4.3 mmol/L (3.5-5.1); Sodium 130 mmol/L (137-145); Total Bilirubin 0.5 mg/dL (0.2-1.3)
--- NOTE | 2022-07-04 14:37 | P.PN ---
Subjective Progress Note Date: 07/04/22 Principal diagnosis: Stage IV esophageal cancer, suspected upper GI bleed, acute dehydration Patient seen and examined at bedside. He tells me he's feeling a good bit better today compared to yesterday. His alertness and energy level have improved. No bowel movement yet. The starting to feel a bit hungry. Very slight improvement with respect to diffuse abdominal pains. Appears comfortable at rest. He's had an afebrile and hemodynamically stable appearance overnight. Leukocytosis is improved to 9.0 from 14 on presentation. Hemoglobin is essentially stable condition. To his historical values at 7.6, slightly decreased compared to her presentation in the setting of IV fluids. Platelet count remains high at 502. Serum sodium is improving a bit to 130 and creatin ine has normalized at 0.79 from 1.4 on presentation. He is still of the opinion that he like to avoid any invasive testing if possible. Objective - Vital Signs Vital signs: Vital Signs Temp 98.2 F 07/04/22 11:20 Pulse 69 07/04/22 11:20 Resp 16 07/04/22 11:20 BP 101/66 07/04/22 11:20 Pulse Ox 100 07/04/22 11:20 FiO2 Intake & Output 07/03/22 07/04/22 07/04/22 18:59 06:59 18:59 Intake Total 0 Output Total 900 220 Balance -900 -220 Weight 68.039 kg 68.039 kg Intake: Oral 0 Output: Urine 900 220 Other: Voiding Method Bedside Commode Bedside Commode Urinal Urinal - Constitutional General appearance: Present: no acute distress, thin - EENT Eyes: Present: EOMI, PERRLA ENT: Present: NA/AT - Respiratory Respiratory: bilateral: CTA - Cardiovascular Rhythm: regular - Gastrointestinal Gastrointestinal Comment(s): Abdomen is soft with moderate focal left upper quadrant tenderness to palpation, no guarding rebound or distention. No hard signs for peritonitis. No evidence of bleeding seen at the gastrostomy tube General gastrointestinal: Present: decreased bowel sounds - Integumentary Integumentary: Present: normal - Neurologic Neurologic: Present: CNII-XII intact - Musculoskeletal Musculoskeletal: Present: generalized weakness - Psychiatric Psychiatric: Present: A&O x's 3, appropriate affect, intact judgment & insight - Labs CBC & Chem 7: 07/04/22 11:42 07/04/22 11:42 Labs: Abnormal Lab Results - Last 24 Hours (Table) 07/03/22 07/04/22 07/04/22 Range/Units 13:31 11:42 11:42 RBC 3.07 L (4.30-5.90) m/uL Hgb 7.6 L (13.0-17.5) gm/dL Hct 25.0 L (39.0-53.0) % MCH 24.7 L (25.0-35.0) pg MCHC 30.4 L (31.0-37.0) g/dL RDW 17.8 H (11.5-15.5) % Plt Count 502 H (150-450) k/uL Neutrophils # 11.7 H (1.3-7.7) k/uL Sodium 130 L (137-145) mmol/L Chloride 93 L (98-107) mmol/L BUN 40 H (9-20) mg/dL Alkaline Phosphatase 263 H (38-126) U/L Albumin 3.3 L (3.5-5.0) g/dL Assessment and Plan Assessment: 56-year-old gentleman with a history of a would appear to be 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 Reports of intermittent signs of bleeding at the gastrostomy tube, no evidence thereof seen today. Patient has a hemodynamically stable appearance at present. Microcytic, hypochromic anemia, chronic in nature. Hemoglobin today is about the the same as it's been the past 2 months. Thrombocytosis, suspect relating to underlying malignancy. Presenting lethargy, fatigue and chills, improved with overnight IV fluids. Suspect an element of dehydration with hyponatremia and elevation of serum creatinine, similarly improving. Plan: As he has a hemodynamically stable appearance at present I don't think rushing into an upper endoscopy would be cassidy for the time being. He was advised that cancers do have a tendency to be quite friable, will bleed on and off. It is no surprise that he been noticing some blood at the gastrostomy tube from time to time. Patient's of the opinion that he like to avoid any procedures for now unless absolutely necessary. His intravascular volume deficit looks to be improving with IV fluids. Start with empiric treatment of peptic ulcer disease and gastritis with PPI twice daily. If he has signs of pronounced acute bleeding upper endoscopy would be warranted, for the time being I think watchful waiting is the wisest choice. Ultimately this will come down to a discussion of goals of care with his oncologist, there may be a role for palliative radiation. We will follow. Okay for ice chips, may resume tube feeds via PEG at any time. Time with Patient: Greater than 30
[2022-07-05] MEDS: HYDROmorphone 0.5 MG/0.5 ML SYRINGE IVP PRN ×4 (00:41→17:07)
--- NOTE | 2022-07-05 06:23 | PN ---
PROGRESS NOTE CHIEF COMPLAINT: GI blood loss. HISTORY OF PRESENT ILLNESS: This is a gentleman who continues to do some slow oozing. He is very depressed. 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 He is gradually getting weaker. He has only had 1 chemo treatment. PHYSICAL EXAMINATION: CHEST: Clear. ABDOMEN: Soft. IMPRESSION: 1. Advanced and metastatic carcinoma of the esophagus. 2. Gastrointestinal blood loss. PLAN: I had a lengthy discussion with the patient suggesting that it is probably best for him to go to an extended care facility, where more needs could be met and he could be monitored more closely while getting his treatments. This case is concerning, in that the prognosis is very poor and hospice might eventually have to be discussed. GLENN / DOMINIC: [id number] /
[2022-07-05] MEDS: SODIUM CHLORIDE 0.9% 1,000 ML IV SCH ×2 (08:02→15:44)
[2022-07-05] MEDS: PANTOPRAZOLE 40 MG/10 ML VIAL IV SCH ×2 (08:02→20:19)
--- NOTE | 2022-07-05 12:59 | P.PN ---
Subjective Progress Note Date: 07/05/22 Principal diagnosis: Stage IV esophageal cancer, suspected upper GI bleed, acute dehydration Patient seen and examined at bedside. He's had some issues with the nausea and epigastric pain since starting tube feeds. He admits to 2 bouts of clear- appearing emesis overnight without signs of bleeding. 2 feeds were running at 20 mL/h, were discontinued early this morning. There is still evidence of residual tube feeding solution seen at the gastric tube proximal to the clamp. Patient's no sutures me it was appropriately flushed. Voiding without issue, no reported bowel movement yet. Patient's been afebrile overnight, no evidence of tachycardia, blood pressures have been consistent in the 100s to 110 systolic over 70. Saturating well on room air. Objective - Vital Signs Vital signs: Vital Signs Temp 98.7 F 07/05/22 11:54 Pulse 72 07/05/22 11:54 Resp 18 07/05/22 11:54 BP 110/71 07/05/22 11:54 Pulse Ox 98 07/05/22 11:54 FiO2 Intake & Output 07/04/22 07/05/22 07/05/22 18:59 06:59 18:59 Output Total 220 700 Balance -220 -700 Weight 68.5 kg Output: Urine 220 700 Other: Voiding Method Bedside Commode Bedside Commode Urinal Urinal Urinal - Constitutional General appearance: Present: cooperative, no acute distress, thin - EENT Eyes: Present: PERRLA ENT: Present: NA/AT - Respiratory Respiratory: bilateral: CTA - Cardiovascular Rhythm: regular - Gastrointestinal Gastrointestinal Comment(s): Mild epigastric tenderness to palpation, no rebound, voluntary guarding is present. No evidence of bleeding seen at gastrostomy tube, there is some tube feeding solution present within the lumen proximal to the clamp. 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 Reports of intermittent signs of bleeding at the gastrostomy tube, no evidence thereof seen today. Patient has a hemodynamically stable appearance at present. Would appear to be issues with intolerance to tube feeding, suspect element of delayed gastric emptying. Rule out malfunction or malposition. Microcytic, hypochromic anemia, chronic in nature. Hemoglobin today is about the the same as it's been the past 2 months. Thrombocytosis, suspect relating to underlying malignancy. Presenting lethargy, fatigue and chills, improved with overnight IV fluids. Suspect an element of dehydration with hyponatremia and elevation of serum creatinine, similarly improving. Plan: Will start patient empirically on Reglan for motility. Tube feeds of been held for now. Will obtain a CT abdomen and pelvis with oral and IV contrast prior to resuming to check for positioning and to look for signs of gastric outlet obstruction. He does not seem to be actively bleeding at the moment. Daily labs. May potentially benefit from palliative radiation, will need to follow-up on an outpatient basis with medical and radiation oncology for clarification of goals of care and prognosis. Time with Patient: Greater than 30
[2022-07-05] MEDS: METOCLOPRAMIDE 5 MG/ML 2 ML VIAL IVP SCH ×2 (15:46→23:55)
[2022-07-06] MEDS: SODIUM CHLORIDE 0.9% 1,000 ML IV SCH ×3 (04:01→17:32)
[2022-07-06] MEDS: HYDROmorphone 0.5 MG/0.5 ML SYRINGE IVP PRN ×2 (04:01→07:38)
[2022-07-06] MEDS: METOCLOPRAMIDE 5 MG/ML 2 ML VIAL IVP SCH ×3 (05:22→18:48)
--- NOTE | 2022-07-06 07:30 | PN ---
PROGRESS NOTE CHIEF COMPLAINT: Terminal metastatic carcinoma of the esophagus with GI bleeding. HISTORY OF PRESENT ILLNESS: This gentleman continues to do poorly. He cannot tolerate the tube feedings probably because available gastric volume is depleted with tumor. His hemoglobin is around 7.6 at this time. PHYSICAL EXAMINATION: CHEST: Clear. CARDIAC: Normal. ABDOMEN: firm in the upper aspects and tender. IMPRESSION: Advanced, metastatic, terminal carcinoma of the esophagus. PLAN: 1. Hold tube feedings. 2. Continue with pain management. 3. Consult Oncology. Discharge planning is going to be an issue. He is rapidly approaching the recommendations of palliative care or hospice. MMODL / IJN: [id number] /
[2022-07-06] MEDS: IOPAMIDOL CONTRAST (ORAL USE) VIAL PO PRN ×2 (07:37→08:35)
[2022-07-06] MEDS: PANTOPRAZOLE 40 MG/10 ML VIAL IV SCH ×2 (07:38→20:09)
[2022-07-06 08:58] LABS: African American GFR (CKD) 131.2 (60.0-200.0); Albumin/Globulin Ratio 0.81 (1.60-3.17); Anion Gap 9.8 mmol/L (10.00-18.00); BUN/Creat Ratio 22.33 Ratio (12.00-20.00); Blood Urea Nitrogen 13.4 mg/dL (9.0-27.0); Calcium 8.2 mg/dL (8.7-10.3); Carbon Dioxide 24.2 mmol/L (20.0-27.5); Globulin 3.7 g/dL (1.6-3.3); Non-African American GFR(CKD) 113.2 (60.0-200.0); Potassium 4.1 mmol/L (3.5-5.5); Total Bilirubin 0.3 mg/dL (0.30-1.20); Total Protein 6.7 g/dL (6.2-8.2)
[2022-07-06 09:01] LABS: HCT 20.7 % (39.6-50.0); HGB 6.6 g/dL (13.0-17.0); MCH 24.6 pg (27.0-32.0); MCHC 31.9 g/dL (32.0-37.0); MCV 77.2 fL (80.0-97.0); Mean Platelet Volume 9.5 fL (9.5-12.2); NRBC Per 100 WBC 0 /100 WBCS (0.0-0.0); Platelet Count 472 X 10*3/uL (140-440); RBC 2.68 X 10*6/uL (4.40-5.60); WBC 8.71 X 10*3/uL (4.50-10.00)
[2022-07-06 09:18] LABS: Basophils # (A) 0.08 X 10*3/uL (0.00-0.10); Basophils % (A) 0.9 %; Eosinophils # (A) 0.37 X 10*3/uL (0.04-0.35); Eosinophils % (A) 4.2 %; Hypochromasia (M) 2+; Immature Grans, Automated 0.5 %; Lymphocytes # (A) 1.52 X 10*3/uL (0.90-5.00); Lymphocytes % (A) 17.5 %; Monocytes % (A) 4.6 %; Neutrophils % (A) 72.3 %; Rouleaux PRESENT
--- NOTE | 2022-07-06 10:35 | P.PN ---
Subjective Progress Note Date: 07/06/22 Principal diagnosis: Stage IV esophageal cancer, suspected upper GI bleed, acute dehydration Patient seen and examined at bedside. He tells me his abdominal pains have improved modestly today. No reports of nausea or emesis overnight. No bowel movement yet, denies flatus. Voiding without issue. Energy level is slightly improved but paradoxically has a hemoglobin has trended down a bit to 6.6. He is presently awaiting one unit packed red blood cells. Computed tomography scan of the abdomen and pelvis was just obtained, the official report is pending, images were reviewed. It shows that his gastrostomy tubes in good position. The proximal corpus and gastric fundus are quite thickened up and encroaching on the GE junction implying advanced cancer as previously described. There is some irregularity of the liver parenchyma about the gallbladder and inferior margin of the right lower lobe. Oral contrast is passed to the proximal jejunum, no signs of gastric outlet obstruction. There is significant fecal retention throughout. No free air, no free fluid. 2 feeds remain on hold. Patient was started on scheduled IV Reglan yesterday. Objective - Vital Signs Vital signs: Vital Signs Temp 98.9 F 07/06/22 04:04 Pulse 74 07/06/22 04:04 Resp 18 07/06/22 04:04 BP 103/68 07/06/22 04:04 Pulse Ox 97 07/06/22 04:04 FiO2 Intake & Output 07/05/22 07/06/22 07/06/22 18:59 06:59 18:59 Intake Total 930 Output Total 200 400 Balance -200 530 Weight 67.5 kg Intake: Intake, IV Titration 900 Amount Sodium Chloride 0.9% 1, 900 000 ml @ 75 mls/hr IV . [id number] [facility] Rx#:[id number] Oral 30 Output: Urine 200 400 Other: Voiding Method Urinal Urinal Urinal - Constitutional General appearance: Present: no acute distress, thin - EENT Eyes: Present: EOMI, PERRLA ENT: Present: NA/AT - Respiratory Respiratory: bilateral: CTA - Cardiovascular Rhythm: regular - Gastrointestinal Gastrointestinal Comment(s): Abdomen is soft, nontender palpation, no guarding rebound or distention. Exam is improved compared to yesterday. No evidence of bleeding seen at gastrostomy tube. - Neurologic Neurologic: Present: CNII-XII intact - Musculoskeletal Musculoskeletal Comment(s): Energy level and generalized weakness are slightly improved compared to yesterday. Musculoskeletal: Present: generalized weakness - Labs CBC & Chem 7: 07/06/22 05:12 07/06/22 05:12 Labs: Abnormal Lab Results - Last 24 Hours (Table) 07/03/22 07/06/22 07/06/22 Range/Units 13:31 05:12 05:12 RBC 2.68 L (4.40-5.60) X 10*6/uL Hgb 6.6 L* (13.0-17.0) g/dL Hct 20.7 L (39.6-50.0) % MCV 77.2 L (80.0-97.0) fL MCH 24.6 L (27.0-32.0) pg MCHC 31.9 L (32.0-37.0) g/dL RDW 19.0 H (11.5-14.5) % Plt Count 472 H (140-440) X 10*3/uL Plt Count Comment INCREASED A Eosinophils # 0.37 H (0.04-0.35) X 10*3/uL Sodium 131 L (135-145) mmol/L Anion Gap 9.80 L (10.00-18.00) mmol/L BUN/Creatinine Ratio 22.33 H (12.00-20.00) Ratio Calcium 8.2 L (8.7-10.3) mg/dL Alkaline Phosphatase 293 H (41-126) U/L Albumin 3.0 L (3.8-4.9) g/dL Globulin 3.7 H (1.6-3.3) g/dL Albumin/Globulin Ratio 0.81 L (1.60-3.17) g/dL Crossmatch See Detail - Imaging and Cardiology CT scan - abdomen: image reviewed CT scan - pelvis: image reviewed Assessment and Plan Assessment: 56-year-old gentleman with a history of a would appear to be 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 Reports of intermittent signs of bleeding at the gastrostomy tube, no evidence thereof seen today. Would appear to be issues with intolerance to tube feeding, suspect element of delayed gastric emptying. Fecal retention and constipation. No evidence of small bowel obstruction seen on CT. Microcytic, hypochromic anemia, acute on chronic. Patient has a hemodynamically stable appearance at present but hemoglobin gradually dwindling down on today's labs. Not much lower than his historical values over the past 2 months. Thrombocytosis, suspect relating to underlying malignancy. Presenting lethargy, fatigue and chills, improved with IV fluids. Suspect an element of dehydration with hyponatremia and elevation of serum creatinine, similarly improving. Plan: Awaiting 1 unit of PRBCs. Revisit the potential upper endoscopy with the patient, he remains of the opinion that he wants to avoid any procedures. Will add Dulcolax suppository as necessary in addition to Reglan for prokinetic. If no success would suggest warm soapsuds enema. Daily labs. May potentially benefit from palliative radiation, will need to follow-up on an outpatient basis with medical and radiation oncology for clarification of goals of care and prognosis. Time with Patient: Greater than 30
--- NOTE | 2022-07-06 11:39 | CT ---
EXAMINATION TYPE: CT abdomen pelvis w con DATE OF EXAM: 07/06/2022 COMPARISON: CT abdomen and pelvis June 15, 2022 and older studies HISTORY: Advanced Esophageal Cancer with nausea and vomiting. CT DLP: 660 mGycm, Automated Exposure Control for Dose Reduction was Utilized. CONTRAST: CT scan of the abdomen and pelvis is performed with oral and with IV Contrast, patient injected with 70 mL of Isovue 300. FINDINGS: LUNG BASES: Trace bilateral pleural effusions improved from most recent prior with associated elinor sive atelectasis. LIVER/GB: Persistent markedly abnormal gallbladder with small lumen and severe surrounding wall thick ening. Heterogeneous hypodense irregular lesion posterior right hepatic lobe measuring 3.7 cm long axis axia l image 27 is more irregular and larger in size from June 10 exam. Trace anterior curvilinear hypodensity probable subcapsular fluid right hepatic lobe axial image 22 i s smaller in size from most recent CT. PANCREAS: No significant abnormality is seen. SPLEEN: No significant abnormality is seen. ADRENALS: No significant abnormality is seen. KIDNEYS: Occasional simple-appearing thin-walled cysts throughout both kidneys redemonstrated. BOWEL: PEG tube remains in place. Small hiatal hernia with wall thickening is present extending into the gastric fundus. Findings suspicious for neoplastic involvement. Oral contrast reaches distal jeju nal level in the left abdomen. No suspicious small or large bowel dilatation. Moderate fecal prominen ce in the sigmoid rectal colon. PROSTATE/SEMINAL VESICLES: Mildly enlarged prostate gland redemonstrated. LYMPH NODES: No greater than 1cm abdominal or pelvic lymph nodes are appreciated. OSSEOUS STRUCTURES: Persistent lytic lesion right sacrum coronal image 64 with adjacent lytic and scl erotic lesion in the right iliac bone redemonstrated. Expansile destructive lesion posterior left 11t h rib redemonstrated. Multilevel spurring in the thoracolumbar spine. OTHER: No significant additional abnormality is seen. IMPRESSION: Persistent distal esophageal neoplasm thought present with proximal gastric extension. No bowel obstruction. Moderate distal colonic fecal stasis is now present. Osseous metastatic disease r edemonstrated and stable. Gallbladder findings could reflect infectious process versus metastatic dis ease versus primary neoplasm. Liver findings likely reflect metastatic disease but infectious process is not entirely excluded. Strict clinical correlation advised. No new suspicious finding to account for patient's symptoms of nausea and vomiting.
[2022-07-06] MEDS: bisacodyL 10 MG SUPP RECTAL SCH (12:02)
[2022-07-06] MEDS ORDERED: HYDROcodone/APAP 10-325MG 1 EACH TAB PO PRN (13:37)
[2022-07-06] MEDS ORDERED: MAGNESIUM HYDROXIDE 2,400 MG/10 ML CUP PO STA (13:39)
[2022-07-06] MEDS ORDERED: MAGNESIUM HYDROXIDE 2,400 MG/10 ML CUP PO PRN (13:39)
--- NOTE | 2022-07-06 15:24 | P.CONS ---
History of Present Illness - Reason for Consult Consult date: 07/06/22 malignancy follow-up Requesting physician: Jeff Fine - Chief Complaint blood and PEG tube, hemataemesis - History of Present Illness Mister Jovel is a very pleasant patient of Dr. Pabon of follow-up, with PMH significant for asthma and HTN, who was worked up May 2022 for presenting c/o dysphagia and weight loss 2 months, CT AP 05/14/22 noted circumferential thickening of the esophagus and gastric cardia extending into the gastric lumen, he was also noted to have a destructive soft tissue lesion left 11th rib 3.4 x 2.5 x 2.3 cm. Bone metastases noted in the right iliac, L1 vertebra and to sacral lesions, retroperitoneal LAD measuring 3.8 x 1.6 noted. EGD 05/27/22 large ulcerative mass in the GEJ with biopsies of the mass and the stomach consistent with moderately differentiated adenocarcinoma, HER2 neg by FISH. he was scheduled outpatient but unfortunately readmitted as he had hemoptysis, felt more to be bleeding from the esophagus and esophageal mass. He required 2 units PRBCs, had spontaneous resolution of his bleeding. CT chest on 06/09/22 did not note evidence of pulmonary metastases. He had PEG tube placed on 06/13/22, mediport on 06/19/22. He was recently discharged. He had started his tube feedings and was seen in the office 06/25. He had his first cycle of modified FOLFOX 6 last week. Patient was sent to the hospital by Nursing who observed blood in the PEG tube, patient reported hematamesis 1 the night before the pump came off. Patient denied fevers, oral irritation, chest pain, difficulty in breathing, new or unusual cough, he has not had a bowel movement in about a week and a half. He does have some bloating of the abdomen, feeds himself via bolus at home, he reports that he is been having pain with feeds, his abdomen is much more tender at the PEG insertion site. Patient can tolerate some liquids but, does end up regurgitating some of it as well. No dysuria, hematuria, unusual lower extremity swelling. Patient is getting progressively weaker, currently only able to ambulate short distances with assistive device. He does have pain that runs across the upper portion of the abdomen, fentanyl was prescribed to him last week but, he was unable to pick it up. Aggressive bowel regimen was also ordered last week. Review of Systems 10 point review of systems is negative except as stated in HPI Past Medical History Past Medical History: Asthma, Cancer, Hypertension Additional Past Medical History / Comment(s): Recent difficulty swallowing/esophageal stricture. esophageal carcinoma History of Any Multi-Drug Resistant Organisms: None Reported Additional Past Surgical History / Comment(s): PEG tube insertion, right subclavian port for chemo Past Anesthesia/Blood Transfusion Reactions: No Reported Reaction Additional Past Anesthesia/Blood Transfusion Reaction / Comm: Pt has never had surgery/anesthesia. Past Psychological History: No Psychological Hx Reported Additional Psychological History / Comment(s): Pt resides alone. He uses no assitive device. He does not drive, he walks. Smoking Status: Never smoker Past Alcohol Use History: None Reported Past Drug Use History: None Reported - Past Family History Father Family Medical History: No Reported History Additional Family Medical History / Comment(s): Father is healthy Mother Family Medical History: Cancer Additional Family Medical History / Comment(s): Mother has a trach/pt cannot recall reason. Brother(s) Family Medical History: Cancer Additional Family Medical History / Comment(s): Brother has colostomy, pt cannot recall reason. Medications and Allergies Home Medications Medication Instructions Recorded Confirmed Type Chlorthalidone [Hygroton] 25 mg PEG/G-TUBE DAILY 09/11/21 07/03/22 History Losartan Potassium [Cozaar] 100 mg PEG/G-TUBE DAILY 09/11/21 07/03/22 History Montelukast [Singulair] 10 mg PEG/G-TUBE DAILY 09/11/21 07/03/22 History amLODIPine [Norvasc] 10 mg PEG/G-TUBE DAILY 09/11/21 07/03/22 History Albuterol Sulfate [Proair Hfa] 1 puff INHALATION RT-QID PRN 05/26/22 07/03/22 History hydrALAZINE HCL [Apresoline] 10 mg PEG/G-TUBE DAILY 05/26/22 07/03/22 History Lidocaine-Prilocaine Cream [Emla 1 applic TOPICAL DIRECTED PRN 06/22/22 07/03/22 Rx Cream 2.5%/2.5%] #30 gm Atorvastatin [Lipitor] 40 mg PEG/G-TUBE DIRECTED 07/03/22 07/03/22 History HYDROcodone/APAP 10-325MG [Slemp 1 tab PEG/G-TUBE Q4HR PRN 07/03/22 07/03/22 History 10-325] Ondansetron Odt [Zofran Odt] 8 mg PO Q8HR PRN 07/03/22 07/03/22 History Sennosides/Docusate Sodium [Senna 2 cap PEG/G-TUBE BID 07/03/22 07/03/22 History Plus 8.6-50 mg Softgel] Tamsulosin [Flomax] 0.4 mg PEG/G-TUBE DIRECTED 07/03/22 07/03/22 History fentaNYL 12MCG/HR PATCH [Duragesic 1 patch TRANSDERM Q72H 07/03/22 07/03/22 History 12MCG/HR] Allergies Allergy/AdvReac Type Severity Reaction Status Date / Time No Known Allergies Allergy Verified 07/03/22 11:46 Physical Exam Vitals: Vital Signs Temp Pulse Resp BP Pulse Ox 07/06/22 04:04 98.9 F 74 18 103/68 97 07/05/22 21:00 98.0 F 70 18 100/60 99 07/05/22 20:00 18 07/05/22 11:54 98.7 F 72 18 110/71 98 Intake and Output 07/05/22 07/06/22 07/06/22 22:59 06:59 14:59 Intake Total 930 Output Total 200 400 Balance -200 530 Intake: Intake, IV Titration 900 Amount Sodium Chloride 0.9% 1, 900 000 ml @ 75 mls/hr IV . [id number] [facility] Rx#:[id number] Oral 30 Output: Urine 200 400 Other: Voiding Method Urinal Urinal Weight 67.5 kg - Constitutional General appearance: average body habitus, cooperative, morbidly obese - EENT dry mucous membranes Eyes: anicteric sclerae, EOMI ENT: hearing grossly normal - Neck Neck: no lymphadenopathy - Respiratory Respiratory: bilateral: CTA - Cardiovascular Rhythm: regularly irregular Heart sounds: normal: S1, S2 leg Peripheral Edema: bilateral: None - Gastrointestinal General gastrointestinal: no absent bowel sounds, no decreased bowel sounds, distended, no hepatomegaly, no hyperactive bowel sounds, normal bowel sounds, no organomegaly, no rigid, no scaphoid, soft, no splenomegaly, tenderness (especially around PEG insertion site), no umbilical hernia, no ventral hernia - Neurologic Neurologic: CNII-XII intact (grossly) - Musculoskeletal Musculoskeletal: generalized weakness - Psychiatric Psychiatric: A&O x's 3, appropriate affect, intact judgment & insight Results CBC & Chem 7: 07/06/22 05:12 07/06/22 05:12 Assessment and Plan (1) UGIB (upper gastrointestinal bleed) Current Visit: Yes Status: Acute Priority: High Code(s): K92.2 - GASTROINTESTINAL HEMORRHAGE, UNSPECIFIED SNOMED Code(s): 69299548 (2) Adenocarcinoma of gastroesophageal junction Current Visit: Yes Status: Acute Priority: High Code(s): C16.0 - MALIGNANT NEOPLASM OF CARDIA SNOMED Code(s): 251905047 (3) Microcytic anemia Current Visit: Yes Status: Acute Priority: Medium Code(s): D50.9 - IRON DEFICIENCY ANEMIA, UNSPECIFIED SNOMED Code(s): 883637446 Plan: Blood in the PEG tube, hematoemesis. No bleeding so far today. Patient also complaining of significant pain at the PEG insertion site. PEG feedings on hold. Pending CT abdomen and pelvis. Anemia. Workup done at his visit last month around mid May. He did receive parenteral iron. This would be the appropriate timing to reassess iron studies, labs ordered. Patient was started on fentanyl last week at the office visit but, he was unable to pick the medication. This has been started inpatient. Case was discussed with Primary Oncologist. Based on the patient's symptoms and acute bleeding (this has happened previously) Radiation Oncology has been consulted. The case was discussed with them. Recommendations pending. attests: I seen and examined patient, performed H&P, developed impression a nd plan of care. Discussed with dictator. Agree with documentation, dictated as a scribe
[2022-07-06] MEDS: SENNOSIDES-DOCUSATE SODIUM 1 EACH TAB PO SCH ×2 (17:30→20:03)
[2022-07-07] MEDS: METOCLOPRAMIDE 5 MG/ML 2 ML VIAL IVP SCH ×4 (00:08→18:15)
[2022-07-07] MEDS: HYDROmorphone 0.5 MG/0.5 ML SYRINGE IVP PRN ×3 (00:41→22:59)
[2022-07-07 01:00] LABS: % Iron Saturation 10.92 (15.00-50.00)
[2022-07-07] MEDS: PANTOPRAZOLE 40 MG/10 ML VIAL IV SCH ×2 (08:31→22:50)
[2022-07-07] MEDS: SENNOSIDES-DOCUSATE SODIUM 1 EACH TAB PO SCH ×2 (08:31→22:50)
[2022-07-07 09:33] LABS: Basophils # (A) 0.06 X 10*3/uL (0.00-0.10); Basophils % (A) 0.8 %; Eosinophils % (A) 5.2 %; HCT 23.3 % (39.6-50.0); HGB 7.6 g/dL (13.0-17.0); Immature Grans, Automated 0.7 %; Lymphocytes # (A) 1.61 X 10*3/uL (0.90-5.00); MCH 25.5 pg (27.0-32.0); MCHC 32.6 g/dL (32.0-37.0); MCV 78.2 fL (80.0-97.0); Mean Platelet Volume 9.5 fL (9.5-12.2); Monocytes # (A) 0.63 X 10*3/uL (0.20-1.00); Monocytes % (A) 8.2 %; NRBC Per 100 WBC 0 /100 WBCS (0.0-0.0); Neutrophils # (A) 4.92 X 10*3/uL (1.80-7.70); Neutrophils % (A) 64.1 %; Platelet Count 443 X 10*3/uL (140-440); RBC 2.98 X 10*6/uL (4.40-5.60); WBC 7.67 X 10*3/uL (4.50-10.00)
[2022-07-07 10:28] LABS: African American GFR (CKD) 135.6 (60.0-200.0); Albumin 2.9 g/dL (3.8-4.9); Albumin/Globulin Ratio 0.83 (1.60-3.17); Anion Gap 12.3 mmol/L (10.00-18.00); BUN/Creat Ratio 17.58 Ratio (12.00-20.00); Blood Urea Nitrogen 9.7 mg/dL (9.0-27.0); Carbon Dioxide 22.9 mmol/L (20.0-27.5); Globulin 3.6 g/dL (1.6-3.3); Total Bilirubin 0.7 mg/dL (0.30-1.20); Total Protein 6.5 g/dL (6.2-8.2)
[2022-07-07] MEDS: bisacodyL 10 MG SUPP RECTAL SCH (11:40)
--- NOTE | 2022-07-07 13:06 | P.CONS ---
History of Present Illness - Reason for Consult Consult date: 07/07/22 Bleeding in setting of esophageal cancer Requesting physician: Yuniel Lock - Chief Complaint "I feel better today" - History of Present Illness Mr. Jovel is a 56-year-old male with metastatic esophageal cancer with diffuse osseous involvement. He presents with esophageal bleeding. His pertinent history begins in 05/2022 with dysphagia and abdominal pain. He underwent CT abdomen on 05/14/2022 which demonstrated GEJ thickening extending into the gastric cardia. He underwent EGD per Dr. Foster on 05/27/2022 which demonstrated a friable exophytic mass just proximal to the GE junction as well as a larger ulcerative mass present in the proximal portion of the stomach. Biopsy of the esophagus demonstrated upper gastrointestinal intestinal-type moderately differentiated adenocarcinoma. Biopsy of the stomach demonstrated focal features of favored invasive adenocarcinoma. CT chest/abdomen/pelvis on 06/10/2022 demonstrated irregular mass at the GE junction, as well as osseous disease in the T2 vertebral body, S2 vertebra, right ilium, and posterior left 11th rib. He has undergone 1 cycle of FOLFOX. Due to blood noted in his PEG tube and an episode of hematemesis, he was directed to the [facility] by medical oncology. Upon presentation, his hemoglobin was 8.2. It did subsequently decrease to 6.6 and he received 1 unit pRBCs. He did have a BM yesterday per RN (melena) with resolution of abdominal pain. Tube feedings have been resumed and he is on clear diet. Today, he notes that his abdominal pain has resolved and he is feeling better. Pain is currently 0/10. There is no longer bleeding from his PEG tube and he denies hematemesis though he did have an episode of melena ysterday. He has no pacemaker and has never received radiation therapy. He lives in [place]. Review of Systems All systems: negative Constitutional: Reports lethargy Gastrointestinal: Reports melena Past Medical History Past Medical History: Asthma, Cancer, Hypertension Additional Past Medical History / Comment(s): Recent difficulty swallowing/esophageal stricture. esophageal carcinoma History of Any Multi-Drug Resistant Organisms: None Reported Past Surgical History: No Surgical Hx Reported Additional Past Surgical History / Comment(s): PEG tube insertion, right subclavian port for chemo Past Anesthesia/Blood Transfusion Reactions: No Reported Reaction Additional Past Anesthesia/Blood Transfusion Reaction / Comm: Pt has never had surgery/anesthesia. Past Psychological History: No Psychological Hx Reported Additional Psychological History / Comment(s): Pt resides alone. He uses no assitive device. He does not drive, he walks. Smoking Status: Never smoker Past Alcohol Use History: None Reported Past Drug Use History: None Reported - Past Family History Father Family Medical History: No Reported History Additional Family Medical History / Comment(s): Father is healthy Mother Family Medical History: Cancer Additional Family Medical History / Comment(s): Mother has a trach/pt cannot recall reason. Brother(s) Family Medical History: Cancer Additional Family Medical History / Comment(s): Brother has colostomy, pt cannot recall reason. Medications and Allergies Home Medications Medication Instructions Recorded Confirmed Type Chlorthalidone [Hygroton] 25 mg PEG/G-TUBE DAILY 09/11/21 07/03/22 History Losartan Potassium [Cozaar] 100 mg PEG/G-TUBE DAILY 09/11/21 07/03/22 History Montelukast [Singulair] 10 mg PEG/G-TUBE DAILY 09/11/21 07/03/22 History amLODIPine [Norvasc] 10 mg PEG/G-TUBE DAILY 09/11/21 07/03/22 History Albuterol Sulfate [Proair Hfa] 1 puff INHALATION RT-QID PRN 05/26/22 07/03/22 History hydrALAZINE HCL [Apresoline] 10 mg PEG/G-TUBE DAILY 05/26/22 07/03/22 History Lidocaine-Prilocaine Cream [Emla 1 applic TOPICAL DIRECTED PRN 06/22/22 07/03/22 Rx Cream 2.5%/2.5%] #30 gm Atorvastatin [Lipitor] 40 mg PEG/G-TUBE DIRECTED 07/03/22 07/03/22 History HYDROcodone/APAP 10-325MG [[place] 1 tab PEG/G-TUBE Q4HR PRN 07/03/22 07/03/22 History 10-325] Ondansetron Odt [Zofran Odt] 8 mg PO Q8HR PRN 07/03/22 07/03/22 History Sennosides/Docusate Sodium [Senna 2 cap PEG/G-TUBE BID 07/03/22 07/03/22 History Plus 8.6-50 mg Softgel] Tamsulosin [Flomax] 0.4 mg PEG/G-TUBE DIRECTED 07/03/22 07/03/22 History fentaNYL 12MCG/HR PATCH [Duragesic 1 patch TRANSDERM Q72H 07/03/22 07/03/22 History 12MCG/HR] Allergies Allergy/AdvReac Type Severity Reaction Status Date / Time No Known Allergies Allergy Verified 07/03/22 11:46 Physical Exam Vitals: Vital Signs Temp Pulse Pulse Resp BP BP Pulse Ox 07/07/22 11:37 98.1 F 76 16 116/75 99 07/07/22 08:22 98.7 F 79 16 106/69 07/07/22 04:37 98.4 F 75 20 103/68 100 07/06/22 20:00 16 07/06/22 19:13 98.5 F 78 16 120/71 99 07/06/22 13:19 98.6 F 78 14 121/78 100 Intake and Output 07/06/22 07/07/22 07/07/22 22:59 06:59 14:59 Intake Total 1020 Output Total 500 400 4 Balance -500 620 -4 Intake: Intake, IV Titration 900 Amount Sodium Chloride 0.9% 1, 900 000 ml @ 75 mls/hr IV . [id number] [facility] Rx#:[id number] Oral 120 Output: Urine 500 400 3 Stool 1 Other: Voiding Method Urinal Urinal # Bowel Movements 1 Weight 65 kg - Constitutional General appearance: thin - EENT conjunctival pallor - Respiratory unlabored respirations - Gastrointestinal no tenderness to palpation, PEG insertion site noted and clean/dry/intact without bleeding - Psychiatric Psychiatric: appropriate affect, intact judgment & insight Results CBC & Chem 7: 07/07/22 05:56 07/07/22 05:56 Labs: Abnormal Lab Results - Last 24 Hours (Table) 07/03/22 07/06/22 07/07/22 Range/Units 13:31 05:12 05:56 RBC 2.98 L (4.40-5.60) X 10*6/uL Hgb 7.6 L (13.0-17.0) g/dL Hct 23.3 L (39.6-50.0) % MCV 78.2 L (80.0-97.0) fL MCH 25.5 L (27.0-32.0) pg RDW 19.0 H (11.5-14.5) % Plt Count 443 H (140-440) X 10*3/uL Immature Gran # 0.05 H (0.00-0.04) X 10*3/uL Eosinophils # 0.40 H (0.04-0.35) X 10*3/uL Sodium (135-145) mmol/L Chloride (96-109) mmol/L Calcium (8.7-10.3) mg/dL Iron 26 L (65-175) ug/dL % Saturation 10.92 L (15.00-50.00) Transferrin 172.0 L (204.0-354.0) mg/dL Ferritin 536.0 H (22.0-322.0) ng/mL Alkaline Phosphatase (41-126) U/L Albumin (3.8-4.9) g/dL Globulin (1.6-3.3) g/dL Albumin/Globulin Ratio (1.60-3.17) g/dL Crossmatch See Detail 07/07/22 Range/Units 05:56 RBC (4.40-5.60) X 10*6/uL Hgb (13.0-17.0) g/dL Hct (39.6-50.0) % MCV (80.0-97.0) fL MCH (27.0-32.0) pg RDW (11.5-14.5) % Plt Count (140-440) X 10*3/uL Immature Gran # (0.00-0.04) X 10*3/uL Eosinophils # (0.04-0.35) X 10*3/uL Sodium 130 L (135-145) mmol/L Chloride 95 L (96-109) mmol/L Calcium 8.0 L (8.7-10.3) mg/dL Iron (65-175) ug/dL % Saturation (15.00-50.00) Transferrin (204.0-354.0) mg/dL Ferritin (22.0-322.0) ng/mL Alkaline Phosphatase 307 H (41-126) U/L Albumin 2.9 L (3.8-4.9) g/dL Globulin 3.6 H (1.6-3.3) g/dL Albumin/Globulin Ratio 0.83 L (1.60-3.17) g/dL Crossmatch Assessment and Plan Assessment: Mr. Jovel is a 56-year-old male with metastatic esophageal cancer with diffuse osseous involvement. Plan: The patient has active bleeding from his esophageal cancer. He is a good candidate for palliative radiation therapy to reduce bleeding, dysphagia, and pain. He is motivated for this approach. I explained that treatment would be preceded by a CT simulation. Treatments will take place Mondays-Fridays and span approximately 2 weeks. I explained potential acute effects of treatment, including but not limited to fatigue, nausea, and vomiting. I also explained potential late effects, including but not limited to the rare risk of second malignancy. He will undergo CT simulation today with treatment to begin tomorrow. I spent 60 minutes with the patient and in coordination of care. Barrington Urbina MD Radiation Oncology Time with Patient: Greater than 30
--- NOTE | 2022-07-07 13:10 | P.PN ---
Progress Note - Text Progress Note Date: 07/07/22 Patient presently off the floor for initial radiation treatment, hopefully this will have some palliative effect. He had an appropriate response to 1 unit PRBCs on follow-up labs today. Has been advanced to clear liquids. Patient had a large bowel movement over the past 24 hours, pain seems to be improving quite a bit per nursing report. Continues to have a hemodynamically stable appearance on vital signs. We'll reassess at your request.
[2022-07-07] MEDS: SODIUM CHLORIDE 0.9% 1,000 ML IV SCH (14:04)
--- NOTE | 2022-07-07 17:43 | P.PN ---
Subjective Progress Note Date: 07/07/22 Principal diagnosis: Metastatic esophageal adenocarcinoma. Friable tumor leading to upper GI bleeding In follow-up today patient reports 2 large bowel movements, they are dark, he denies any bright red blood or maroon stool. His abdominal discomfort is improved, tube feedings have resumed at 20 cc/h for now, with decent tolerance, no fevers, nausea. Objective - Vital Signs Vital signs: Vital Signs Temp 98.1 F 07/07/22 11:37 Pulse 76 07/07/22 11:37 Resp 16 07/07/22 11:37 BP 116/75 07/07/22 11:37 Pulse Ox 99 07/07/22 11:37 FiO2 Intake & Output 07/06/22 07/07/22 07/07/22 18:59 06:59 18:59 Intake Total 310 1020 Output Total 900 204 Balance 310 120 -204 Weight 65 kg Intake: Intake, IV Titration 900 Amount Sodium Chloride 0.9% 1, 900 000 ml @ 75 mls/hr IV . [id number] [facility] Rx#:[id number] Oral 120 Blood Product 310 Rc As-1 Unit 310 [id number] Output: Urine 900 203 Stool 1 Other: Voiding Method Urinal Urinal Urinal # Bowel Movements 1 - Constitutional General appearance: Present: cooperative, no acute distress, thin - EENT Eyes: Present: anicteric sclerae, EOMI ENT: Present: hearing grossly normal - Respiratory Respiratory: bilateral: CTA - Cardiovascular Rhythm: regular Heart sounds: normal: S1, S2 Abnormal Heart Sounds: Absent: systolic murmur, diastolic murmur, rub, S3 Gallop, S4 Gallop, click, other - Peripheral edema leg Peripheral Edema: bilateral: Trace - Gastrointestinal General gastrointestinal: Present: normal bowel sounds, soft. Absent: absent bowel sounds, decreased bowel sounds, distended, hepatomegaly, hyperactive bowel sounds, organomegaly, rigid, scaphoid, splenomegaly, tenderness, umbilical hernia, ventral hernia - Neurologic Neurologic: Present: CNII-XII intact - Musculoskeletal Musculoskeletal: Present: generalized weakness - Psychiatric Psychiatric: Present: A&O x's 3, appropriate affect, intact judgment & insight - Labs CBC & Chem 7: 07/07/22 05:56 07/07/22 05:56 Labs: Abnormal Lab Results - Last 24 Hours (Table) 09/07/07/22 07/07/22 Range/Units 05:12 05:56 05:56 RBC 2.98 L (4.40-5.60) X 10*6/uL Hgb 7.6 L (13.0-17.0) g/dL Hct 23.3 L (39.6-50.0) % MCV 78.2 L (80.0-97.0) fL MCH 25.5 L (27.0-32.0) pg RDW 19.0 H (11.5-14.5) % Plt Count 443 H (140-440) X 10*3/uL Immature Gran # 0.05 H (0.00-0.04) X 10*3/uL Eosinophils # 0.40 H (0.04-0.35) X 10*3/uL Sodium 130 L (135-145) mmol/L Chloride 95 L (96-109) mmol/L Calcium 8.0 L (8.7-10.3) mg/dL Iron 26 L (65-175) ug/dL % Saturation 10.92 L (15.00-50.00) Transferrin 172.0 L (204.0-354.0) mg/dL Ferritin 536.0 H (22.0-322.0) ng/mL Alkaline Phosphatase 307 H (41-126) U/L Albumin 2.9 L (3.8-4.9) g/dL Globulin 3.6 H (1.6-3.3) g/dL Albumin/Globulin Ratio 0.83 L (1.60-3.17) g/dL - Imaging and Cardiology CT scan - abdomen: report reviewed CT scan - pelvis: report reviewed Assessment and Plan (1) UGIB (upper gastrointestinal bleed) Current Visit: Yes Status: Acute Priority: High Code(s): K92.2 - GASTROINTESTINAL HEMORRHAGE, UNSPECIFIED SNOMED Code(s): 23460919 (2) Adenocarcinoma of gastroesophageal junction Current Visit: Yes Status: Acute Priority: High Code(s): C16.0 - MALIGNANT NEOPLASM OF CARDIA SNOMED Code(s): 406546516 (3) Microcytic anemia Current Visit: Yes Status: Acute Priority: Medium Code(s): D50.9 - IRON DEFICIENCY ANEMIA, UNSPECIFIED SNOMED Code(s): 476763219 Plan: Blood in the PEG tube, hematemesis. No vomiting or hematemesis today. Pain at the PEG insertion site is much improved after BM. PEG feedings resumed. CT abdomen and pelvis showed fecal stasis, known malignancy in the esophagus into the stomach. Anemia. Patient did receive 1 unit of blood yesterday for a hemoglobin of 6.8. Anemia workup was done at his visit last month around mid May. He did receive parenteral iron. This would be the appropriate timing to reassess iron studies, labs ordered. Patient was started on fentanyl last week at the office visit but, he was unable to pick the medication. This has been started inpatient. Patient is reporting good pain control. Continue. Medications for prevention of narcotic-induced constipation, continue. Case was discussed with Primary Oncologist. Based on the patient's symptoms and acute bleeding (this has happened previously) Radiation Oncology has been consulted. The case was discussed with them. Recommendations pending.
--- NOTE | 2022-07-07 20:54 | PN ---
PROGRESS NOTE CHIEF COMPLAINT: Metastatic carcinoma of the esophagus. HISTORY OF PRESENT ILLNESS: This gentleman continues to struggle. He remains quite depressed and has been referred to Oncology to see if anything further can be done in short term. PHYSICAL EXAMINATION: LUNGS: Breath sounds are heard bilaterally. CARDIAC: Exam is normal. ABDOMEN: Tender and firm in the upper aspects. PEG tube is in place and there is no obvious bleeding at this time. IMPRESSION: 1. Gastrointestinal blood loss from esophageal tumor. 2. Blood-loss anemia. 3. Advanced and metastatic carcinoma of the esophagus. PLAN: Work on a discharge plan. Prognosis is poor and he is not tolerating PEG tube feedings and it is unlikely that he will tolerate significant radiation and chemotherapy. MMODL / IJN: [id number] /
[2022-07-08] MEDS: METOCLOPRAMIDE 5 MG/ML 2 ML VIAL IVP SCH ×4 (00:26→17:32)
[2022-07-08] MEDS: SODIUM CHLORIDE 0.9% 1,000 ML IV SCH ×2 (00:29→09:38)
[2022-07-08 09:05] LABS: Basophils # (A) 0.05 X 10*3/uL (0.00-0.10); Basophils % (A) 0.6 %; Eosinophils # (A) 0.57 X 10*3/uL (0.04-0.35); Eosinophils % (A) 6.8 %; HCT 24.6 % (39.6-50.0); HGB 7.9 g/dL (13.0-17.0); Immature Grans, Automated 0.7 %; Lymphocytes # (A) 1.33 X 10*3/uL (0.90-5.00); Lymphocytes % (A) 15.8 %; MCH 25.7 pg (27.0-32.0); MCHC 32.1 g/dL (32.0-37.0); MCV 80.1 fL (80.0-97.0); Mean Platelet Volume 9.4 fL (9.5-12.2); Monocytes # (A) 0.72 X 10*3/uL (0.20-1.00); Monocytes % (A) 8.6 %; NRBC Per 100 WBC 0 /100 WBCS (0.0-0.0); Neutrophils # (A) 5.68 X 10*3/uL (1.80-7.70); Neutrophils % (A) 67.5 %; Platelet Count 421 X 10*3/uL (140-440); RBC 3.07 X 10*6/uL (4.40-5.60); RDW 18.8 % (11.5-14.5); WBC 8.41 X 10*3/uL (4.50-10.00)
[2022-07-08] MEDS: HYDROmorphone 0.5 MG/0.5 ML SYRINGE IVP PRN ×2 (09:38→19:35)
[2022-07-08] MEDS: PANTOPRAZOLE 40 MG/10 ML VIAL IV SCH ×2 (09:49→22:02)
[2022-07-08] MEDS: bisacodyL 10 MG SUPP RECTAL SCH ×2 (09:49→10:13)
[2022-07-08] MEDS: SENNOSIDES-DOCUSATE SODIUM 1 EACH TAB PO SCH ×2 (09:49→22:02)
[2022-07-08 10:33] LABS: African American GFR (CKD) 141.4 (60.0-200.0); Albumin/Globulin Ratio 0.83 (1.60-3.17); BUN/Creat Ratio 14.8 Ratio (12.00-20.00); Blood Urea Nitrogen 7.4 mg/dL (9.0-27.0); Calcium 7.8 mg/dL (8.7-10.3); Globulin 3.6 g/dL (1.6-3.3); Potassium 3.9 mmol/L (3.5-5.5); Total Bilirubin 0.4 mg/dL (0.30-1.20); Total Protein 6.6 g/dL (6.2-8.2)
--- NOTE | 2022-07-08 12:12 | PN ---
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 HISTORY OF PRESENT ILLNESS: This gentleman remains very weak. Tube feedings are being reinstituted. PHYSICAL EXAMINATION: Breath sounds are diminished due to shallow respirations. Abdomen is tender. IMPRESSION: Advanced carcinoma of the distal esophagus. PLAN: Continue efforts to restore nutrition and wait for discharge plan, where he can, hopefully, receive some meaningful chemo and radiation therapy. MMODL / IJN: [id number] /
[2022-07-09] MEDS: METOCLOPRAMIDE 5 MG/ML 2 ML VIAL IVP SCH ×5 (00:39→23:46)
[2022-07-09] MEDS: SODIUM CHLORIDE 0.9% 1,000 ML IV SCH ×3 (00:43→23:46)
[2022-07-09] MEDS: HYDROmorphone 0.5 MG/0.5 ML SYRINGE IVP PRN ×3 (04:44→17:53)
[2022-07-09] MEDS: bisacodyL 10 MG SUPP RECTAL SCH (07:51)
[2022-07-09] MEDS: SENNOSIDES-DOCUSATE SODIUM 1 EACH TAB PO SCH ×2 (07:51→20:14)
[2022-07-09] MEDS: PANTOPRAZOLE 40 MG/10 ML VIAL IV SCH ×2 (07:51→20:14)
--- NOTE | 2022-07-09 10:25 | P.PN ---
Subjective Progress Note Date: 07/08/22 Principal diagnosis: Metastatic esophageal adenocarcinoma. Friable tumor leading to upper GI bleeding In follow-up today patient tube feed is off for high residuals, he denies N,V, abdominal discomfort is stable, no fevers, cough, nausea. Objective - Vital Signs Vital signs: Vital Signs Temp 98.7 F 07/08/22 11:03 Pulse 91 07/08/22 11:03 Resp 16 07/08/22 11:03 BP 119/76 07/08/22 11:03 Pulse Ox 100 07/08/22 11:03 FiO2 Intake & Output 07/07/22 07/08/22 07/08/22 18:59 06:59 18:59 Output Total 206 301 Balance -206 -301 Weight 63 kg 63 kg Output: Urine 203 300 Stool 3 1 Other: Voiding Method Urinal Urinal - Constitutional General appearance: Present: average body habitus, cooperative, no acute distress - EENT Eyes: Present: anicteric sclerae, EOMI ENT: Present: hearing grossly normal - Respiratory Respiratory: bilateral: CTA - Cardiovascular Heart sounds: normal: S1, S2 - Gastrointestinal General gastrointestinal: Present: normal bowel sounds, soft, tenderness - Neurologic Neurologic: Present: CNII-XII intact - Musculoskeletal Musculoskeletal: Present: generalized weakness - Psychiatric Psychiatric: Present: A&O x's 3, appropriate affect, intact judgment & insight - Labs CBC & Chem 7: 07/08/22 04:42 07/08/22 04:42 Labs: Abnormal Lab Results - Last 24 Hours (Table) 07/08/22 07/08/22 Range/Units 04:42 04:42 RBC 3.07 L (4.40-5.60) X 10*6/uL Hgb 7.9 L (13.0-17.0) g/dL Hct 24.6 L (39.6-50.0) % MCH 25.7 L (27.0-32.0) pg RDW 18.8 H (11.5-14.5) % MPV 9.4 L (9.5-12.2) fL Immature Gran # 0.06 H (0.00-0.04) X 10*3/uL Eosinophils # 0.57 H (0.04-0.35) X 10*3/uL Sodium 129 L (135-145) mmol/L Chloride 94 L (96-109) mmol/L BUN 7.4 L (9.0-27.0) mg/dL Creatinine 0.5 L (0.6-1.5) mg/dL Calcium 7.8 L (8.7-10.3) mg/dL Alkaline Phosphatase 300 H (41-126) U/L Albumin 3.0 L (3.8-4.9) g/dL Globulin 3.6 H (1.6-3.3) g/dL Albumin/Globulin Ratio 0.83 L (1.60-3.17) g/dL Assessment and Plan (1) UGIB (upper gastrointestinal bleed) Current Visit: Yes Status: Acute Priority: High Code(s): K92.2 - GASTROINTESTINAL HEMORRHAGE, UNSPECIFIED SNOMED Code(s): 68441387 (2) Adenocarcinoma of gastroesophageal junction Current Visit: Yes Status: Acute Priority: High Code(s): C16.0 - MALIGNANT NEOPLASM OF CARDIA SNOMED Code(s): 543373496 (3) Microcytic anemia Current Visit: Yes Status: Acute Priority: Medium Code(s): D50.9 - IRON DEFICIENCY ANEMIA, UNSPECIFIED SNOMED Code(s): 540149243 Plan: Blood in the PEG tube, hematemesis. No vomiting or hematemesis today. Pain at the PEG insertion site is much improved after BM. PEG feedings held for high residuals. Anemia. Patient did receive 1 unit of blood for a hemoglobin of 6.8. Hgb stable today. Anemia workup positive for inflammation, no iron at this time. Patient was started on fentanyl, he is reporting good pain relief. Continue. Medications for prevention of narcotic-induced constipation, continue. Case was discussed with Primary Oncologist. Based on the patient's symptoms and acute bleeding (this has happened previously) Radiation Oncology has been c onsulted and started palliative radiation.
--- NOTE | 2022-07-09 14:24 | P.PN ---
Subjective Progress Note Date: 07/09/22 Principal diagnosis: Metastatic esophageal adenocarcinoma. Friable tumor leading to upper GI bleeding In follow-up today patient tube feed is off again for high residuals, he denies N,V, abdominal discomfort is stable, more notable superior to the tube-likely where malignancy is, no fevers, cough, diarrhea, he is ambulating. Objective - Vital Signs Vital signs: Vital Signs Temp 98.7 F 07/09/22 04:42 Pulse 68 07/09/22 04:42 Resp 16 07/09/22 04:42 BP 110/68 07/09/22 04:42 Pulse Ox 100 07/09/22 04:42 FiO2 Intake & Output 07/08/22 07/09/22 07/09/22 18:59 06:59 18:59 Output Total 201 0 Balance -201 0 Weight 63 kg 64.5 kg Output: Urine 200 Stool 1 0 Other: Voiding Method Urinal - Constitutional General appearance: Present: average body habitus, cooperative, no acute distress - EENT Eyes: Present: anicteric sclerae, EOMI ENT: Present: hearing grossly normal - Respiratory Details: resp even and unlabored - Peripheral edema leg Peripheral Edema: bilateral: None - Gastrointestinal Gastrointestinal Comment(s): PEG insertion clean, dry, no redness or swelling. General gastrointestinal: Present: soft, tenderness (superior to PEG) - Neurologic Neurologic: Present: CNII-XII intact - Musculoskeletal Musculoskeletal: Present: generalized weakness - Psychiatric Psychiatric: Present: A&O x's 3, appropriate affect, intact judgment & insight - Labs CBC & Chem 7: 07/08/22 04:42 07/08/22 04:42 Labs: Abnormal Lab Results - Last 24 Hours (Table) 07/08/22 Range/Units 04:42 Sodium 129 L (135-145) mmol/L Chloride 94 L (96-109) mmol/L BUN 7.4 L (9.0-27.0) mg/dL Creatinine 0.5 L (0.6-1.5) mg/dL Calcium 7.8 L (8.7-10.3) mg/dL Alkaline Phosphatase 300 H (41-126) U/L Albumin 3.0 L (3.8-4.9) g/dL Globulin 3.6 H (1.6-3.3) g/dL Albumin/Globulin Ratio 0.83 L (1.60-3.17) g/dL Assessment and Plan (1) UGIB (upper gastrointestinal bleed) Current Visit: Yes Status: Acute Priority: High Code(s): K92.2 - GASTROINTESTINAL HEMORRHAGE, UNSPECIFIED SNOMED Code(s): 90290747 (2) Adenocarcinoma of gastroesophageal junction Current Visit: Yes Status: Acute Priority: High Code(s): C16.0 - MALIGNANT NEOPLASM OF CARDIA SNOMED Code(s): 801375581 (3) Microcytic anemia Current Visit: Yes Status: Acute Priority: Medium Code(s): D50.9 - IRON DEFICIENCY ANEMIA, UNSPECIFIED SNOMED Code(s): 969485054 Plan: Blood in the PEG tube, hematemesis on adm. No vomiting, blood in PEG tube, black or bloody stool. PEG feedings held for high residuals again. Reglan started. Anemia. Patient did receive 1 unit of blood for a hemoglobin of 6.8. Hgb stable today. Anemia workup positive for inflammation, no iron at this time. Patient was started on fentanyl, he is reporting good pain relief. Continue. Radiation Oncology has been consulted and started palliative radiation. Onc f/u in DC plan Attests: I have seen and examined pt, perfomred H&P, developed impression and plan of care. Discussed with dictator. Agree with documentation, dictated as a scribe.
[2022-07-10] MEDS: HYDROmorphone 0.5 MG/0.5 ML SYRINGE IVP PRN ×3 (01:08→13:16)
[2022-07-10] MEDS: METOCLOPRAMIDE 5 MG/ML 2 ML VIAL IVP SCH ×2 (06:03→13:13)
[2022-07-10] MEDS: bisacodyL 10 MG SUPP RECTAL SCH (08:09)
[2022-07-10] MEDS: SENNOSIDES-DOCUSATE SODIUM 1 EACH TAB PO SCH (08:09)
[2022-07-10] MEDS: PANTOPRAZOLE 40 MG/10 ML VIAL IV SCH (08:10)
[2022-07-10] MEDS: SODIUM CHLORIDE 0.9% 1,000 ML IV SCH ×2 (08:10→14:26)
[2022-07-10 11:45] VITALS: BP 126/82; PULSE 69; RESP 18; TEMP 98.1
[2022-07-10 14:19] LABS: Anisocytosis Slight; Basophils % (A) 1 %; Eosinophils # (A) 0.3 k/uL (0-0.7); Eosinophils % (A) 4 %; HCT 27.3 % (39.0-53.0); HGB 8.4 gm/dL (13.0-17.5); Hypochromasia Marked; Lymphocytes # (A) 0.9 k/uL (1.0-4.8); Lymphocytes % (A) 13 %; MCH 25.1 pg (25.0-35.0); MCHC 30.7 g/dL (31.0-37.0); Mean Platelet Volume 7.7; Monocytes # (A) 0.4 k/uL (0-1.0); Monocytes % (A) 7 %; Neutrophils % (A) 75 %; Platelet Count 440 k/uL (150-450); Poikilocytosis Moderate; RBC 3.33 m/uL (4.30-5.90); RDW 17.4 % (11.5-15.5); WBC 6.7 k/uL (3.8-10.6)
[2022-07-10 14:45] LABS: ALT 25 U/L (4-49); AST 25 U/L (17-59); African American GFR (CKD) >90 (>60 ml/min/1.73 sqM); Albumin 3.1 g/dL (3.5-5.0); Albumin/Globulin Ratio 0.9; Alkaline Phosphatase 295 U/L (38-126); Anion Gap 8 mmol/L; Blood Urea Nitrogen 4 mg/dL (9-20); Calcium 7.3 mg/dL (8.4-10.2); Carbon Dioxide 25 mmol/L (22-30); Chloride 98 mmol/L (98-107); Globulin 3.6 g/dL; Glucose 123 mg/dL (74-99); Magnesium 1.9 mg/dL (1.6-2.3); Non-African American GFR(CKD) >90 (>60 ml/min/1.73 sqM); Potassium 3.4 mmol/L (3.5-5.1); Sodium 131 mmol/L (137-145); Total Bilirubin 0.4 mg/dL (0.2-1.3); Total Protein 6.7 g/dL (6.3-8.2)
[2022-07-10 16:24] VITALS: BMI 22.3
--- NOTE | 2022-07-10 20:19 | PN ---
PROGRESS NOTE CHIEF COMPLAINT: Carcinoma of the esophagus. HISTORY OF PRESENT ILLNESS: This gentleman is feeling a lot better. He has had radiation therapy treatment. He is not having a great deal of pain. PHYSICAL EXAMINATION: CHEST: Clear. CARDIAC: Normal. ABDOMEN: Soft. PEG tube is in place. IMPRESSION: Carcinoma of the esophagus. PLAN: Continue with treatments and continue to work on discharge location and plan. MMODL / IJN: [id number] /
--- NOTE | 2022-07-10 20:35 | PN ---
PROGRESS NOTE CHIEF COMPLAINT: Carcinoma of the esophagus. HISTORY OF PRESENT ILLNESS: This gentleman remains very weak. He is going for another treatment today. Discharge planning is being laid out and he can hopefully be moved to a different facility soon. PHYSICAL EXAMINATION: CHEST: Fairly clear. CARDIAC: Normal. ABDOMEN: He is tender over the epigastrium. IMPRESSION: Esophageal carcinoma. PLAN: Continue with feedings and treatments as tolerated. MMODL / IJN: [id number] /
--- NOTE | 2022-07-11 06:34 | PN ---
PROGRESS NOTE CHIEF COMPLAINT: Carcinoma of the esophagus. HISTORY OF PRESENT ILLNESS: This gentleman is doing a bit better. He is able to eat semi-solid foods and the PEG tube is now working. There is no sign of any bleeding. PHYSICAL EXAMINATION: GENERAL: His hydration is improved. CHEST: Clear. CARDIAC: Normal. IMPRESSION: Carcinoma of the esophagus. PLAN: Continue to work toward discharge. He is stating that he expects to go home Wednesday and will be going home, not to a rehab facility. MMODL / IJN: [id number] /
== END 2022-07-10 17:30 | disposition home or self-care (01) | DRG 375 ==
LOC: EC 11:22 → 5NMEDONC 15:34
PROVIDERS: ADMIT Family Medicine; ATTEND Family Medicine
PROC: DD0 Radiation Therapy, Gastrointestinal System, Beam Radiation (ICD-10-PCS; 2022-07-03)
PROC: 30233N1 Transfusion of Nonautologous Red Blood Cells into Peripheral Vein, Percutaneous Approach (ICD-10-PCS; 2022-07-06)
PROC: 3E0336Z Introduction of Nutritional Substance into Peripheral Vein, Percutaneous Approach (ICD-10-PCS; principal; 2022-07-07)
DX: C16.0 Malignant neoplasm of cardia (principal); C79.51 Secondary malignant neoplasm of bone; E87.1 Hypo-osmolality and hyponatremia; D50.0 Iron deficiency anemia secondary to blood loss (chronic); D53.9 Nutritional anemia, unspecified; D72.829 Elevated white blood cell count, unspecified; D75.839 Thrombocytosis, unspecified; F32.A Depression, unspecified; I10 Essential (primary) hypertension; J45.909 Unspecified asthma, uncomplicated; K59.00 Constipation, unspecified; R13.10 Dysphagia, unspecified; Z79.899 Other long term (current) drug therapy; D69.6 Thrombocytopenia, unspecified
CPT/HCPCS: 36415; 74177; 77280; 77290; 77295; 77300; 77332; 77334; 77387; 77412; 80053; 82728; 83540; 83550; 83605; 83690; 83735; 85025; 85610; 85730; 86850; 86900; 86901; 86920; 96374; 96375; 96376; 99285